=== PATIENT | female | born 1940 | race Caucasian/White ===

== ENCOUNTER → 2017-05-02 10:20 | Outpatient (CLI) | payer MEDICARE, SELFPAY ==
[2017-05-02 12:31] LABS: Anion Gap 5 (5-15); BUN 18 mg/dL (7-18); BUN/Creat Ratio 22.3 RATIO (10-20); Calcium,Total 9.4 mg/dL (8.5-10.1); Chloride 102 mmol/L (98-107); Cholesterol 193 mg/dL (200); Creatinine, Serum 0.81 mg/dL (0.55-1.02); EST Glomerular Filtration Rate 73 mL/min (>60); Est Glom Filt Rate - Afr Amer 88 mL/min (>60); Free T3 2.7 pg/mL (2.18-3.98); Glucose 85 mg/dL (74-106); High Density Lipoprotein 61 mg/dL; Potassium 4.4 mmol/L (3.5-5.1); Sodium Level 137 mmol/L (136-145); T4 Total, Thyroxin 10.5 ug/dL (4.8-13.9); Thyroid Stim Hormone (TSH) 2.29 uIU/mL (0.358-3.74); Triglycerides 132 mg/dL; Very Low Density Lipoprotein 26 mg/dL (5-40)
== END ==
PROVIDERS: Family Provider Family Medicine; PCP Family Medicine; Visit Provider Family Medicine
DX: I10 Essential (primary) hypertension (principal); E03.9 Hypothyroidism, unspecified
CPT/HCPCS: 36415; 80048; 80061; 84436; 84443; 84481

== ENCOUNTER → 2017-05-23 08:10 | Outpatient (CLI) | payer MEDICARE, SELFPAY ==
--- NOTE | 2017-05-23 08:15 | BI_ITS ---
MAMMOGRAPHY - BILATERAL SCREENING REASON FOR EXAM: Female, 77 years old. Routine annual screening examination. PERTINENT HISTORY: Mother with breast cancer. TECHNIQUE: Digital bilateral breast eze (3D mammographic acquisition) in the CC and MLO projections. 2-D mediolateral oblique (MLO) and craniocaudad (CC) views of both breasts were obtained. CAD: Full Field Digital Mammography with Computer Added Detection was performed. COMPARISON: Comparison is made with prior study dated March 19, 2016 and March 18, 2015. FINDINGS: Breast Composition: The breasts are heterogeneously dense, which may obscure small masses. There are no dominant masses or suspicious calcifications. Stable appearance of the benign calcifications in the deep inferior midportion of the right breast. No other significant abnormalities are identified. There has been no significant change since the prior study. BI/SCREENING MAMM (CAD), BILAT IMPRESSION: Stable bilateral screening mammogram. Yearly follow-up mammogram recommended. (A) ASSESSMENT CATEGORY: BIRADS Category 2: Benign. A letter regarding these results will be sent to the patient by the facility within 30 days. Approximately 10% of breast cancers are not detected by mammography. A normal mammogram should not delay biopsy of a clinically suspicious abnormality. [id number] Electronically Signed: Graham Tabor MD at 9:58 EDT Tel [phone], Service support ,
== END ==
PROVIDERS: Family Provider Family Medicine; PCP Family Medicine; Visit Provider Family Medicine
DX: Z12.31 Encounter for screening mammogram for malignant neoplasm of breast (principal)
CPT/HCPCS: 77063; 77067

== ENCOUNTER → 2017-11-04 10:07 | Outpatient (CLI) | payer MEDICARE, SELFPAY ==
[2017-11-04 12:40] LABS: Anion Gap 5 (5-15); BUN 19 mg/dL (7-18); BUN/Creat Ratio 22.4 RATIO (10-20); Calcium,Total 9.3 mg/dL (8.5-10.1); Chloride 103 mmol/L (98-107); Creatinine, Serum 0.85 mg/dL (0.55-1.02); EST Glomerular Filtration Rate 69 mL/min (>60); Est Glom Filt Rate - Afr Amer 83 mL/min (>60); Glucose 76 mg/dL (74-106); Potassium 4.2 mmol/L (3.5-5.1); Sodium Level 137 mmol/L (136-145); Thyroid Stim Hormone (TSH) 1.88 uIU/mL (0.358-3.74)
== END ==
PROVIDERS: Family Provider Family Medicine; PCP Family Medicine; Visit Provider Family Medicine
DX: I10 Essential (primary) hypertension (principal); E03.9 Hypothyroidism, unspecified
CPT/HCPCS: 36415; 80048; 84443

== ENCOUNTER → 2017-12-12 16:07 | Outpatient (CLI) | payer MEDICARE, SELFPAY | PROVIDERS: Family Provider Family Medicine; PCP Family Medicine; Visit Provider Family Medicine | DX: R19.7 Diarrhea, unspecified (principal) | CPT/HCPCS: 87493 ==

== ENCOUNTER → 2018-01-13 16:43 | Outpatient (CLI) | payer MEDICARE, SELFPAY ==
[2018-01-13 17:55] LABS: Absolute Lymphocyte Count 1.08 X10^3/ul (0.83-4.51); Absolute Neutrophil Count 14.5 X10^3/uL (2.0-7.7); Basophil# 0.04 X10^3/uL; Basophil% 0.2 % (0-1); Eosinophil# 0.24 X10^3/uL; Eosinophils% 1.4 % (0-5); Hematocrit 37.3 % (37-47); Hemoglobin 12.5 g/dl (12.0-15.0); Lymphocyte # 1.08 X10^3/ul (4.0); Lymphocyte % 6.3 % (19-41); Mean Corp Hgb Conc 33.5 g/gl (32-36); Mean Corpuscular Hgb 30.3 pg (27.0-32.0); Mean Corpuscular Volume 90.3 fL (81-99); Mean Platelet Vol. 9.7 fl (6.2-12.0); Monocyte# 1.35 X10^3/uL; Monocyte% 7.8 % (0-10); Neutrophil # 14.45 X10^3/uL (2.7-7.7); Neutrophil % 83.8 % (47-70); POSITIVE COUNT NO; POSITIVE DIFFERENTIAL NO; POSITIVE MORPHOLOGY NO; Platelet Count 292 K/mm3 (150-450); RBC Distribution Width CV 12.5 % (11.6-14.6); RBC Distribution Width SD 40.8 fl (35.1-43.9); Red Blood Count 4.13 M/mm3 (4.2-5.4); White Blood Count 17.3 K/mm3 (4.4-11.0)
[2018-01-13 18:22] LABS: ALB/GLOB Ratio 1.1 RATIO (0.9-2.4); AST(SGOT) 24 U/L (15-37); Alanine Aminotransfer ALT/SGPT 22 U/L (13-56); Albumin, Serum 3.3 g/dL (3.2-5.0); Alkaline Phosphatase 62 U/L (45-117); Anion Gap 9 (5-15); BUN 20 mg/dL (7-18); BUN/Creat Ratio 23.9 RATIO (10-20); Calcium,Total 9.5 mg/dL (8.5-10.1); Chloride 99 mmol/L (98-107); Creatinine, Serum 0.84 mg/dL (0.55-1.02); EST Glomerular Filtration Rate 70 mL/min (>60); Est Glom Filt Rate - Afr Amer 84 mL/min (>60); Globulin 3.1 g/dL (2.2-4.2); Glucose 108 mg/dL (74-106); Potassium 3.9 mmol/L (3.5-5.1); Protein, Total 6.4 g/dL (6.4-8.2); Sodium Level 135 mmol/L (136-145)
== END ==
PROVIDERS: Family Provider Family Medicine; PCP Family Medicine; Visit Provider Family Medicine
DX: R19.7 Diarrhea, unspecified (principal)
CPT/HCPCS: 36415; 80053; 85025; 87177; 87209; 87493; 87506

== ENCOUNTER → 2018-01-24 10:28 | Outpatient (CLI) | payer MEDICARE, SELFPAY ==
[2018-01-24 12:50] LABS: Absolute Lymphocyte Count 1.22 X10^3/ul (0.83-4.51); Absolute Neutrophil Count 9.1 X10^3/uL (2.0-7.7); Basophil# 0.12 X10^3/uL; Eosinophil# 0.11 X10^3/uL; Hematocrit 38.2 % (37-47); Hemoglobin 12.8 g/dl (12.0-15.0); Lymphocyte # 1.22 X10^3/ul (4.0); Lymphocyte % 10.5 % (19-41); Mean Corp Hgb Conc 33.5 g/gl (32-36); Mean Corpuscular Hgb 29.7 pg (27.0-32.0); Mean Corpuscular Volume 88.6 fL (81-99); Mean Platelet Vol. 9.5 fl (6.2-12.0); Monocyte# 0.89 X10^3/uL; Monocyte% 7.7 % (0-10); Neutrophil % 78.7 % (47-70); Platelet Count 358 K/mm3 (150-450); RBC Distribution Width CV 12.5 % (11.6-14.6); RBC Distribution Width SD 39.5 fl (35.1-43.9); Red Blood Count 4.31 M/mm3 (4.2-5.4); White Blood Count 11.6 K/mm3 (4.4-11.0)
[2018-01-24 13:02] LABS: POSITIVE COUNT NO; POSITIVE DIFFERENTIAL NO; POSITIVE MORPHOLOGY NO
[2018-01-24 13:32] LABS: Erythrocyte Sedimentation Rate 4 mm/hr (0-30)
[2018-01-24 14:04] LABS: ALB/GLOB Ratio 1.2 RATIO (0.9-2.4); AST(SGOT) 36 U/L (15-37); Alanine Aminotransfer ALT/SGPT 45 U/L (13-56); Albumin, Serum 3.3 g/dL (3.2-5.0); Alkaline Phosphatase 44 U/L (45-117); Anion Gap 11 (5-15); BUN 11 mg/dL (7-18); BUN/Creat Ratio 14.2 RATIO (10-20); CRP < 2.90 mg/L (0.0-3.0); Calcium,Total 8.9 mg/dL (8.5-10.1); Chloride 98 mmol/L (98-107); Creatinine, Serum 0.78 mg/dL (0.55-1.02); EST Glomerular Filtration Rate 76 mL/min (>60); Est Glom Filt Rate - Afr Amer 92 mL/min (>60); Ferritin 192 ng/mL (8-252); Globulin 2.7 g/dL (2.2-4.2); Glucose 98 mg/dL (74-106); Potassium 3.9 mmol/L (3.5-5.1); Sodium Level 132 mmol/L (136-145); Thyroid Stim Hormone (TSH) 2.01 uIU/mL (0.358-3.74)
--- OUTSIDE RECORDS SUMMARY | 2018-03-12 01:28 | XMS RPT_ITS ---
:1940 Author Organization OHIP Support Name Relationship Address Phone STEVEN KELLER Unavailable [address] + [place] [address] JAJA KELLER Unavailable [address] + [place] [address] R Unavailable Unavailable Unavailable STEVEN KELLER Unavailable [address] + [place] [address] JAJA KELLER Unavailable [address] + [place] [address] R Unavailable Unavailable Unavailable STEVEN KELLER Unavailable [address] + [place] [address] JAJA KELLER Unavailable [address] + [place] [address] R Unavailable Unavailable Unavailable STEVEN KELLER Unavailable [address] + [place] [address] JAJA KELLER Unavailable [address] + [place] [address] R Unavailable Unavailable Unavailable STEVEN KELLER Unavailable [address] + [place] [address] R Unavailable Unavailable Unavailable STEVEN KELLER Unavailable [address] + [place] [address] R Unavailable Unavailable Unavailable STEVEN KELLER Unavailable [address] + [place] [address] R Unavailable Unavailable Unavailable STEVEN KELLER Unavailable [address] + [place] [address] R Unavailable Unavailable Unavailable STEVEN KELLER Unavailable [address] + [place] [address] R Unavailable Unavailable Unavailable STEVEN KELLER Unavailable [address] + [place] [address] R Unavailable Unavailable Unavailable Care Team Providers Name Role Phone Akhil Monge Attending Unavailable Rivera, Ángel Primary Care Unavailable Monge, Akhil Attending Unavailable Monge, Akhil Referring Unavailable Rivera, Ángel Primary Care Unavailable Rivera, Ángel Attending Unavailable Rivera, Ángel Primary Care Unavailable Ashlie, Dereck Attending Unavailable Rivera, Ángel Referring Unavailable [facility], Dereck Attending Unavailable Ashlie, Dereck Referring Unavailable Rivera, Ángel Primary Care Unavailable Ashlie, Dereck Attending Unavailable Rivera, Ángel Referring Unavailable Rivera, Ángel Attending Unavailable Rivera, Ángel Referring Unavailable Rivera, Ángel Primary Care Unavailable Rivera, Ángel Attending Unavailable Rivera, Ángel Primary Care Unavailable Rivera, Ángel Attending Unavailable Rivera, Ángel Primary Care Unavailable Rivera, Ángel Attending Unavailable Rivera, Ángel Primary Care Unavailable PROBLEMS PROBLEMS DATE TYPE CONDITION / CODE ATTENDING STATUS SOURCE 11/04/2017 Unknown I10 - Essential RiveraÁngel layen Active [facility] (primary) Community hypertension / Hospital I10(ICD-10) Repository 11/04/2017 Unknown E03.9 - RiveraÁngel layne Active [facility] Hypothyroidism, Community unspecified / Hospital E03.9(ICD-10) Repository 06/15/2017 Unknown Z12.31 - Encounter RiveraÁngel layne Active [facility] for screening [facility] mammogram for Hospital malignant neoplasm Repository of breast / Z12.31(ICD-10) PROCEDURES PROCEDURES No Procedure Records FoundRESULTS RESULTS SURGERY VISIT REPORT Observed: 02/24/2018 Status: F Source: [facility] 12:28 PM [facility] REPOSITORY [facility] [address] [place] [address] [address] [place] [address] OFFICE VISIT Date of Service: 02/19/18 MR#: [id number] Acct: [id number] Name: KLEVER KELLERH Sidney Rep #: [id number] : 1940 Provider: Dereck Dailey MD Age/Sex: 77/F Location: [facility] Status: Signed Intake Vital Signs02/19/18 Height 5 ft 6 in 02/19/18 Weight: 160 lb Intake Visit Reasons: Consult Upper AND Lower Scope Routeman Required: No Is patient in pain?: No Allergies No Known Allergies Allergy (Verified 02/21/18 09:12) Medications Lactobacillus acidophilus 1.5 mg (250 million cell) capsule 100 mmu cells PO DAILY 02/19/18 [History Confirmed 02/21/18] antiarthritic combination no.2 900 mg tablet 900 mg PO DAILY tab 02/19/18 [History Confirmed 02/21/18] levothyroxine 50 mcg capsule 50 mcg PO DAILY 02/19/18 [History Confirmed 02/21/18] losartan 50 mg tablet 50 mg PO DAILY 02/19/18 [History Confirmed 02/21/18] metoprolol succinate ER 100 mg tablet,extended release 24 hr 100 mg PO DAILY 02/19/18 [History Confirmed 02/21/18] multivit,mineral-folic acid 800 mcg-vit K 100 mcg-herbal no.289 tablet 1 tab PO DAILY tab 02/19/18 [History Confirmed 02/21/18] omeprazole 20 mg tablet,delayed release 20 mg PO DAILY 02/19/18 [History Confirmed 02/21/18] sucralfate 1 gram tablet 1 g PO QACHS 02/19/18 [History Confirmed 02/21/18] Hydroxychloroquine Sulfate [Plaquenil] 200 mg PO DAILY 02/21/18 [History Confirmed 02/21/18] Wheat Dextrin [Benefiber] 1 ea PO DAILY 02/21/18 [History Confirmed 02/21/18] PFSH Medical History Diarrhea (Acute) Hypertension (Chronic) Rheumatoid arthritis (Acute) Thyroid disease (Acute) Surgical History Hx of colonoscopy (Acute) Family History Mother Arthritis Breast cancer Hypertension Heart disease Father Heart disease High cholesterol Brother Colon cancer Sister Thyroid disorder Social History Smoking Status: Never smoker second hand exposure: No alcohol intake: current alcohol intake frequency: holidays/special occasions only substance use type: does not use caffeine: Yes what type of physical activity do you participate in: aerobics, walking, weight training frequency: 3-4 times per week HPI HPI HPI: BRIAN KELLER, is a 77 F who presents to the office today for evaluation of occasional diarrhea and weight loss. She is noticed some generalized abdominal pain she has been tested for C. difficile is negative. In January she was treated with Cipro and Flagyl was noted to have heme positive stools and a CT of the abdomen and pelvis showed colitis of the left side of the colon. She has noted that her diarrhea has stopped. She still does not have much of any appetite. ROS General General: Yes weight change; no appetite, fatigue, colon cancer, breast cancer or weakness HEENT HEENT: No difficulty swallowing, eye injury, eye surgery, swollen glands or hoarseness Endo Endocrine: Yes thyroid disease; no diabetes mellitus, thyroid cancer, Hair loss, heat intolerance or cold intolerance Skin Skin: No rash or changing moles Musc Musculoskeletal: Yes arthritis and rheumatoid arthritis; no back problems, gout or joint pain Cardio Cardiovascular: Yes high blood pressure; no murmur, pacemaker, heart disease, atrial fibrillation, heart attack, heart stent, palpitations, shortness of breat with exertion or chest pain Psych Psychiatric: No depression, anxiety or hearing voices Resp Respiratory: No shortness of breath, No sleep apnea, No cough, No COPD, No asthma, No emphysema, No wheezing Gastro Gastrointestinal: Yes diarrhea, No abdominal pain, No nausea or vomiting, No constipation, No blood in stool, No acid reflux, No hemorrhoids, No ulcers, No gallbladder problem, No black,tarry stools [facility] Hematologic: No blood thinners, No blood disorders, No bleeding, No anemia, No blood clots Neuro Neurologic: No system reviewed and no additional complaints, except as docu, No as per HPI, No abnormal walking, No abnormal hearing, No abnormal movements, No abnormal speech, No behavioral changes, No burning sensations, No confusion, No seizure-like activity, No unsteadiness, No dizziness, No localized weakness, No frequent falls, No headache(s), No lack of coordination, No loss of vision, No memory loss, No numbness, No other visual disturbances, No radiating pain, No restless legs, No sensory deficit, No fainting, No tingling, No tremor(s), No weakness, No other Exam Const General: well developed, no acute distress, well hydrated Orientation: oriented to person, oriented to place, oriented to time [facility] Head: normocephalic, atraumatic Ears: external ears normal Mouth: moist mucous membranes Eyes Sclera: sclerae normal Pupils: normal by confrontation Neck Neck: no lymphadenopathy noted Neck mass: No Thyroid: symmetrical, thyroid normal Chest Chest palpation AND inspection: normal inspection of the chest Resp Effort AND Inspection: normal respiratory effort Auscultation: clear to auscultation bilaterally Percussion: percussion normal Cardio Rate: regular rate Rhythm: regular rhythm Heart Sounds: no murmurs GI Palpation: soft, no masses, no hepatosplenomegaly, nontender Rectal Exam: other Other: Rectal exam deferred. Extrem General: no clubbing, cyanosis or edema, normal to inspection Assessment AND Plan Problems 1. Diarrhea, unspecified type R19.7 2. Weight loss, non-intentional R63.4 3. Heme positive stool R19.5 Plan I have discussed the above with the patient. I have offered the patient colonoscopy as well as an esophagogastroduodenoscopy for evaluation. I have explained the risks/benefits of the procedure and described the procedure. I have discussed the risks with the patient, including but not limited to: infection, bleeding, perforation of the GI tract requiring emergency surgery, inability to complete the procedure, injury to any internal organs, complications of anesthesia, etc. - the patient understands and agrees to proceed. I have answered all the patient's questions to the patient's satisfaction and the patient has no further questions. The patient has been given instructions for the colon cleansing preparation. Orders Orders: Medications New: Coding Level of Care Code Off vis,new,level 3 Diagnoses Diarrhea, unspecified type R19.7 Diarrhea type: unspecified type Weight loss, non-intentional R63.4 Heme positive stool R19.5 02/24/18 1228 <Electronically signed by Dereck Dailey MD> Date Dereck Dailey MD Cosigner Signature: Date (if applicable) CC: Ángel Rivera MD OPERATIVE REPORT - Observed: 02/24/2018 Status: F Source: [facility] ENDOSCOPY 9:06 AM REPOSITORY [facility] Medical Records Department [address] [place] [address] Operative Report - Endoscopy MR#: [id number] Acct: [id number] Name: BRIAN KELLER Rep #: [id number] : 1940 77 From: Dereck Dailey MD PCP: Ángel Rivera MD Status: REG [facility] Patient Name: Brian Keller Procedure Date: 02/24/2018 8:45 AM Date of : 1940 Age: 77 Procedure: Colonoscopy Indications: Clinically significant diarrhea of unexplained origin, Heme positive stool, Abnormal CT of the GI tract Providers: Dereck Dailey MD Referring MD: Dereck Dailey MD Medicines: See the Anesthesia note for documentation of the administered medications Patient Profile: This is a 77 year old female. Refer to note in patient chart for documentation of history and physical. Last Colonoscopy: more than 10 years ago. Complications: No immediate complications. Procedure: Pre-Anesthesia Assessment: - Prior to the procedure, a History and Physical was performed, and patient medications and allergies were reviewed. The patient's tolerance of previous anesthesia was also reviewed. The risks and benefits of the procedure and the sedation options and risks were discussed with the patient. All questions were answered, and informed consent was obtained. Prior Anticoagulants: The patient has taken no previous anticoagulant or antiplatelet agents. ASA Grade Assessment: II - A patient with mild systemic disease. After reviewing the risks and benefits, the patient was deemed in satisfactory condition to undergo the procedure. - Prior to the procedure, a History and Physical was performed, and patient medications and allergies were reviewed. The patient's tolerance of previous anesthesia was also reviewed. The risks and benefits of the procedure and the sedation options and risks were discussed with the patient. All questions were answered, and informed consent was obtained. Prior Anticoagulants: The patient has taken no previous anticoagulant or antiplatelet agents. ASA Grade Assessment: II - A patient with mild systemic disease. After reviewing the risks and benefits, the patient was deemed in satisfactory condition to undergo the procedure. After I obtained informed consent, the scope was passed under direct vision. Throughout the procedure, the patient's blood pressure, pulse, and oxygen saturations were monitored continuously. The Colonoscope was introduced through the anus and advanced to the cecum, identified by appendiceal orifice and ileocecal valve. The colonoscopy was performed without difficulty. The patient tolerated the procedure well. The quality of the bowel preparation was good. Scope In: 8:46:10 AM Scope Withdrawal Time 0 hours 6 minutes 49 seconds Scope Out: 8:57:23 AM Total Procedure Duration Time 0 hours 11 minutes 13 seconds Findings: Non-bleeding internal hemorrhoids were found during retroflexion. The hemorrhoids were mild and small. A few small-mouthed diverticula were found in the sigmoid colon and descending colon. The colon (entire examined portion) appeared normal. Biopsies for histology were taken with a cold forceps from the entire colon for evaluation of microscopic colitis. The exam was otherwise without abnormality. The exam was otherwise without abnormality. Impression: - Non-bleeding internal hemorrhoids. - Diverticulosis in the sigmoid colon and in the descending colon. - The entire examined colon is normal. Biopsied. - The examination was otherwise normal. Recommendation: - Discharge patient to home. - Resume previous diet. - Continue present medications. - Await pathology results. - Repeat colonoscopy in 5 years for surveillance. - Return to my office in 1 week. Procedure Code(s): --- Professional --- 78070, Colonoscopy, flexible; with biopsy, single or multiple Diagnosis Code(s): --- Professional --- K64.8, Other hemorrhoids R19.7, Diarrhea, unspecified R19.5, Other fecal abnormalities K57.30, Diverticulosis of large intestine without perforation or abscess without bleeding R93.3, Abnormal findings on diagnostic imaging of other parts of digestive tract CPT copyright 2017 [employer]. All rights reserved. The codes documented in this report are preliminary and upon fire hydrant operator review may be revised to meet current compliance requirements. MD Dereck Joseph MD 02/24/2018 9:05:41 AM This report has been signed electronically. Number of Addenda: 0 Note Initiated On: 02/24/2018 8:45 AM 02/24/18 0905 Date Dereck Birch Signature: Date (if indicated) CC: Dereck Dailey MD; Ágnel Rivera MD Date Dictated: 02/24/18 0845 Date Transcribed: Change Management Director: SOCO Signed OPERATIVE REPORT - Observed: 02/24/2018 Status: F Source: [facility] ENDOSCOPY 9:02 AM REPOSITORY [facility] Medical Records Department [address] [place] [address] Operative Report - Endoscopy MR#: [id number] Acct: [id number] Name: BRIAN KELLER Rep #: [id number] : 1940 77 From: Dereck Dailey MD PCP: Ángel Rivera MD Status: REG [facility] Patient Name: Brian Keller Procedure Date: 02/24/2018 8:30 AM Date of : 1940 Age: 77 Procedure: Upper GI endoscopy Indications: Heme positive stool, Abnormal CT of the GI tract Providers: Dereck Dailey MD Referring MD: Dereck Dailey MD Medicines: See the Anesthesia note for documentation of the administered medications Patient Profile: This is a 77 year old female. Refer to note in patient chart for documentation of history and physical. Complications: No immediate complications. Procedure: Pre-Anesthesia Assessment: - Prior to the procedure, a History and Physical was performed, and patient medications and allergies were reviewed. The patient's tolerance of previous anesthesia was also reviewed. The risks and benefits of the procedure and the sedation options and risks were discussed with the patient. All questions were answered, and informed consent was obtained. Prior Anticoagulants: The patient has taken no previous anticoagulant or antiplatelet agents. ASA Grade Assessment: II - A patient with mild systemic disease. After reviewing the risks and benefits, the patient was deemed in satisfactory condition to undergo the procedure. After obtaining informed consent, the endoscope was passed under direct vision. Throughout the procedure, the patient's blood pressure, pulse, and oxygen saturations were monitored continuously. The gastroscope was introduced through the mouth, and advanced to the second part of duodenum. The upper GI endoscopy was accomplished without difficulty. The patient tolerated the procedure well. Scope In: Scope Out: 8:43:51 AM Findings: The Z-line was regular and was found 38 cm from the incisors. The examined esophagus was normal. Localized minimal inflammation characterized by erythema was found in the prepyloric region of the stomach. Biopsies were taken with a cold forceps for Helicobacter pylori testing. The examined duodenum was normal. Biopsies for histology were taken with a cold forceps for evaluation of celiac disease. Impression: - Z-line regular, 38 cm from the incisors. - Normal esophagus. - Gastritis. Biopsied. - Normal examined duodenum. Biopsied. Recommendation: - Await pathology results. - Repeat upper endoscopy (date not yet determined) to assess disease activity. - Return to my office in 1 week. - Continue present medications. Procedure Code(s): --- Professional --- 81143, Esophagogastroduodenoscopy, flexible, transoral; with biopsy, single or multiple Diagnosis Code(s): --- Professional --- K29.70, Gastritis, unspecified, without bleeding R19.5, Other fecal abnormalities R93.3, Abnormal findings on diagnostic imaging of other parts of digestive tract CPT copyright 2017 [employer]. All rights reserved. The codes documented in this report are preliminary and upon fire hydrant operator review may be revised to meet current compliance requirements. MD Dereck Joseph MD 02/24/2018 9:02:20 AM This report has been signed electronically. Number of Addenda: 0 Note Initiated On: 02/24/2018 8:30 AM 02/24/1802 Date Dereck Dailey MD Cosigner Signature: Date (if indicated) CC: Dereck Dailey MD; Ángel Rivera MD Date Dictated: 02/24/18829 Date Transcribed: Change Management Director: DP Signed IMMUNOHISTOCHEMISTRY Observed: 02/24/2018 Status: F Source: [facility] 8:30 AM REPOSITORY Patient: BRIAN KELLER : 1940 (77/F) Acct Num: [id number] Phys: Ashlie ROB,Dereck Unit Num: [id number] Loc: EN Specimen: [id number] Received: 02/24/18 - 1025 Spec Type: IMMUNO TISSUES 1 TISSUES: B. Stomach, NOS SPECIMEN INFORMATION: Tissue Source: B - Antrum biopsy Clinical Info: Heme-positive stool Specimen Number: [id number] CPT code: 42246 METHODOLOGY: Deparaffinized sections of prefer/formalin-fixed tissue or PAP/DQ stained slides are incubated with monoclonal/polyclonal antibodies/oligonucleotide probes. Localization is made via biotin free immunoperoxidase method. Appropriate controls are performed and reacted as expected. Results on target cell population are indicated in the following table: RESULTS: ANTIBODY / CLONE RESULT Block B H Pylori (polyclonal) negative These tests were developed and their performance characteristics determined by [facility]. They may not have been cleared or approved by the U.S. Food and Drug Administration. The FDA has determined that such clearance or approval is not necessary. INTERPRETATION: B. Antrum, biopsy: Negative for Helicobacter pylori organisms. AM:luis 02/25/18 PHYSICIAN AND INSTITUTION [address] [address] Signed Mo Munoz, 02/25/18 <signature on file> Performed By: #### PIMM #### [facility] [address] [place] [address]. [place], [place], [address] EGD ([facility]) Observed: 02/24/2018 Status: F Source: [facility] 8:30 AM REPOSITORY Patient: BRIAN KELLER : 1940 (77/F) Acct Num: [id number] Phys: Dereck Dailey MD Unit Num: [id number] Loc: EN Specimen: [id number] Received: 02/24/18 - 08 Spec Type: EGD BIOPSY TISSUES 1 TISSUES: A. Small intestine biopsy B. Gastric mucous membrane C. COLON BIOPSY COMMENT B. The results of immunohistochemistry for Helicobacter pylori will be reported separately ([id number]). C. Rare neutrophils are seen in glandular epithelium. The mucosa contains increased number of eosinophils. The significance of this is unclear. Clinical correlation is suggested. Trichrome stain with matched control does not reveal a thickened basal plate. GROSS DESCRIPTION A - Received in fixative is one container labeled with the patient's name and designated biopsy of small intestine. The specimen consists of multiple irregular fragments of light novoa soft tissue that in aggregate measure 0.3 x 0.3 x 0.1 cm. The specimen is totally submitted in one cassette. B - Received in fixative is one container labeled with the patient's name and designated antrum biopsy. The specimen consists of one irregular fragment of light novoa soft tissue that measures 0.4 x 0.2 x 0.1 cm. The specimen is totally submitted in one cassette. C - Received in fixative is one container labeled with the patient's name and designated random colon biopsy. The specimen consists of multiple irregular fragments of light novoa soft tissue that in aggregate measure 2.5 x 0.5 x 0.1 cm. The specimen is totally submitted in one cassette. / SJ:luis 02/24/18 TC:5 CPT: 10255 x3, 14635 HEADER OPERATION: Colonoscopy, EGD ([facility]) PRE-OP DIAGNOSIS: Heme-positive stool TISSUE SUBMITTED: A - Biopsy of small intestine, B - Antrum biopsy for H. pylori and path, C - Random colon biopsies MICROSCOPIC DESCRIPTION Slides are reviewed. MICROSCOPIC DIAGNOSIS A. Small bowel, biopsy: No significant pathologic change. No evidence of enteritis. B. Gastric antrum, biopsy: Mild chronic gastritis. C. Colon, random biopsy: Rare cryptitis. See comment. AM:luis 02/25/18 Signed Mo Munoz, 02/25/18 <signature on file> Performed By: #### PEGD #### [facility] [address] [place], [address] ABDOMEN/PELVIS WITHOUT Observed: 01/31/2018 Status: F Source: [facility] CONT 7:14 AM REPOSITORY [facility] Imaging Services [address] [place] [address] Abdomen/Pelvis without Cont MR#: [id number] Acct: [id number] Name: BRIAN KELLER Rep #: [id number] : 1940 F 77 From: Mitchel Scott PCP: Ángel Rivera MD Status: REG CLI Study: Abdomen/Pelvis without Cont Date of Exam: 01/31/18 Exam# [id number] Ordering Dr: Akhil Monge MD STUDY: CT ABDOMEN AND PELVIS WITHOUT CONTRAST REASON FOR EXAM: Female, 77 years old. Persistent diarrhea RADIATION DOSAGE (If Supplied By Facility): CTDIvol = ( 8.96 ) mGy, DLP = ( 402.80 ) mGycm TECHNIQUE: Transaxial images were obtained from the dome of the diaphragm to the symphysis pubis without oral contrast, and without intravenous contrast. Sagittal and coronal images were reconstructed. Individualized dose optimization techniques were used for this CT. COMPARISON: None. FINDINGS: The visualized lung bases are unremarkable. The visualized portions of the heart are within normal limits. Normal liver. Normal gallbladder and extrahepatic biliary system. Normal spleen. Normal pancreas. Normal bilateral adrenal glands. There are NO kidney stones or ureteral stones. There is NO hydronephrosis. There are bilateral kidney cysts. There are 2 discrete dense mass is in the LEFT kidney which could be hemorrhagic cysts. Normal visualized stomach. Normal small intestine. There is mild thickening of the LEFT colon suggesting mild colitis. There is NO diverticulitis, obstruction or mass. The appendix is visualized and appears normal. Normal abdominal aorta. Normal inferior vena cava. Normal retroperitoneum. Normal urinary bladder. There is atrophy of the uterus. There is NO ascites or free air, abscess or adenopathy. Normal abdominal wall. Normal osseous structures. CT/Abdomen/Pelvis without Cont IMPRESSION: There are NO kidney stones or ureteral stones. There is NO hydronephrosis. There are bilateral kidney cysts. There are 2 discrete dense mass is in the LEFT kidney which could be hemorrhagic cysts. There is mild thickening of the LEFT colon suggesting mild colitis. There is NO diverticulitis, obstruction or mass. The appendix is visualized and appears normal. There is NO ascites or free air, abscess or adenopathy. Electronically Signed: Mitchel Scott MD at 7:47 EST , Service support , CC: Akhil Monge MD; Ángel Rivera MD Change Management Director: Signed CBC W/DIFF, AUTOMATED Collected: 01/24/2018 Status: F Source: [facility] 10:29 AM REPOSITORY TYPE CODE TESTS RESULT OUT OF RANGE REFERENCE UNITS LAB L100.1000 4.4-11.0 K/mm3 High WBC 11.6 LAB L100.1200 4.2-5.4 M/mm3 Normal RBC 4.31 LAB L100.1300 12.0-15.0 g/dl Normal HGB 12.8 LAB L100.1400 37-47 % Normal HCT 38.2 LAB L100.1500 81-99 fL Normal MCV 88.6 LAB L100.1600 27.0-32.0 pg Normal MCH 29.7 LAB L100.1700 32-36 g/gl Normal MCHC 33.5 LAB L100.1810 11.6-14.6 % Normal RDW CV 12.5 LAB L100.1820 35.1-43.9 fl Normal RDW SD 39.5 LAB L100.1900 150-450 K/mm3 Normal PLT 358 LAB L100.2000 6.2-12.0 fl Normal MPV 9.5 LAB L100.2100 47-70 % High NEUT% 78.7 LAB L100.2200 19-41 % Low LY% 10.5 LAB L100.2300 0-10 % Normal MONO% 7.7 LAB L100.2400 0-5 % Normal EO% 1.0 LAB L100.2500 0-1 % Normal BASO% 1.0 LAB L100.2550 0.0-0.9 % High IM GRAN % 1.100 Result Comment: IG% - Immature Granulocytes (promyelocytes, myelocytes and metamyelocytes) > 1% indicates that a LEFT SHIFT is Present. LAB L100.2620 2.0-7.7 X10 3/uL High Absolute Neut 9.1 LAB L100.2720 0.83-4.51 X10 3/ul Normal Absolute Lymph 1.22 Performed By: #### L100.0100, L101.9900 #### [facility] [address] [place], [place], [id number] ERYTHROCYTE SED RATE Collected: 01/24/2018 Status: F Source: [facility] 10:29 AM REPOSITORY TYPE CODE TESTS RESULT OUT OF RANGE REFERENCE UNITS LAB L102.0000 0-30 mm/hr Normal SED RATE 4 Performed By: #### L100.0100, L101.9900 #### [facility] [address] [place], [address] COMPREHENSIVE METABOLIC Collected: 01/24/2018 Status: F Source: [facility] 10:29 AM REPOSITORY TYPE CODE TESTS RESULT OUT OF RANGE REFERENCE UNITS LAB L501.0100 74-106 mg/dL Normal GLU 98 Result Comment: Please note revised GLUCOSE reference range effective 2017. LAB L501.1000 7-18 mg/dL Normal BUN 11 LAB L501.1100 0.55-1.02 mg/dL Normal CREAT,SERUM 0.78 Result Comment: The validity of the calculated GFR AND GFRAA in patients over 70 years has not been determined. Clinical correlation is essential. LAB L501.1110 >60 mL/min Normal EST GFR 76 Result Comment: Non- GFR Calc LAB L501.1115 >60 mL/min Normal EST GFR - AA 92 Result Comment: GFR Calc LAB L501.1300 10-20 RATIO Normal BUN/CRE 14.2 LAB L501.1500 6.4-8.2 g/dL Low T PROT 6.0 LAB L501.1800 3.2-5.0 g/dL Normal ALB 3.3 LAB L501.1950 2.2-4.2 g/dL Normal GLOB 2.7 LAB L501.2000 0.9-2.4 RATIO Normal A/G 1.2 LAB L501.2200 8.5-10.1 mg/dL CA Normal 8.9 LAB L501.4100 15-37 U/L Normal AST 36 LAB L501.4305 45-117 U/L Low ALK P 44 LAB L501.4405 13-56 U/L Normal ALT 45 LAB L501.4600 0.20-1.00 mg/dL T Normal BILI 0.40 LAB L501.5300 136-145 mmol/L Low NA 132 LAB L501.5600 3.5-5.1 mmol/L K Normal 3.9 LAB L501.5900 98-107 mmol/L CL Normal 98 LAB L501.6100 21.0-32.0 mmol/L Normal CO2 23.0 LAB L501.6200 5-15 Normal GAP 11 Performed By: #### L500.4050, L501.6710, L501.9520, L503.6550 #### [facility] [address] [place], [address] CRP Collected: 01/24/2018 Status: F Source: [facility] 10:29 AM REPOSITORY TYPE CODE TESTS RESULT OUT OF RANGE REFERENCE UNITS LAB L501.6710 0.0-3.0 mg/L Normal < 2.90 C-REACTIVE PROT Result Comment: C-Reactive Protein (CRP) provides useful information for the diagnosis, therapy and monitoring of inflammatory processes and associated diseases. For the evaluation of Relative Risk for Cardiovascular Disease, a High Sensitivity CRP (HSCRP) should be ordered. Performed By: #### L500.4050, L501.6710, L501.9520, L503.6550 #### [facility] [address] [place], [address] THYROID STIM HORMONE Collected: 01/24/2018 Status: F Source: [facility] (TSH) 10:29 AM REPOSITORY TYPE CODE TESTS RESULT OUT OF RANGE REFERENCE UNITS LAB L501.9520 0.358-3.74 uIU/mL Normal TSH 2.01 Performed By: #### L500.4050, L501.6710, L501.9520, L503.6550 #### [facility] [address] [place], [address] FERRITIN Collected: 01/24/2018 Status: F Source: [facility] 10:29 AM REPOSITORY TYPE CODE TESTS RESULT OUT OF RANGE REFERENCE UNITS LAB L503.6550 8-252 ng/mL Normal FERRITIN 192 Performed By: #### L500.4050, L501.6710, L501.9520, L503.6550 #### [facility] [address] [place], [address] CBC W/DIFF, AUTOMATED Collected: 01/13/2018 Status: F Source: [facility] 5:00 PM REPOSITORY TYPE CODE TESTS RESULT OUT OF RANGE REFERENCE UNITS LAB L100.1000 4.4-11.0 K/mm3 High WBC 17.3 LAB L100.1200 4.2-5.4 M/mm3 Low RBC 4.13 LAB L100.1300 12.0-15.0 g/dl Normal HGB 12.5 LAB L100.1400 37-47 % Normal HCT 37.3 LAB L100.1500 81-99 fL Normal MCV 90.3 LAB L100.1600 27.0-32.0 pg Normal MCH 30.3 LAB L100.1700 32-36 g/gl Normal MCHC 33.5 LAB L100.1810 11.6-14.6 % Normal RDW CV 12.5 LAB L100.1820 35.1-43.9 fl Normal RDW SD 40.8 LAB L100.1900 150-450 K/mm3 Normal PLT 292 LAB L100.2000 6.2-12.0 fl Normal MPV 9.7 LAB L100.2100 47-70 % High NEUT% 83.8 LAB L100.2200 19-41 % Low LY% 6.3 LAB L100.2300 0-10 % Normal MONO% 7.8 LAB L100.2400 0-5 % Normal EO% 1.4 LAB L100.2500 0-1 % Normal BASO% 0.2 LAB L100.2550 0.0-0.9 % Normal IM GRAN % 0.500 Result Comment: IG% - Immature Granulocytes (promyelocytes, myelocytes and metamyelocytes) > 1% indicates that a LEFT SHIFT is Present. LAB L100.2620 2.0-7.7 X10 3/uL High Absolute Neut 14.5 LAB L100.2720 0.83-4.51 X10 3/ul Normal Absolute Lymph 1.08 Performed By: #### L100.0100 #### [facility] [address] [place], [address] COMPREHENSIVE METABOLIC Collected: 01/13/2018 Status: F [facility] REPOSITORY TYPE CODE TESTS RESULT OUT OF RANGE REFERENCE UNITS LAB L501.0100 74-106 mg/dL High GLU 108 Result Comment: Fasting Glucose result from 100 to 125 mg/dL suggests IMPAIRED HOMEOSTASIS per A.D.A. criteria. Please note revised GLUCOSE reference range effective 2017. LAB L501.1000 7-18 mg/dL High BUN 20 LAB L501.1100 0.55-1.02 mg/dL Normal CREAT,SERUM 0.84 Result Comment: The validity of the calculated GFR AND GFRAA in patients over 70 years has not been determined. Clinical correlation is essential. LAB L501.1110 >60 mL/min Normal EST GFR 70 Result Comment: Non- GFR Calc LAB L501.1115 >60 mL/min Normal EST GFR - AA 84 Result Comment: GFR Calc LAB L501.1300 10-20 RATIO High BUN/CRE 23.9 LAB L501.1500 6.4-8.2 g/dL T Normal PROT 6.4 LAB L501.1800 3.2-5.0 g/dL Normal ALB 3.3 LAB L501.1950 2.2-4.2 g/dL Normal GLOB 3.1 LAB L501.2000 0.9-2.4 RATIO Normal A/G 1.1 LAB L501.2200 8.5-10.1 mg/dL CA Normal 9.5 LAB L501.4100 15-37 U/L Normal AST 24 LAB L501.4305 45-117 U/L Normal ALK P 62 LAB L501.4405 13-56 U/L Normal ALT 22 LAB L501.4600 0.20-1.00 mg/dL T Normal BILI 0.40 LAB L501.5300 136-145 mmol/L Low NA 135 LAB L501.5600 3.5-5.1 mmol/L K Normal 3.9 LAB L501.5900 98-107 mmol/L CL Normal 99 LAB L501.6100 21.0-32.0 mmol/L Normal CO2 27.0 LAB L501.6200 5-15 Normal GAP 9 Performed By: #### L500.4050 #### [facility] [address] [place], [address] Observed: 01/13/2018 Status: F Source: [facility] CDIFF (MOLECULAR) 5:00 PM REPOSITORY Cdiff-Molecular Normal Reference Range = Negative C. Diff DNA Negative- No toxigenic C. Diff DNA Detected NAAT METHOD Testing was performed using nucleic acid amplification Performed By: #### M100.6796, M100.637 #### [facility] [address] [place], [address] Observed: 01/13/2018 Status: F Source: [facility] ENTERIC PATHOGEN 5:00 PM PANEL STOOL REPOSITORY EP PANEL STOOL Normal Reference Range = Not Detected Not detected for Campylobacter group, Salmonella species, Shigella species, Vibrio Group, Yersinia enterocolitica, EHEC (Shiga Toxin 1, Shiga Toxin 2), Norovirus Gl/Gll, and Rotavirus A. Other common stool pathogens are not detected on this panel include: Aeromonas/Plesiomonas or parasites. Order testing for these organisms separately if suspected. This is an amplified DNA test which makes it both specific and sensitive. CAMPYLOBACTER Not Detected Salmonella Not Detected Shigella sp. Not Detected Shiga Toxin Not Detected Yersinia Not Detected VIBRIO Not Detected Norovirus Not Detected Rotavirus Not Detected Performed By: #### M100.6796, M100.637 #### [facility] [address] [place], [address] Observed: 01/13/2018 Status: F Source: [facility] OVA AND PARASITES 5:00 PM REPOSITORY O + P OVA AND PARASITES EXAM, ROUTINE These results were obtained using wet preparation(s) and trichrome stained smear. This test does not include testing for Crytosporidium parvum, Cyclospora, or Microsporidia. One negative specimen does not rule out the possibility of a parasitic infection. TESTING PERFORMED AT [facility]. ORIGINAL REPORT ON FILE IN LAB CONTAINS ADDITIONAL TEST SITE INFORMATION. Ova/Parasite Exam NO OVA, CYSTS, OR PARASITES FOUND. Performed By: #### M600.5000 #### [facility] [address] [place], [address] Observed: 12/12/2017 Status: F Source: [facility] CDIFF (MOLECULAR) 3:25 PM REPOSITORY Cdiff-Molecular Normal Reference Range = Negative C. Diff DNA Negative- No toxigenic C. Diff DNA Detected NAAT METHOD Testing was performed using nucleic acid amplification Performed By: #### M100.6796 #### [facility] [address] [place], [address] BASIC METABOLIC Collected: 11/04/2017 Status: F Source: [facility] PROFILE (BMP) 10:09 AM REPOSITORY TYPE CODE TESTS RESULT OUT OF RANGE REFERENCE UNITS LAB L501.0100 74-106 mg/dL Normal GLU 76 Result Comment: Please note revised GLUCOSE reference range effective 2017. LAB L501.1000 7-18 mg/dL High BUN 19 LAB L501.1100 0.55-1.02 mg/dL Normal CREAT,SERUM 0.85 Result Comment: The validity of the calculated GFR AND GFRAA in patients over 70 years has not been determined. Clinical correlation is essential. LAB L501.1110 >60 mL/min Normal EST GFR 69 Result Comment: Non- GFR Calc LAB L501.1115 >60 mL/min Normal EST GFR - AA 83 Result Comment: GFR Calc LAB L501.1300 10-20 RATIO High BUN/CRE 22.4 LAB L501.2200 8.5-10.1 mg/dL CA Normal 9.3 LAB L501.5300 136-145 mmol/L NA Normal 137 LAB L501.5600 3.5-5.1 mmol/L K Normal 4.2 LAB L501.5900 98-107 mmol/L CL Normal 103 LAB L501.6100 21.0-32.0 mmol/L Normal CO2 29.0 LAB L501.6200 5-15 Normal GAP 5 Performed By: #### L500.2500, L501.9520 #### [facility] [address] [place], [address] THYROID STIM HORMONE Collected: 11/04/2017 Status: F Source: [facility] (TSH) 10:09 AM REPOSITORY TYPE CODE TESTS RESULT OUT OF RANGE REFERENCE UNITS LAB L501.9520 0.358-3.74 uIU/mL Normal TSH 1.88 Performed By: #### L500.2500, L501.9520 #### [facility] [address] [place], [address] SCREENING MAMM (CAD), Observed: 05/23/2017 Status: F Source: [facility] BILAT 8:15 AM [facility] REPOSITORY [facility] Imaging Services [address] [place] [address] SCREENING MAMM (CAD), BILAT MR#: [id number] Acct: [id number] Name: BRIAN KELLER Rep #: [id number] : 1940 F 77 From: Graham Tabor MD PCP: Ángel Rivera MD Status: REG CLI Study: SCREENING MAMM (CAD), BILAT Date of Exam: 05/23/17 Exam# [id number] Ordering Dr: Ángel Rivera MD MAMMOGRAPHY - BILATERAL SCREENING REASON FOR EXAM: Female, 77 years old. Routine annual screening examination. PERTINENT HISTORY: Mother with breast cancer. TECHNIQUE: Digital bilateral breast eze (3D mammographic acquisition) in the CC and MLO projections. 2-D mediolateral oblique (MLO) and craniocaudad (CC) views of both breasts were obtained. CAD: Full Field Digital Mammography with Computer Added Detection was performed. COMPARISON: Comparison is made with prior study dated March 19, 2016 and March 18, 2015. FINDINGS: Breast Composition: The breasts are heterogeneously dense, which may obscure small masses. There are no dominant masses or suspicious calcifications. Stable appearance of the benign calcifications in the deep inferior midportion of the right breast. No other significant abnormalities are identified. There has been no significant change since the prior study. BI/SCREENING MAMM (CAD), BILAT IMPRESSION: Stable bilateral screening mammogram. Yearly follow-up mammogram recommended. (A) ASSESSMENT CATEGORY: BIRADS Category 2: Benign. A letter regarding these results will be sent to the patient by the facility within 30 days. Approximately 10% of breast cancers are not detected by mammography. A normal mammogram should not delay biopsy of a clinically suspicious abnormality. [id number] Electronically Signed: Graham Tabor MD at 9:58 EDT Tel [phone], Service support , CC: Ángel Rievra MD Change Management Director: Signed BASIC METABOLIC Collected: 05/02/2017 Status: F Source: [facility] PROFILE (BMP) 10:22 AM REPOSITORY TYPE CODE TESTS RESULT OUT OF RANGE REFERENCE UNITS LAB L501.0100 74-106 mg/dL Normal GLU 85 Result Comment: Please note revised GLUCOSE reference range effective 2017. LAB L501.1000 7-18 mg/dL Normal BUN 18 LAB L501.1100 0.55-1.02 mg/dL Normal CREAT,SERUM 0.81 Result Comment: The validity of the calculated GFR AND GFRAA in patients over 70 years has not been determined. Clinical correlation is essential. LAB L501.1110 >60 mL/min Normal EST GFR 73 Result Comment: Non- GFR Calc LAB L501.1115 >60 mL/min Normal EST GFR - AA 88 Result Comment: GFR Calc LAB L501.1300 10-20 RATIO High BUN/CRE 22.3 LAB L501.2200 8.5-10.1 mg/dL CA Normal 9.4 LAB L501.5300 136-145 mmol/L NA Normal 137 LAB L501.5600 3.5-5.1 mmol/L K Normal 4.4 LAB L501.5900 98-107 mmol/L CL Normal 102 LAB L501.6100 21.0-32.0 mmol/L Normal CO2 30.0 LAB L501.6200 5-15 Normal GAP 5 Performed By: #### L500.2500, L500.4100, L501.99936, L501.9310, L501.9520 #### [facility] [address] [place], [address] LIPID PROFILE Collected: 05/02/2017 Status: F Source: [facility] 10:22 AM REPOSITORY TYPE CODE TESTS RESULT OUT OF RANGE REFERENCE UNITS LAB L501.4900 200 mg/dL Normal CHOL 193 Result Comment: <200 mg/dL Desirable 200-240 mg/dL Borderline >240 mg/dL High Risk LAB L501.5000 mg/dL Normal TRIG 132 Result Comment: The drugs N-Acetylcysteine and Metamizole may falsely depress this assay. Serum Triglycerides Reference Interval Normal <150 mg/dL Borderline high 150 - 199 mg/dL High 200 - 499 mg/dL Very High > or = 500 mg/dL LAB L501.6400 mg/dL Normal HDL 61 Result Comment: The drugs N-Acetylcysteine and Metamizole may falsely depress this assay. Reference Range HDL <40 mg/dL Low HDL Cholesterol HDL >or= 60 mg/dL High HDL Cholesterol LAB L501.6500 0-130 mg/dL Normal LDL 106 LAB L501.6600 5-40 mg/dL Normal VLDL 26 Performed By: #### L500.2500, L500.4100, L501.86623, L501.9310, L501.9520 #### [facility] [address] [place], [address] FREE T3 Collected: 05/02/2017 Status: F Source: [facility] 10:22 AM REPOSITORY TYPE CODE TESTS RESULT OUT OF RANGE REFERENCE UNITS LAB L501.09148 2.18-3.98 pg/mL Normal FREE T3 2.7 Performed By: #### L500.2500, L500.4100, L501.66341, L501.9310, L501.9520 #### [facility] [address] [place], [address] T4 TOTAL, THYROXIN Collected: 05/02/2017 Status: F Source: [facility] 10:22 AM REPOSITORY TYPE CODE TESTS RESULT OUT OF RANGE REFERENCE UNITS LAB L501.9310 4.8-13.9 ug/dL T4 Normal THYROXIN 10.5 Performed By: #### L500.2500, L500.4100, L501.41702, L501.9310, L501.9520 #### [facility] [address] [place], [address] THYROID STIM HORMONE Collected: 05/02/2017 Status: F Source: [facility] (TSH) 10:22 AM REPOSITORY TYPE CODE TESTS RESULT OUT OF RANGE REFERENCE UNITS LAB L501.9520 0.358-3.74 uIU/mL Normal TSH 2.29 Performed By: #### L500.2500, L500.4100, L501.96511, L501.9310, L501.9520 #### [facility] [address] [place], [address] ALLERGIES ALLERGIES DATE TYPE / CODE NAME / CODE REACTION SEVERITY SOURCE 03/03/2018 Drug No Known Unknown [facility] Allergy/4160 Allergies/F00 [facility] [address](SNOMED 0934063(RXNOR Repository CT) M) ENCOUNTERS ENCOUNTERS ADMIT/DISCHARGE ACCOUNT ADMITTING ENCOUNTER LOCATION SOURCE NUMBER CLASS 03/03/2018/ [id number] Ambulatory BMSBuilding:B [place] 4 [place].Count includes the [facility] Repository 02/24/2018/ [id number] [place] 5 [facility] ing:ENRoom: Repository AC14 02/19/2018/ [id number] Ambulatory BMSBuilding:B [place] 9 9 MS.Count includes the [facility] Repository 01/31/2018 [id number] Ambulatory [place] 9 [facility] ing:CT Repository 01/24/2018 [id number] [place]ulatory [place] 0 [facility] ing:MFPLAB Repository 01/13/2018 [id number] Ambulatory [place] 7 [facility] ing:MFPLAB Repository 12/12/2017 [id number] Ambulatory [place] 4 [facility] ing:LABSPEC Repository 11/04/2017 [id number] Ambulatory [place] 7 [facility] ing:MFPLAB Repository 05/23/2017 [id number] Ambulatory [place] 1 [facility] ing:OPBI Repository 05/02/2017 [id number] Ambulatory [place] 5 [facility] ing:MFPLAB Repository PAYERS PAYERS ENCOUNTER GUARANTOR PAYER SUBSCRIBER SOURCE 03/03/2018 BRIAN A Primary BRIAN A [place] [id number] Insurance:AMIRAH HARRINGTONDOB: Community CEMETARY [facility] PLAN [id number] Number: Repository [id number]: 330 [id number] [phone] (HP) Date:7577-19-42PY [address] [place] [address]AF: 03/03/2018 Secondary NOT GIVENUNK [place] Insurance:SELF PAY [facility] Number: Effective Repository Date:2018-03-03 02/24/2018 BRIAN A Primary BRIAN A [place] [id number] Insurance:AMIRAH HARRINGTONDOB: [facility] CEMETARY [facility] [id number] Number: Repository [id number]: 330 [id number] [phone] (HP) Date:6346-51-31LU [address] [place] [address]II: 02/24/2018 Secondary NOT GIVENUNK [place] Insurance:SELF PAY [facility] Number: Effective Repository Date:2018-02-19 02/19/2018 BRIAN A Primary BRIAN A [place] [id number] Insurance:AMIRAH HARRINGTONDOB: [facility] [id number] Number: Repository [id number]: 330 [id number] [phone] (HP) Date:4067-54-26OY [facility] [address] [place] [id number]: 02/19/2018 Secondary BRIAN A [place] Insurance:MEDICARE HARRINGTONDOB: Community PART A BPolicy [id number] Hospital Number: Repository [id number] Date:2018-02-05 02/19/2018 Tertiary NOT GIVENUNK [place] Insurance:SELF PAY [facility] Number: Effective Repository Date:2018-02-05 01/31/2018 BRIAN A Primary BRIAN A [place] [id number] Insurance:AMIRAH HARRINGTONDOB: Community CEMETARY [facility] PLAN [id number] Number: Repository [id number]: 330 [id number] [phone] (HP) Date:5996-17-51MW [address] [place] [address]GN: 01/31/2018 Secondary NOT GIVENUNK [place] Insurance:SELF PAY [facility] Number: Effective Repository Date:2018-01-28 01/24/2018 Brian A Primary Brian A [place] [id number] Insurance:AMIRAH HarringtonDOB: Community CEMETARY [facility] PLAN [id number] Number: Repository [id number]: 330 [id number] [phone] (HP) Date:6371-63-25FK [facility] [address] [place] [address]XA: 01/24/2018 Secondary NOT GIVENUNK [place] Insurance:SELF PAY [facility] Number: Effective Repository Date:2018-01-24 01/13/2018 Brian A Primary Brian A [place] [id number] Insurance:AMIRAH HarringtonDOB: Community CEMETARY [facility] PLAN [id number] Number: Repository [id number]: 330 [id number] [phone] (HP) Date:7751-82-93JO [facility] [place] [address]TK: 01/13/2018 Secondary NOT GIVENUNK [place] Insurance:SELF PAY [facility] Number: Effective Repository Date:2018-01-13 12/12/2017 Brian A Primary Brian A [place] [id number] Insurance:AMIRAH HarringtonDOB: [facility] [id number] Number: Repository [id number]: 330 [id number] [phone] (HP) Date:9037-79-89WO [address] [place] [address]RZ: 12/12/2017 Secondary NOT GIVENUNK [place] Insurance:SELF PAY [facility] Number: Effective Repository Date:2017-12-12 11/04/2017 Brian A Primary Brian A [place] [id number] Insurance:AMIRAH HarringtonDOB: [facility] [id number] Number: Repository [address]Sal: 330 [id number] [phone] (HP) Date:0972-31-33WM [address] [address]PW: 11/04/2017 Secondary NOT GIVENUNK [place] Insurance:SELF PAY [facility] Number: Effective Repository Date:2017-11-04 05/23/2017 Brian A Primary Brian A [place] [id number] Insurance:AMIRAH HarringtonDOB: [facility] [id number] Number: Repository [address]Ftf: 330 [id number] [phone] (HP) Date:3955-29-01SB [address] [place] [address]AD: 05/23/2017 Secondary NOT GIVENUNK [place] Insurance:SELF PAY [facility] Number: Effective Repository Date:2017-05-20 05/02/2017 Brian A Primary Brian A [place] HarringtonPo Box Insurance:AMIRAH HarringtonDOB: [address] [id number] Hospital [address]Lzr: 330 HMOPolicy Number: Repository [phone] HP [id number] Date:6791-48-55UQ [address], [place] [address]VD: 05/02/2017 Secondary NOT GIVENUNK [place] Insurance:SELF PAY [facility]: Effective Repository Date:2017-05-02
== END ==
PROVIDERS: Family Provider Family Medicine; PCP Family Medicine; Visit Provider Family Medicine
DX: K92.2 Gastrointestinal hemorrhage, unspecified (principal); R19.7 Diarrhea, unspecified
CPT/HCPCS: 36415; 80053; 82728; 84443; 85025; 85652; 86140

== ENCOUNTER → 2018-01-31 07:06 | Outpatient (CLI) | payer MEDICARE, SELFPAY ==
--- NOTE | 2018-01-31 07:14 | CT_ITS ---
STUDY: CT ABDOMEN AND PELVIS WITHOUT CONTRAST REASON FOR EXAM: Female, 77 years old. Persistent diarrhea RADIATION DOSAGE (If Supplied By Facility): CTDIvol = ( 8.96 ) mGy, DLP = ( 402.80 ) mGycm TECHNIQUE: Transaxial images were obtained from the dome of the diaphragm to the symphysis pubis without oral contrast, and without intravenous contrast. Sagittal and coronal images were reconstructed. Individualized dose optimization techniques were used for this CT. COMPARISON: None. FINDINGS: The visualized lung bases are unremarkable. The visualized portions of the heart are within normal limits. Normal liver. Normal gallbladder and extrahepatic biliary system. Normal spleen. Normal pancreas. Normal bilateral adrenal glands. There are NO kidney stones or ureteral stones. There is NO hydronephrosis. There are bilateral kidney cysts. There are 2 discrete dense mass is in the LEFT kidney which could be hemorrhagic cysts. Normal visualized stomach. Normal small intestine. There is mild thickening of the LEFT colon suggesting mild colitis. There is NO diverticulitis, obstruction or mass. The appendix is visualized and appears normal. Normal abdominal aorta. Normal inferior vena cava. Normal retroperitoneum. Normal urinary bladder. There is atrophy of the uterus. There is NO ascites or free air, abscess or adenopathy. Normal abdominal wall. Normal osseous structures. CT/Abdomen/Pelvis without Cont IMPRESSION: There are NO kidney stones or ureteral stones. There is NO hydronephrosis. There are bilateral kidney cysts. There are 2 discrete dense mass is in the LEFT kidney which could be hemorrhagic cysts. There is mild thickening of the LEFT colon suggesting mild colitis. There is NO diverticulitis, obstruction or mass. The appendix is visualized and appears normal. There is NO ascites or free air, abscess or adenopathy. Electronically Signed: Mitchel Scott MD at 7:47 EST , Service support ,
== END ==
PROVIDERS: Family Provider Family Medicine; PCP Family Medicine; Referring Provider Family Medicine; Visit Provider Family Medicine
DX: R19.7 Diarrhea, unspecified (principal)
CPT/HCPCS: 74176

== ENCOUNTER 2018-02-24 07:06 | Day surgery (SDC) | payer MEDICARE, SELFPAY ==
[2018-02-19 15:01] VITALS: BMI 25.8
[2018-02-24 07:56] VITALS: BP 187/72; PULSE 67; RESP 16; TEMP 36.8; O2SAT 100; BMI 25.0
--- NOTE | 2018-02-24 08:30 | IMM_PTH ---
PATIENT: BRIAN KELLER LOC: EN U#:[id number] AGE/SX: 77/F ROOM: RE02/24/[address]: Dr. Dereck Dailey MD : 1940 BED: DIS: 02/24/2018 SPEC #: [id number] RECD: 02/24/18 10:25 STATUS: [facility] REQ #: [id number] SWAPNA: 02/24/18 08:[address]: Dereck Dailey DEPT: IMMUNOHISTOCHEMISTRY RECD BY: Jennifer Mera ENTERED: 02/24/18 10:26 SP TYPE: IMMUNO OTHR DR: Dr. Ángel Rivera MD Tissues: B - Stomach, NOS Procedures: H Pylori (initial) PHYSICIAN & INSTITUTION [place] [address] SPECIMEN INFORMATION: Tissue Source: B - Antrum biopsy Clinical Info: Heme-positive stool Specimen Number: [id number] CPT code: 13679 METHODOLOGY: Deparaffinized sections of prefer/formalin-fixed tissue or PAP/DQ stained slides are incubated with monoclonal/polyclonal antibodies/oligonucleotide probes. Localization is made via biotin free immunoperoxidase method. Appropriate controls are performed and reacted as expected. Results on target cell population are indicated in the following table: RESULTS: ANTIBODY / CLONE RESULT Block B H Pylori (polyclonal) negative These tests were developed and their performance characteristics determined by [facility]. They may not have been cleared or approved by the U.S. Food and Drug Administration. The FDA has determined that such clearance or approval is not necessary. INTERPRETATION: B. Antrum, biopsy: Negative for Helicobacter pylori organisms. AM:luis 02/25/18
--- NOTE | 2018-02-24 08:30 | EGD_PTH ---
PATIENT: BRIAN KELLER LOC: EN U#:[id number] AGE/SX: 77/F ROOM: RE02/24/[address]: Dr. Dereck Dailey MD : 1940 BED: DIS: 02/24/2018 SPEC #: [id number] RECD: 02/24/18 09:08 STATUS: [facility] ROBERTH #: [id number] SWAPNA: 02/24/18 08:[address]: Dereck Dailey DEPT: SURGICAL PATHOLOGY RECD BY: Alonzo Castro ENTERED: 02/24/18 09:21 SP TYPE: EGD BIOPSY OTHR DR: Dr. Ángel Rivera MD Tissues: A - Small intestine biopsy B - Gastric mucous membrane C - COLON BIOPSY Procedures: Trichrome (control) Special Stain Group II Surgery Specimen Level IV HEADER OPERATION: Colonoscopy, EGD ([facility] [place]) PRE-OP DIAGNOSIS: Heme-positive stool TISSUE SUBMITTED: A - Biopsy of small intestine, B - Antrum biopsy for H. pylori and path, C - Random colon biopsies MICROSCOPIC DIAGNOSIS A. Small bowel, biopsy: No significant pathologic change. No evidence of enteritis. B. Gastric antrum, biopsy: Mild chronic gastritis. C. Colon, random biopsy: Rare cryptitis. See comment. AM:luis 02/25/18 COMMENT B. The results of immunohistochemistry for Helicobacter pylori will be reported separately ([id number]). C. Rare neutrophils are seen in glandular epithelium. The mucosa contains increased number of eosinophils. The significance of this is unclear. Clinical correlation is suggested. Trichrome stain with matched control does not reveal a thickened basal plate. MICROSCOPIC DESCRIPTION Slides are reviewed. GROSS DESCRIPTION A - Received in fixative is one container labeled with the patient's name and designated biopsy of small intestine. The specimen consists of multiple irregular fragments of light novoa soft tissue that in aggregate measure 0.3 x 0.3 x 0.1 cm. The specimen is totally submitted in one cassette. B - Received in fixative is one container labeled with the patient's name and designated antrum biopsy. The specimen consists of one irregular fragment of light novoa soft tissue that measures 0.4 x 0.2 x 0.1 cm. The specimen is totally submitted in one cassette. C - Received in fixative is one container labeled with the patient's name and designated random colon biopsy. The specimen consists of multiple irregular fragments of light novoa soft tissue that in aggregate measure 2.5 x 0.5 x 0.1 cm. The specimen is totally submitted in one cassette. / SJ:rg 02/24/18 TC:5 CPT: 27084 x3, 83017
[2018-02-24 09:00] VITALS: BP 187/72; BP 96/68; PULSE 64; RESP 18; TEMP 5372.7; TEMP 9703; O2SAT 99
--- NOTE | 2018-02-24 09:02 | OP.ENDO_ITS ---
Patient Name: Miracle Ferro Procedure Date: 02/24/2018 8:30 AM Date of : 1940 Age: 77 Procedure: Upper GI endoscopy Indications: Heme positive stool, Abnormal CT of the GI tract Providers: Dereck Dailey MD Referring MD: Dereck Dailey MD Medicines: See the Anesthesia note for documentation of the administered medications Patient Profile: This is a 77 year old female. Refer to note in patient chart for documentation of history and physical. Complications: No immediate complications. Procedure: Pre-Anesthesia Assessment: - Prior to the procedure, a History and Physical was performed, and patient medications and allergies were reviewed. The patient's tolerance of previous anesthesia was also reviewed. The risks and benefits of the procedure and the sedation options and risks were discussed with the patient. All questions were answered, and informed consent was obtained. Prior Anticoagulants: The patient has taken no previous anticoagulant or antiplatelet agents. ASA Grade Assessment: II - A patient with mild systemic disease. After reviewing the risks and benefits, the patient was deemed in satisfactory condition to undergo the procedure. After obtaining informed consent, the endoscope was passed under direct vision. Throughout the procedure, the patient's blood pressure, pulse, and oxygen saturations were monitored continuously. The gastroscope was introduced through the mouth, and advanced to the second part of duodenum. The upper GI endoscopy was accomplished without difficulty. The patient tolerated the procedure well. Scope In: Scope Out: 8:43:51 AM Findings: The Z-line was regular and was found 38 cm from the incisors. The examined esophagus was normal. Localized minimal inflammation characterized by erythema was found in the prepyloric region of the stomach. Biopsies were taken with a cold forceps for Helicobacter pylori testing. The examined duodenum was normal. Biopsies for histology were taken with a cold forceps for evaluation of celiac disease. Impression: - Z-line regular, 38 cm from the incisors. - Normal esophagus. - Gastritis. Biopsied. - Normal examined duodenum. Biopsied. Recommendation: - Await pathology results. - Repeat upper endoscopy (date not yet determined) to assess disease activity. - Return to my office in 1 week. - Continue present medications. Procedure Code(s): --- Professional --- 04756, Esophagogastroduodenoscopy, flexible, transoral; with biopsy, single or multiple Diagnosis Code(s): --- Professional --- K29.70, Gastritis, unspecified, without bleeding R19.5, Other fecal abnormalities R93.3, Abnormal findings on diagnostic imaging of other parts of digestive tract CPT copyright 2017 [employer]. All rights reserved. The codes documented in this report are preliminary and upon cpr instructor review may be revised to meet current compliance requirements. MD Dereck Joseph MD 02/24/2018 9:02:20 AM This report has been signed electronically. Number of Addenda: 0 Note Initiated On: 02/24/2018 8:30 AM
[2018-02-24 09:05] VITALS: BP 118/61; BP 187/72; PULSE 79; RESP 18; O2SAT 99
--- NOTE | 2018-02-24 09:06 | OP.ENDO_ITS ---
Patient Name: Miracle Ferro Procedure Date: 02/24/2018 8:45 AM Date of : 1940 Age: 77 Procedure: Colonoscopy Indications: Clinically significant diarrhea of unexplained origin, Heme positive stool, Abnormal CT of the GI tract Providers: Dereck Dailey MD Referring MD: Dereck Dailey MD Medicines: See the Anesthesia note for documentation of the administered medications Patient Profile: This is a 77 year old female. Refer to note in patient chart for documentation of history and physical. Last Colonoscopy: more than 10 years ago. Complications: No immediate complications. Procedure: Pre-Anesthesia Assessment: - Prior to the procedure, a History and Physical was performed, and patient medications and allergies were reviewed. The patient's tolerance of previous anesthesia was also reviewed. The risks and benefits of the procedure and the sedation options and risks were discussed with the patient. All questions were answered, and informed consent was obtained. Prior Anticoagulants: The patient has taken no previous anticoagulant or antiplatelet agents. ASA Grade Assessment: II - A patient with mild systemic disease. After reviewing the risks and benefits, the patient was deemed in satisfactory condition to undergo the procedure. - Prior to the procedure, a History and Physical was performed, and patient medications and allergies were reviewed. The patient's tolerance of previous anesthesia was also reviewed. The risks and benefits of the procedure and the sedation options and risks were discussed with the patient. All questions were answered, and informed consent was obtained. Prior Anticoagulants: The patient has taken no previous anticoagulant or antiplatelet agents. ASA Grade Assessment: II - A patient with mild systemic disease. After reviewing the risks and benefits, the patient was deemed in satisfactory condition to undergo the procedure. After I obtained informed consent, the scope was passed under direct vision. Throughout the procedure, the patient's blood pressure, pulse, and oxygen saturations were monitored continuously. The Colonoscope was introduced through the anus and advanced to the cecum, identified by appendiceal orifice and ileocecal valve. The colonoscopy was performed without difficulty. The patient tolerated the procedure well. The quality of the bowel preparation was good. Scope In: 8:46:10 AM Scope Withdrawal Time 0 hours 6 minutes 49 seconds Scope Out: 8:57:23 AM Total Procedure Duration Time 0 hours 11 minutes 13 seconds Findings: Non-bleeding internal hemorrhoids were found during retroflexion. The hemorrhoids were mild and small. A few small-mouthed diverticula were found in the sigmoid colon and descending colon. The colon (entire examined portion) appeared normal. Biopsies for histology were taken with a cold forceps from the entire colon for evaluation of microscopic colitis. The exam was otherwise without abnormality. The exam was otherwise without abnormality. Impression: - Non-bleeding internal hemorrhoids. - Diverticulosis in the sigmoid colon and in the descending colon. - The entire examined colon is normal. Biopsied. - The examination was otherwise normal. Recommendation: - Discharge patient to home. - Resume previous diet. - Continue present medications. - Await pathology results. - Repeat colonoscopy in 5 years for surveillance. - Return to my office in 1 week. Procedure Code(s): --- Professional --- 39196, Colonoscopy, flexible; with biopsy, single or multiple Diagnosis Code(s): --- Professional --- K64.8, Other hemorrhoids R19.7, Diarrhea, unspecified R19.5, Other fecal abnormalities K57.30, Diverticulosis of large intestine without perforation or abscess without bleeding R93.3, Abnormal findings on diagnostic imaging of other parts of digestive tract CPT copyright 2017 [employer] [employer]. All rights reserved. The codes documented in this report are preliminary and upon label coder review may be revised to meet current compliance requirements. MD Dereck Joseph MD 02/24/2018 9:05:41 AM This report has been signed electronically. Number of Addenda: 0 Note Initiated On: 02/24/2018 8:45 AM
[2018-02-24 09:10] VITALS: BP 102/75; BP 187/72; PULSE 62; RESP 18; O2SAT 99
[2018-02-24 09:16] VITALS: BP 125/64; BP 187/72; PULSE 73; RESP 18; TEMP 36.1; O2SAT 94
[2018-02-24 09:53] VITALS: BP 187/72
== END 2018-02-24 09:53 | disposition home or self-care (01) ==
LOC: EN 07:07 → AC 07:09
PROVIDERS: Family Provider Family Medicine; PCP Family Medicine; Referring Provider Surgery; Visit Provider Surgery
PROC: 0DJD8ZZ Inspection of Lower Intestinal Tract, Via Natural or Artificial Opening Endoscopic (ICD-10-PCS; CPT 45378; principal; 2018-02-24 08:25)
DX: K29.50 Unspecified chronic gastritis without bleeding (principal); K57.30 Diverticulosis of large intestine without perforation or abscess without bleeding; K64.8 Other hemorrhoids; K62.89 Other specified diseases of anus and rectum; I10 Essential (primary) hypertension; M06.9 Rheumatoid arthritis, unspecified; E07.9 Disorder of thyroid, unspecified; Z79.4 Long term (current) use of insulin; Z79.899 Other long term (current) drug therapy
CPT/HCPCS: 43239; 45380; 88305; 88313; 88342; J7120; J1610

== ENCOUNTER → 2018-06-24 10:17 | Outpatient (CLI) | payer MEDICARE, SELFPAY ==
--- NOTE | 2018-06-24 10:20 | BI_ITS ---
MAMMOGRAPHY - BILATERAL SCREENING REASON FOR EXAM: Female, 78 years old. Routine annual screening examination. PERTINENT HISTORY: Mother with breast cancer. TECHNIQUE: Digital bilateral breast eze (3D mammographic acquisition) in the CC and MLO projections. 2-D mediolateral oblique (MLO) and craniocaudad (CC) views of both breasts were obtained. CAD: Full Field Digital Mammography with Computer Added Detection was performed. COMPARISON: Comparison is made with prior study dated May 23, 2017 and March 19, 2016. FINDINGS: Breast Composition: The breasts are heterogeneously dense, which may obscure small masses. There are no dominant masses or suspicious calcifications. No other significant abnormalities are identified. There has been no significant change since the prior study. BI/SCREENING MAMM (CAD), BILAT IMPRESSION: Stable bilateral screening mammogram. Yearly follow-up mammogram recommended. (A) ASSESSMENT CATEGORY: BIRADS Category 1: Negative. A letter regarding these results will be sent to the patient by the facility within 30 days. Approximately 10% of breast cancers are not detected by mammography. A normal mammogram should not delay biopsy of a clinically suspicious abnormality. [id number] Electronically Signed: Graham Tabor, at 12:41 EDT , Service support ,
--- NOTE | 2018-06-24 10:31 | BD_ITS ---
STUDY: DUAL ENERGY X-RAY ABSORPTIOMETRY / DXA REASON FOR EXAM: Female, 78 years old. The patient is postmenopausal. Loss of height. TECHNIQUE: Bone Mineral Density (BMD) measurements of lumbar spine and bilateral hips were obtained. COMPARISON: Comparison is made with prior study dated February 13, 2012. FINDINGS: Lumbar Spine (L1-L4): g/cm2 (1.037) / T-score (-1.1) / Z-score (0.7) Findings are suggestive of osteopenia with a low fracture risk. Left Femur Total: g/cm2 (0.852) / T-score (-1.2) / Z-score (0.8) Left Femoral Neck: g/cm2 (0.867) / T-score (-1.2) / Z-score (0.9) Right Femur Total: g/cm2 (0.821) / T-score (-1.5) / Z-score (0.5) Right Femoral Neck: g/cm2 (0.819) / T-score (-1.6) / Z-score (0.6) The T-Scores on the most recent prior examination were: Lumbar Spine (L1-L4): There has been worsening of bone density since the previous examination. Left Femur Total: which represents a worsening of 2.9%. Right Femur Total: which represents a worsening of 8.3%. BD/Dexa Bone Density Study IMPRESSION: The patient is considered osteopenic as outlined below according to World Lemuel Organization (WHO) criteria with a moderate fracture risk. There has been worsening of bone density since the previous examination. Reference Information: The T-score is the number of standard deviations above or below the standard which is normal for young adults at their peak bone mineral density. The World Health Organization (WHO) interprets the T-scores as follows: Above -1 Normal bone density Between -1 and -2.5 Osteopenia Equal to / or below -2.5 Osteoporosis As a practical clinical guideline, osteopenia may be graded as follows: Mild -1 through -1.5 Moderate -1.6 through -2.0 Severe -2.1 through -2.4 The Z-score is the number of standard deviations above or below age-matched controls. A Z-score of less than -1.5 would be considered abnormal. References: 1. NIH Osteoporosis and Related Bone Diseases http://www.osteo.org 2. International Society for Clinical Densitometry http://www.iscd.org 3. National Osteoporosis Foundation http://www.nof.org Electronically Signed: Graahm Tabor, at 14:20 EDT , Service support ,
== END ==
PROVIDERS: Family Provider Family Medicine; PCP Family Medicine; Referring Provider Family Medicine; Visit Provider Family Medicine
DX: Z00.00 Encounter for general adult medical examination without abnormal findings (principal); Z78.0 Asymptomatic menopausal state; Z12.31 Encounter for screening mammogram for malignant neoplasm of breast
CPT/HCPCS: 77063; 77067; 77080

== ENCOUNTER → 2018-11-04 | Outpatient (CLI) | payer MEDICARE, SELFPAY ==
[2018-11-04 10:41] LABS: Anion Gap 7 (5-15); BUN 19 mg/dL (7-18); BUN/Creat Ratio 24.3 RATIO (10-20); Calcium,Total 9.3 mg/dL (8.5-10.1); Chloride 103 mmol/L (98-107); Cholesterol 216 mg/dL (200); Creatinine, Serum 0.78 mg/dL (0.55-1.02); EST Glomerular Filtration Rate 75 mL/min (>60); Est Glom Filt Rate - Afr Amer 91 mL/min (>60); Free T3 2.5 pg/mL (2.18-3.98); Glucose 82 mg/dL (74-106); High Density Lipoprotein 69 mg/dL; Potassium 4.2 mmol/L (3.5-5.1); Sodium Level 140 mmol/L (136-145); T4 Total, Thyroxin 11.3 ug/dL (4.8-13.9); Thyroid Stim Hormone (TSH) 1.82 uIU/mL (0.358-3.74); Triglycerides 168 mg/dL; Very Low Density Lipoprotein 34 mg/dL (5-40)
== END | disposition home or self-care (01) ==
LOC: MFPLAB 09:17
PROVIDERS: Family Provider Family Medicine; PCP Family Medicine; Referring Provider Family Medicine; Visit Provider Family Medicine
DX: E03.9 Hypothyroidism, unspecified (principal); I10 Essential (primary) hypertension
CPT/HCPCS: 36415; 80048; 80061; 84436; 84443; 84481

== ENCOUNTER → 2019-05-06 10:10 | Outpatient (CLI) | payer MEDICARE, SELFPAY ==
[2019-05-06 12:31] LABS: ALB/GLOB Ratio 1.2 RATIO (0.9-2.4); AST(SGOT) 20 U/L (15-37); Alanine Aminotransfer ALT/SGPT 27 U/L (13-56); Alkaline Phosphatase 61 U/L (45-117); Anion Gap 6 (5-15); BUN 19 mg/dL (7-18); BUN/Creat Ratio 25.4 RATIO (10-20); Calcium,Total 9.6 mg/dL (8.5-10.1); Chloride 100 mmol/L (98-107); Cholesterol 222 mg/dL (200); Creatinine, Serum 0.75 mg/dL (0.55-1.02); EST Glomerular Filtration Rate 79 mL/min (>60); Est Glom Filt Rate - Afr Amer 96 mL/min (>60); Globulin 3.2 g/dL (2.2-4.2); Glucose 83 mg/dL (74-106); High Density Lipoprotein 64 mg/dL; Potassium 4.3 mmol/L (3.5-5.1); Protein, Total 7.2 g/dL (6.4-8.2); Sodium Level 136 mmol/L (136-145); T4 Total, Thyroxin 11.7 ug/dL (4.8-13.9); Thyroid Stim Hormone (TSH) 0.68 uIU/mL (0.358-3.74); Triglycerides 204 mg/dL; Very Low Density Lipoprotein 41 mg/dL (5-40)
== END ==
PROVIDERS: PCP Family Medicine; Referring Provider Family Medicine; Visit Provider Family Medicine
DX: I10 Essential (primary) hypertension (principal); E03.9 Hypothyroidism, unspecified
CPT/HCPCS: 36415; 80053; 80061; 84436; 84443; 84481

== ENCOUNTER → 2019-08-05 | Outpatient (CLI) | payer MEDICARE, SELFPAY ==
[2019-08-05 15:45] LABS: Absolute Lymphocyte Count 1.34 X10^3/uL (0.83-4.51); Basophil# 0.03 X10^3/uL; Basophil% 0.4 % (0-1); Eosinophil# 0.05 X10^3/uL; Eosinophils% 0.7 % (0-5); Hematocrit 39.6 % (37-47); Lymphocyte # 1.34 X10^3/ul (4.0); Lymphocyte % 19.1 % (19-41); Mean Corp Hgb Conc 32.8 g/dL (32-36); Mean Corpuscular Hgb 30.2 pg (27.0-32.0); Mean Corpuscular Volume 92.1 fL (81-99); Mean Platelet Vol. 9.6 fl (6.2-12.0); Monocyte# 0.55 X10^3/uL; Monocyte% 7.8 % (0-10); NRBC Flagged by Analyzer 0 % (0-5); Neutrophil # 5.01 X10^3/uL (2.7-7.7); Neutrophil % 71.6 % (47-70); Platelet Count 252 K/mm3 (150-450); RBC Distribution Width CV 12.6 % (11.6-14.6); RBC Distribution Width SD 42.5 fl (35.1-43.9)
[2019-08-05 16:30] LABS: ALB/GLOB Ratio 1.4 RATIO (0.9-2.4); AST(SGOT) 24 U/L (15-37); Alanine Aminotransfer ALT/SGPT 34 U/L (13-56); Albumin, Serum 4.3 g/dL (3.2-5.0); Alkaline Phosphatase 59 U/L (45-117); Anion Gap 7 (5-15); BUN 11 mg/dL (7-18); BUN/Creat Ratio 13.6 RATIO (10-20); CRP < 2.90 mg/L (0.0-3.0); Calcium,Total 9.6 mg/dL (8.5-10.1); Chloride 98 mmol/L (98-107); Creatinine, Serum 0.81 mg/dL (0.55-1.02); EST Glomerular Filtration Rate 72 mL/min (>60); Est Glom Filt Rate - Afr Amer 88 mL/min (>60); Glucose 89 mg/dL (74-106); Potassium 3.5 mmol/L (3.5-5.1); Protein, Total 7.3 g/dL (6.4-8.2); Sodium Level 133 mmol/L (136-145)
[2019-08-07 19:04] LABS: Haptoglobin 144 mg/dL (41-333); SAR-COV-2 IGA ANTIBODY Negative (Negative); SAR-COV-2 IGG ANTIBODY Negative (Negative)
== END | disposition home or self-care (01) ==
PROVIDERS: PCP Family Medicine; Referring Provider Family Medicine; Visit Provider Family Medicine
DX: R19.7 Diarrhea, unspecified (principal)
CPT/HCPCS: 80053; 83010; 85025; 86140; 86769; G2023

== ENCOUNTER → 2019-08-06 12:21 | Outpatient (CLI) | payer MEDICARE, SELFPAY | PROVIDERS: PCP Family Medicine; Referring Provider Family Medicine; Visit Provider Family Medicine | DX: R19.7 Diarrhea, unspecified (principal) | CPT/HCPCS: 83630; 87493; 87506 ==

== ENCOUNTER → 2019-09-25 13:51 | Outpatient (CLI) | payer MEDICARE, SELFPAY ==
--- NOTE | 2019-09-25 13:53 | BI_ITS ---
MAMMOGRAPHY - BILATERAL SCREENING REASON FOR EXAM: Female, 79 years old. Routine annual screening examination. PERTINENT HISTORY: Mother with breast cancer. TECHNIQUE: Digital bilateral breast lacie (3D mammographic acquisition) in the CC and MLO projections. 2-D mediolateral oblique (MLO) and craniocaudad (CC) views of both breasts were obtained. CAD: Full Field Digital Mammography with Computer Added Detection was performed. COMPARISON: Comparison is made with prior study dated 06/24/2018 and 05/23/2017. FINDINGS: Breast Composition: The breasts are heterogeneously dense, which may obscure small masses. There are no dominant masses or suspicious calcifications. No other significant abnormalities are identified. There has been no significant change since the prior study. BI/SCREEN MAMM (CAD) W/LACIE BILAT IMPRESSION: Stable bilateral screening mammogram. Yearly follow-up mammogram recommended. (A) ASSESSMENT CATEGORY: BIRADS Category 1: Negative. A letter regarding these results will be sent to the patient by the facility within 30 days. Approximately 10% of breast cancers are not detected by mammography. A normal mammogram should not delay biopsy of a clinically suspicious abnormality. [id number] Electronically Signed: Graham Tabor, at 14:41 EDT , Service support ,
== END ==
PROVIDERS: PCP Family Medicine; Referring Provider Family Medicine; Visit Provider Family Medicine
DX: Z12.31 Encounter for screening mammogram for malignant neoplasm of breast (principal)
CPT/HCPCS: 77063; 77067

== ENCOUNTER → 2020-01-14 15:48 | Outpatient (CLI) | payer MEDICARE, SELFPAY ==
[2019-10-28 13:24] VITALS: BMI 25.0
[2020-01-14 18:40] LABS: ALB/GLOB Ratio 1.4 RATIO (0.9-2.4); AST(SGOT) 20 U/L (15-37); Alanine Aminotransfer ALT/SGPT 28 U/L (13-56); Albumin, Serum 4.2 g/dL (3.2-5.0); Alkaline Phosphatase 72 U/L (45-117); Anion Gap 7 (5-15); BUN 22 mg/dL (7-18); BUN/Creat Ratio 26.3 RATIO (10-20); Calcium,Total 9.8 mg/dL (8.5-10.1); Chloride 101 mmol/L (98-107); Cholesterol 230 mg/dL (200); Creatinine, Serum 0.84 mg/dL (0.55-1.02); EST Glomerular Filtration Rate 69 mL/min (>60); Est Glom Filt Rate - Afr Amer 84 mL/min (>60); Free T3 2.4 pg/mL (2.18-3.98); Globulin 3.1 g/dL (2.2-4.2); Glucose 123 mg/dL (74-106); High Density Lipoprotein 68 mg/dL; Potassium 3.8 mmol/L (3.5-5.1); Protein, Total 7.3 g/dL (6.4-8.2); Sodium Level 135 mmol/L (136-145); T4 Free Direct 1.32 ng/dL (0.76-1.46); Thyroid Stim Hormone (TSH) 2.03 uIU/mL (0.358-3.74); Triglycerides 211 mg/dL; Very Low Density Lipoprotein 42 mg/dL (5-40)
== END ==
PROVIDERS: PCP Family Medicine; Visit Provider Family Medicine
DX: E03.9 Hypothyroidism, unspecified (principal); I10 Essential (primary) hypertension
CPT/HCPCS: 36415; 80053; 80061; 84439; 84443; 84481

== ENCOUNTER → 2020-09-14 09:59 | Outpatient (CLI) | payer MEDICARE, SELFPAY ==
[2019-10-28 13:24] VITALS: BMI 25.0
[2020-09-14 12:27] LABS: Anion Gap 8 (5-15); BUN 22 mg/dL (7-18); BUN/Creat Ratio 29.5 RATIO (10-20); Calcium,Total 9.9 mg/dL (8.5-10.1); Chloride 101 mmol/L (98-107); Cholesterol 226 mg/dL (200); Creatinine, Serum 0.75 mg/dL (0.55-1.02); EST Glomerular Filtration Rate 79 mL/min (>60); Est Glom Filt Rate - Afr Amer 96 mL/min (>60); Free T3 2.6 pg/mL (2.18-3.98); Glucose 80 mg/dL (74-106); High Density Lipoprotein 66 mg/dL; Potassium 4.2 mmol/L (3.5-5.1); Sodium Level 135 mmol/L (136-145); T4 Free Direct 1.17 ng/dL (0.76-1.46); Thyroid Stim Hormone (TSH) 1.44 uIU/mL (0.358-3.74); Triglycerides 179 mg/dL; Very Low Density Lipoprotein 36 mg/dL (5-40)
== END ==
PROVIDERS: PCP Family Medicine; Referring Provider Family Medicine; Visit Provider Family Medicine
DX: E03.9 Hypothyroidism, unspecified (principal); I10 Essential (primary) hypertension
CPT/HCPCS: 36415; 80048; 80061; 84439; 84443; 84481

== ENCOUNTER 2021-03-22 11:37 | Outpatient (CLI) | payer MEDICARE, SELFPAY ==
[2021-03-22 15:48] LABS: Free T3 2.9 pg/mL (2.18-3.98); T4 Free Direct 1.34 ng/dL (0.76-1.46); Thyroid Stim Hormone (TSH) 1.82 uIU/mL (0.358-3.74)
== END 2021-03-22 23:59 | disposition home or self-care (01) ==
LOC: MFPLAB 11:39
PROVIDERS: PCP Family Medicine; Referring Provider Family Medicine; Visit Provider Family Medicine
DX: E03.9 Hypothyroidism, unspecified (principal)
CPT/HCPCS: 36415; 84439; 84443; 84481

== ENCOUNTER → 2021-09-13 | Outpatient (CLI) | payer MEDICARE, SELFPAY ==
[2021-09-13 15:18] LABS: Anion Gap 6 (5-15); BUN 18 mg/dL (7-18); BUN/Creat Ratio 20.4 RATIO (10-20); Calcium,Total 9.9 mg/dL (8.5-10.1); Chloride 102 mmol/L (98-107); Cholesterol 217 mg/dL (200); Creatinine, Serum 0.88 mg/dL (0.55-1.02); EST Glomerular Filtration Rate 65 mL/min (>60); Est Glom Filt Rate - Afr Amer 78 mL/min (>60); Free T3 2.6 pg/mL (2.18-3.98); Glucose 87 mg/dL (74-106); High Density Lipoprotein 62 mg/dL; Sodium Level 134 mmol/L (136-145); T4 Free Direct 1.27 ng/dL (0.76-1.46); Thyroid Stim Hormone (TSH) 1.39 uIU/mL (0.358-3.74); Triglycerides 155 mg/dL; Very Low Density Lipoprotein 31 mg/dL (5-40)
== END | disposition home or self-care (01) ==
LOC: MTLAB 11:43
PROVIDERS: PCP Family Medicine; Referring Provider Family Medicine; Visit Provider Family Medicine
DX: I10 Essential (primary) hypertension (principal); E03.9 Hypothyroidism, unspecified
CPT/HCPCS: 36415; 80048; 80061; 84439; 84443; 84481

== ENCOUNTER → 2022-03-21 | Outpatient (CLI) | payer MEDICARE, SELFPAY ==
[2022-03-21 15:38] LABS: Anion Gap 7 (5-15); BUN 19 mg/dL (7-18); BUN/Creat Ratio 23.5 RATIO (10-20); Calcium,Total 9.9 mg/dL (8.5-10.1); Chloride 101 mmol/L (98-107); Cholesterol 214 mg/dL (200); Creatinine, Serum 0.81 mg/dL (0.55-1.02); EST Glomerular Filtration Rate 72 mL/min (>60); Est Glom Filt Rate - Afr Amer 87 mL/min (>60); Free T3 2.3 pg/mL (2.18-3.98); Glucose 93 mg/dL (74-106); High Density Lipoprotein 72 mg/dL; Potassium 4.2 mmol/L (3.5-5.1); Sodium Level 136 mmol/L (136-145); T4 Free Direct 1.45 ng/dL (0.76-1.46); Thyroid Stim Hormone (TSH) 1.49 uIU/mL (0.358-3.74); Triglycerides 133 mg/dL; Very Low Density Lipoprotein 27 mg/dL (5-40)
== END | disposition home or self-care (01) ==
PROVIDERS: PCP Family Medicine; Referring Provider Family Medicine; Visit Provider Family Medicine
DX: E03.9 Hypothyroidism, unspecified (principal); I10 Essential (primary) hypertension
CPT/HCPCS: 36415; 80048; 80061; 84439; 84443; 84481

== ENCOUNTER → 2022-09-21 | Outpatient (CLI) | payer MEDICARE, SELFPAY ==
[2022-09-21 16:01] LABS: Anion Gap 3 (5-15); BUN 22 mg/dL (7-18); BUN/Creat Ratio 26.3 RATIO (10-20); Calcium,Total 9.7 mg/dL (8.5-10.1); Chloride 105 mmol/L (98-107); Cholesterol 224 mg/dL (200); Creatinine, Serum 0.84 mg/dL (0.55-1.02); EST Glomerular Filtration Rate 69 mL/min (>60); Est Glom Filt Rate - Afr Amer 84 mL/min (>60); Free T3 2.6 pg/mL (2.18-3.98); Glucose 87 mg/dL (74-106); High Density Lipoprotein 67 mg/dL; Potassium 4.1 mmol/L (3.5-5.1); Sodium Level 137 mmol/L (136-145); Thyroid Stim Hormone (TSH) 1.69 uIU/mL (0.358-3.74); Triglycerides 182 mg/dL; Very Low Density Lipoprotein 36 mg/dL (5-40)
== END | disposition home or self-care (01) ==
LOC: MFPLAB 11:21
PROVIDERS: PCP Family Medicine; Visit Provider Family Medicine
DX: I10 Essential (primary) hypertension (principal); E03.9 Hypothyroidism, unspecified
CPT/HCPCS: 36415; 80048; 80061; 84439; 84443; 84481

== ENCOUNTER → 2023-02-05 | Outpatient (CLI) | payer MEDICARE, SELFPAY ==
[2023-02-05 17:39] LABS: Hematocrit 41.3 % (37-47); Hemoglobin 13.2 g/dL (12.0-15.0); Mean Corpuscular Hgb 29.2 pg (27.0-32.0); Mean Corpuscular Volume 91.4 fL (81-99); Mean Platelet Vol. 9.6 fl (6.2-12.0); Platelet Count 308 K/mm3 (150-450); RBC Distribution Width CV 12.9 % (11.6-14.6); RBC Distribution Width SD 43.2 fl (35.1-43.9); Red Blood Count 4.52 M/mm3 (4.2-5.4); White Blood Count 9.5 K/mm3 (4.4-11.0)
[2023-02-05 17:42] LABS: Vitamin D,25 Hydroxy 51.6 ng/mL
[2023-02-05 17:54] LABS: ALB/GLOB Ratio 1.3 RATIO (0.9-2.4); AST(SGOT) 24 U/L (15-37); Alanine Aminotransfer ALT/SGPT 26 U/L (13-56); Albumin, Serum 4.3 g/dL (3.2-5.0); Alkaline Phosphatase 68 U/L (45-117); Anion Gap 6 (5-15); BUN 18 mg/dL (7-18); BUN/Creat Ratio 19.7 RATIO (10-20); Calcium,Total 10.1 mg/dL (8.5-10.1); Chloride 104 mmol/L (98-107); Creatinine, Serum 0.91 mg/dL (0.55-1.02); EST Glomerular Filtration Rate 62 mL/min (>60); Est Glom Filt Rate - Afr Amer 75 mL/min (>60); Globulin 3.4 g/dL (2.2-4.2); Glucose 105 mg/dL (74-106); Potassium 3.8 mmol/L (3.5-5.1); Protein, Total 7.7 g/dL (6.4-8.2); Sodium Level 138 mmol/L (136-145); Thyroid Stim Hormone (TSH) 2.26 uIU/mL (0.358-3.74)
== END | disposition home or self-care (01) ==
LOC: MFPLAB 15:30
PROVIDERS: PCP Family Medicine; Visit Provider Family Medicine
DX: E55.9 Vitamin D deficiency, unspecified (principal); I10 Essential (primary) hypertension
CPT/HCPCS: 36415; 80053; 82306; 84443; 85027

== ENCOUNTER → 2023-03-06 | Outpatient (CLI) | payer MEDICARE, SELFPAY ==
[2023-03-06 18:12] LABS: Anion Gap 6 (5-15); BUN 19 mg/dL (7-18); BUN/Creat Ratio 21.5 RATIO (10-20); Calcium,Total 9.8 mg/dL (8.5-10.1); Chloride 103 mmol/L (98-107); Cholesterol 192 mg/dL (200); Creatinine, Serum 0.88 mg/dL (0.55-1.02); EST Glomerular Filtration Rate 65 mL/min (>60); Est Glom Filt Rate - Afr Amer 78 mL/min (>60); Free T3 2.6 pg/mL (2.18-3.98); Glucose 85 mg/dL (74-106); High Density Lipoprotein 66 mg/dL; Potassium 4.2 mmol/L (3.5-5.1); Sodium Level 134 mmol/L (136-145); T4 Free Direct 1.46 ng/dL (0.76-1.46); Triglycerides 153 mg/dL; Very Low Density Lipoprotein 31 mg/dL (5-40)
== END | disposition home or self-care (01) ==
LOC: MFPLAB 14:56
PROVIDERS: PCP Family Medicine; Visit Provider Family Medicine
DX: I48.91 Unspecified atrial fibrillation (principal); E03.9 Hypothyroidism, unspecified
CPT/HCPCS: 36415; 80048; 80061; 84439; 84443; 84481

== ENCOUNTER → 2023-04-17 | Outpatient (CLI) | payer MEDICARE, SELFPAY ==
[2023-04-17 11:15] LABS: Anion Gap 6 (5-15); BUN 33 mg/dL (7-18); Calcium,Total 9.6 mg/dL (8.5-10.1); Chloride 98 mmol/L (98-107); EST Glomerular Filtration Rate 56 mL/min (>60); Est Glom Filt Rate - Afr Amer 68 mL/min (>60); Glucose 89 mg/dL (74-106); Potassium 4.1 mmol/L (3.5-5.1); Sodium Level 132 mmol/L (136-145)
== END | disposition home or self-care (01) ==
LOC: LAB 10:06
PROVIDERS: PCP Family Medicine; Referring Provider Internal Medicine Cardiovascular Disease; Visit Provider Internal Medicine Cardiovascular Disease
DX: I48.91 Unspecified atrial fibrillation (principal); I10 Essential (primary) hypertension
CPT/HCPCS: 36415; 80048

== ENCOUNTER → 2023-04-24 | Outpatient (CLI) | payer MEDICARE, SELFPAY ==
[2023-04-24 10:48] LABS: Anion Gap 7 (5-15); BUN 23 mg/dL (7-18); BUN/Creat Ratio 24.5 RATIO (10-20); Calcium,Total 9.9 mg/dL (8.5-10.1); Chloride 102 mmol/L (98-107); Creatinine, Serum 0.94 mg/dL (0.55-1.02); EST Glomerular Filtration Rate 60 mL/min (>60); Est Glom Filt Rate - Afr Amer 73 mL/min (>60); Glucose 86 mg/dL (74-106); Potassium 4.3 mmol/L (3.5-5.1); Sodium Level 137 mmol/L (136-145)
== END | disposition home or self-care (01) ==
LOC: LAB 09:23
PROVIDERS: PCP Family Medicine; Referring Provider Internal Medicine Cardiovascular Disease; Visit Provider Internal Medicine Cardiovascular Disease
DX: I10 Essential (primary) hypertension (principal)
CPT/HCPCS: 36415; 80048

== ENCOUNTER → 2023-05-13 | Outpatient (CLI) | payer MEDICARE, SELFPAY ==
--- NOTE | 2023-05-13 12:44 | ECHOD_ITS ---
Reason For Study: Afib Procedure This was a 2D Doppler, Color Flow transthoracic echocardiogram. Exam performed in department. Left Ventricle Normal LV size. Left ventricular systolic function is normal. The left ventricular ejection fraction is 55 %. No regional wall motion abnormalities noted. Right Ventricle Normal RV size. Normal systolic function. Atria The left atrium is mildly enlarged. The right atrium is mildly enlarged. Mitral Valve Normal mitral valve. Mild (1+) eccentric mitral valve insufficiency. Tricuspid Valve Normal tricuspid valve. Mild (1+) tricuspid valve insufficiency. Pulmonary artery systolic pressure is 29 mmHg. Aortic Valve Normal aortic valve. Trisinus/trileaflet aortic valve. Pulmonic Valve Normal pulmonic valve. Great Vessels Normal aortic root. The pulmonary artery is normal size. Inferior vena cava collapse with sniff. Pericardium/Pleural No pericardial effusion. MMode/2D Measurements & Calculations LVIDd: 4.2 cm IVSd: 1.1 cm Ao root diam: 3.3 cm LVIDs: 3.0 cm LVPWd: 1.1 cm LA dimension: 4.9 cm RVDd: 3.9 cm FS: 27.9 % LAV(MOD-bp): 74.1 ml LA A4 area: 25.0 cm2 RA A4 area: 24.4 cm2 LAV(MOD-bp) Indexed: 40.7 ml/m2 LAV(MOD-sp2): 67.8 ml LAV(MOD-sp4): 78.5 ml TAPSE: 1.7 cm Doppler Measurements & Calculations MV E max glynn: 88.2 cm/sec MV V2 max: 102.7 cm/sec Ao V2 max: 84.2 cm/sec MV max P.2 mmHg Ao max P.8 mmHg MV V2 mean: 44.8 cm/sec Ao V2 mean: 56.3 cm/sec MV mean P.1 mmHg Ao mean P.5 mmHg MV V2 VTI: 20.7 cm Ao V2 VTI: 17.9 cm AV (velocity ratio): 1.0 LV V1 max: 80.8 cm/sec PA V2 max: 95.7 cm/sec TR max glynn: 252.3 cm/sec LV V1 max P.6 mmHg TR max P.5 mmHg LV V1 mean P.2 mmHg LV V1 mean: 50.8 cm/sec LV V1 VTI: 18.1 cm ECHO/Echo Complete Interpretation Summary Normal LV size. Left ventricular systolic function is normal. The left ventricular ejection fraction is 55 %. Pulmonary artery systolic pressure is 29 mmHg. Mild (1+) eccentric mitral valve insufficiency. Ordering Physician: Orlando Almaraz Referring Physician: Orlando Almaraz Performed By: Deondre Driscoll RCS
== END | disposition home or self-care (01) ==
LOC: CVS 12:43
PROVIDERS: PCP Family Medicine; Referring Provider Internal Medicine Cardiovascular Disease; Visit Provider Internal Medicine Cardiovascular Disease
DX: I48.91 Unspecified atrial fibrillation (principal); Z98.890 Other specified postprocedural states
CPT/HCPCS: 93306

== ENCOUNTER → 2023-09-19 | Outpatient (CLI) | payer MEDICARE, SELFPAY ==
[2023-09-19 14:43] LABS: Absolute Lymphocyte Count 1.13 X10^3/uL (0.83-4.51); Absolute Neutrophil Count 6.7 X10^3/uL (2.0-7.7); Basophil# 0.07 X10^3/uL; Basophil% 0.8 % (0-1); Eosinophils% 1.2 % (0-5); Hematocrit 37.9 % (37-47); Hemoglobin 12.4 g/dL (12.0-15.0); Lymphocyte # 1.13 X10^3/ul (0.83-4.51); Lymphocyte % 13.1 % (19-41); Mean Corp Hgb Conc 32.7 g/dL (32-36); Mean Corpuscular Hgb 29.6 pg (27.0-32.0); Mean Corpuscular Volume 90.5 fL (81-99); Mean Platelet Vol. 9.7 fl (6.2-12.0); Monocyte# 0.61 X10^3/uL; Monocyte% 7.1 % (0-10); NRBC Flagged by Analyzer 0 % (0-5); Neutrophil # 6.68 X10^3/uL (2.7-7.7); Neutrophil % 77.3 % (47-70); Platelet Count 271 K/mm3 (150-450); RBC Distribution Width CV 12.5 % (11.6-14.6); RBC Distribution Width SD 41.4 fl (35.1-43.9); Red Blood Count 4.19 M/mm3 (4.2-5.4); White Blood Count 8.6 K/mm3 (4.4-11.0)
[2023-09-19 15:05] LABS: Anion Gap 8 (5-15); BUN 23 mg/dL (7-18); BUN/Creat Ratio 21.9 RATIO (10-20); Calcium,Total 9.4 mg/dL (8.5-10.1); Chloride 97 mmol/L (98-107); Cholesterol 175 mg/dL (200); Creatinine, Serum 1.05 mg/dL (0.55-1.02); EST Glomerular Filtration Rate 53 mL/min (>60); Est Glom Filt Rate - Afr Amer 64 mL/min (>60); Free T3 2.2 pg/mL (2.18-3.98); Glucose 88 mg/dL (74-106); High Density Lipoprotein 58 mg/dL; Potassium 4.5 mmol/L (3.5-5.1); Sodium Level 129 mmol/L (136-145); T4 Free Direct 1.26 ng/dL (0.76-1.46); Thyroid Stim Hormone (TSH) 2.27 uIU/mL (0.358-3.74); Triglycerides 182 mg/dL; Very Low Density Lipoprotein 36 mg/dL (5-40)
== END | disposition home or self-care (01) ==
LOC: MFPLAB 11:23
PROVIDERS: PCP Family Medicine; Visit Provider Family Medicine
DX: E03.9 Hypothyroidism, unspecified (principal); I10 Essential (primary) hypertension; R06.02 Shortness of breath
CPT/HCPCS: 36415; 80048; 80061; 84439; 84443; 84481; 85025

== ENCOUNTER → 2023-11-22 | Outpatient (CLI) | payer MEDICARE, SELFPAY ==
[2023-11-22 11:44] LABS: Hematocrit 39.8 % (37-47); Hemoglobin 13.2 g/dL (12.0-15.0); Mean Corp Hgb Conc 33.2 g/dL (32-36); Mean Corpuscular Hgb 29.9 pg (27.0-32.0); Mean Platelet Vol. 9.1 fl (6.2-12.0); Platelet Count 328 K/mm3 (150-450); RBC Distribution Width CV 12.7 % (11.6-14.6); Red Blood Count 4.42 M/mm3 (4.2-5.4); White Blood Count 10.2 K/mm3 (4.4-11.0)
[2023-11-22 12:06] LABS: Anion Gap 8 (5-15); BUN 23 mg/dL (7-18); BUN/Creat Ratio 23.8 RATIO (10-20); Calcium,Total 10.5 mg/dL (8.5-10.1); Chloride 100 mmol/L (98-107); Creatinine, Serum 0.97 mg/dL (0.55-1.02); EST Glomerular Filtration Rate 58 mL/min (>60); Est Glom Filt Rate - Afr Amer 70 mL/min (>60); Glucose 104 mg/dL (74-106); Potassium 4.3 mmol/L (3.5-5.1); Sodium Level 131 mmol/L (136-145)
== END | disposition home or self-care (01) ==
LOC: LAB 11:22
PROVIDERS: PCP Family Medicine; Referring Provider Internal Medicine Cardiovascular Disease; Visit Provider Internal Medicine Cardiovascular Disease
DX: I48.91 Unspecified atrial fibrillation (principal)
CPT/HCPCS: 80048; 85027

== ENCOUNTER → 2024-03-18 | Outpatient (CLI) | payer MEDICARE, SELFPAY ==
[2024-03-18 16:44] LABS: ALB/GLOB Ratio 1.4 RATIO (0.9-2.4); AST(SGOT) 23 U/L (15-37); Alanine Aminotransfer ALT/SGPT 28 U/L (13-56); Alkaline Phosphatase 62 U/L (45-117); Anion Gap 7 (5-15); BUN 29 mg/dL (7-18); BUN/Creat Ratio 25.7 RATIO (10-20); Calcium,Total 10.1 mg/dL (8.5-10.1); Chloride 101 mmol/L (98-107); Cholesterol 185 mg/dL (200); Creatinine, Serum 1.13 mg/dL (0.55-1.02); EST Glomerular Filtration Rate 49 mL/min (>60); Est Glom Filt Rate - Afr Amer 59 mL/min (>60); Free T3 2.4 pg/mL (2.18-3.98); Globulin 2.9 g/dL (2.2-4.2); Glucose 90 mg/dL (74-106); High Density Lipoprotein 63 mg/dL; Potassium 4.5 mmol/L (3.5-5.1); Protein, Total 6.9 g/dL (6.4-8.2); Sodium Level 134 mmol/L (136-145); T4 Free Direct 1.35 ng/dL (0.76-1.46); Triglycerides 165 mg/dL; Very Low Density Lipoprotein 33 mg/dL (5-40)
== END | disposition home or self-care (01) ==
LOC: MFPLAB 11:08
PROVIDERS: PCP Family Medicine; Referring Provider Family Medicine; Visit Provider Family Medicine
DX: I10 Essential (primary) hypertension (principal); E03.9 Hypothyroidism, unspecified
CPT/HCPCS: 36415; 80053; 80061; 84439; 84443; 84481

== ENCOUNTER → 2024-04-22 | Outpatient (CLI) | payer MEDICARE, SELFPAY ==
[2024-04-22 18:37] LABS: CRP < 3.00 mg/L (0.0-3.0)
[2024-04-24 15:08] LABS: Endomysial Antibody IgA Negative (Negative); Immunoglobulin A 253 mg/dL (64-422); t-Transglutaminase IgA <2 U/mL (0-3)
== END | disposition home or self-care (01) ==
LOC: MTLAB 15:39
PROVIDERS: PCP Family Medicine; Referring Provider Internal Medicine Gastroenterology; Visit Provider Internal Medicine Gastroenterology
DX: R19.7 Diarrhea, unspecified (principal)
CPT/HCPCS: 36415; 82784; 83516; 86140; 86255

== ENCOUNTER → 2024-04-23 | Outpatient (CLI) | payer MEDICARE, SELFPAY ==
[2024-04-27 17:07] LABS: Calprotectin, Stool 80 ug/g (0-120)
== END | disposition home or self-care (01) ==
LOC: MTLAB 12:50
PROVIDERS: PCP Family Medicine; Referring Provider Internal Medicine Gastroenterology; Visit Provider Internal Medicine Gastroenterology
DX: R19.7 Diarrhea, unspecified (principal)
CPT/HCPCS: 82653; 83993; 87493

== ENCOUNTER → 2024-06-05 | Outpatient (CLI) | payer MEDICARE, SELFPAY ==
[2024-06-05 17:38] LABS: Pro- Brain NATRIURETIC PEPTIDE 6786 pg/mL (<=1800)
== END | disposition home or self-care (01) ==
LOC: LAB 16:29
PROVIDERS: PCP Family Medicine; Referring Provider Student in an Organized Health Care Education/Training Program; Visit Provider Student in an Organized Health Care Education/Training Program
DX: R06.09 Other forms of dyspnea (principal)
CPT/HCPCS: 36415; 83880

== ENCOUNTER → 2024-06-16 | Outpatient (CLI) | payer MEDICARE, SELFPAY ==
[2024-06-16 13:39] LABS: Anion Gap 13 (5-15); BUN 20 mg/dL (4-19); BUN/Creat Ratio 17.3 RATIO (10-20); Calcium,Total 9.8 mg/dL (7.6-11.0); Carbon Dioxide 24.3 mmol/L (21.0-32.0); Chloride 94 mmol/L (98-108); Creatinine, Serum 1.15 mg/dL (0.70-1.20); EST Glomerular Filtration Rate 46 (>60); Glucose 113 mg/dL (70-99); Potassium 3.3 mmol/L (3.3-5.1); Sodium Level 131 mmol/L (133-145)
== END | disposition home or self-care (01) ==
LOC: LAB 11:41
PROVIDERS: PCP Family Medicine; Referring Provider Student in an Organized Health Care Education/Training Program; Visit Provider Student in an Organized Health Care Education/Training Program
DX: R60.9 Edema, unspecified (principal)
CPT/HCPCS: 36415; 80048

== ENCOUNTER → 2024-07-02 | Outpatient (CLI) | payer MEDICARE, SELFPAY ==
--- NOTE | 2024-07-02 12:44 | ECHOD_ITS ---
Reason For Study : CHF Procedure This was a 2D Doppler, Color Flow transthoracic echocardiogram. Exam performed in department. Left Ventricle Normal LV size. Left ventricular systolic function is normal. The left ventricular ejection fraction is 60 %. No regional wall motion abnormalities noted. Right Ventricle Normal RV size. Normal systolic function. Atria Normal left atrium. Normal right atrium. Mitral Valve Normal mitral valve. Mild (1+) eccentric mitral valve insufficiency. Tricuspid Valve Normal tricuspid valve. Mild tricuspid valve insufficiency. Pulmonary artery systolic pressure is 28 mmHg. Aortic Valve Trisinus/trileaflet aortic valve. Mild (1+) aortic valve insufficiency. Pulmonic Valve Normal pulmonic valve. Great Vessels Normal aortic root. The pulmonary artery is normal size. Normal inferior vena cava. Pericardium/Pleural No pericardial effusion. MMode/2D Measurements & Calculations LVIDd: 4.1 cm IVSd: 0.98 cm Ao root diam: 3.2 cm LVIDs: 2.6 cm LVPWd: 1.1 cm FS: 38.1 % LAV(MOD-bp): 96.7 ml LVAd ap4: 25.0 cm2 LVAd ap2: 18.5 cm2 LAV(MOD-bp) Indexed: 56.1 ml/m2 LVLd ap4: 6.6 cm LVLd ap2: 7.0 cm LAV(MOD-sp2): 96.4 ml EDV(MOD-sp4): 77.2 ml EDV(MOD-sp2): 42.2 ml LAV(MOD-sp4): 89.7 ml EDV(sp4-el): 80.6 ml EDV(sp2-el): 41.1 ml LVAs ap4: 12.8 cm2 LVAs ap2: 9.3 cm2 LVLs ap4: 5.7 cm LVLs ap2: 5.5 cm ESV(MOD-sp4): 24.9 ml ESV(MOD-sp2): 13.3 ml ESV(sp4-el): 24.4 ml ESV(sp2-el): 13.3 ml EF(MOD-sp4): 67.8 % EF(MOD-sp2): 68.6 % EF(sp4-el): 69.8 % SV(MOD-sp4): 52.3 ml SV(MOD-sp2): 29.0 ml SV(sp4-el): 56.2 ml SI(MOD-sp4): 30.3 ml/m2 SI(MOD-sp2): 16.8 ml/m2 LA A4 area: 26.1 cm2 LA dimension(2D): 5.5 cm RA A4 area: 21.5 cm2 TAPSE: 1.6 cm Doppler Measurements & Calculations MV E max roscoe: 78.6 cm/sec Lat Peak E' Roscoe: 5.2 cm/sec Med Peak E' Roscoe: 4.5 cm/sec E/E' lat: 15.2 E/E' med: 17.4 Ao V2 max: 96.1 cm/sec LV V1 max: 68.8 cm/sec MR max roscoe: 502.8 cm/sec Ao max P.7 mmHg LV V1 max P.9 mmHg MR max P.1 mmHg Ao V2 mean: 65.4 cm/sec LV V1 mean P.1 mmHg MR mean roscoe: 395.3 cm/sec Ao mean P.9 mmHg LV V1 mean: 49.5 cm/sec MR mean P.0 mmHg Ao V2 VTI: 16.5 cm LV V1 VTI: 13.1 cm MR VTI: 155.1 cm AV (velocity ratio): 0.79 PA V2 max: 76.3 cm/sec TR max roscoe: 245.1 cm/sec PA V2 mean: 54.2 cm/sec TR max P.0 mmHg ECHO/Echo Complete Interpretation Summary Normal LV size. Left ventricular systolic function is normal. The left ventricular ejection fraction is 60 %. Mild (1+) eccentric mitral valve insufficiency. Ordering Physician: Mikhail Fernández Referring Physician: Ángel Rivera Performed By: Lianna Molina, ANA PAULA, RVT
== END | disposition home or self-care (01) ==
LOC: CVS 12:44
PROVIDERS: PCP Family Medicine; Referring Provider Student in an Organized Health Care Education/Training Program; Visit Provider Student in an Organized Health Care Education/Training Program
DX: R06.02 Shortness of breath (principal); R06.09 Other forms of dyspnea
CPT/HCPCS: 93306

== ENCOUNTER → 2024-07-14 | Outpatient (CLI) | payer MEDICARE, SELFPAY ==
--- OUTSIDE RECORDS SUMMARY | 2024-07-14 21:40 | XMS RPT_ITS | CCD ---
Author Organization [facility] Care Team Providers Care Valve Liner Rubber Name Role Phone Dr. Ángel Rivera Primary Care Provider Dr. Ángel Rivera Referring Provider Dr. Orlando Almaraz Attending Provider Dr. Darryl Thomason Attending Provider Nicole ROB, Dr. Neal Primary Care Provider Nicole ROB, Dr. Neal Attending Provider Nicole ROB, Dr. Neal Referring Provider Bindu ROB, Dr. Hamilton Attending Provider Bindu ROB, Dr. Hamilton Referring Provider Pradeep OVERTON Mikhail Attending Provider Pradeep OVERTON Mikhail Referring Provider Katelin ROB, Dr. Andrews Attending Provider Ángel Rivera Primary Care Unavailable Demiter, Mikhail Referring Unavailable Demiter, Mikhail Attending Unavailable Alfonso Ruano Attending Unavailable Ángel Rivera Primary Care Unavailable Ángel Rviera Primary Care Unavailable Demiter, Mikhail Referring Unavailable Demiter, Mikhail Attending Unavailable Ángel Rivera Primary Care Unavailable Demiter, Mikhail Attending Unavailable Demiter, Mikhail Referring Unavailable Ángel Rivera Referring Unavailable Nicole, Ángel Primary Care Unavailable Demiter, Mikhail Attending Unavailable Ángel Rivera Primary Care Unavailable Darryl Thomason Attending Unavailable Ángel Rivera Referring Unavailable RiveraÁngel layne Primary Care Unavailable Demiter, Mikhail Attending Unavailable Rivera, Ángel Referring Unavailable Rivera, Ángel Primary Care Unavailable Abdulaziz THURSTON, Brina Attending Unavailable Rivera, Ángel Primary Care Unavailable Demiter, Mikhail Attending Unavailable Demiter, Mikhail Referring Unavailable Jabour, Vincent Attending Unavailable Alfonso Ruano Referring Unavailable Ángel Rivera Primary Care Unavailable Alfonso Ruano Attending Unavailable Alfonso Ruano Referring Unavailable Ángel Rivera Primary Care Unavailable Ángel Rivera Referring Unavailable Nicole, Ángel Primary Care Unavailable Nicole, Ángel Attending Unavailable Ángel Rivera Primary Care Unavailable Orlando Almaraz Attending Unavailable Orlando Almaraz Referring Unavailable Nicole, Ángel Attending Unavailable Nicole, Ángel Primary Care Unavailable Medications Current Medications Medication Drug Class(es) Dates Sig (Normalized) Sig (Original) apixaban 5 mg oral tablet (9 sources) Factor Xa Inhibitor Start: 4 take 1 tablet by mouth twice daily Apixaban (Eliquis) 5 mg tablet Active 5 mg PO TWICE A DAY March 22, 2023 1:00am furosemide 40 mg oral tablet (6 sources) Loop Diuretic Start: 5 End: 5 take 1 tablet by mouth once daily in the morning Furosemide (Lasix) 40 mg tablet Active 40 mg PO EVERY MORNING July 01, 2024 1:35pm hydroxychloroquine sulfate 200 mg oral tablet (14 sources) Antimalarial, Antirheumatic Agent Start: 9 take 1 tablet by mouth once daily Hydroxychloroquine 200 MG tablet Active 200 mg PO DAILY February 21, 2018 1:00am levothyroxine sodium 0.05 mg oral capsule (14 sources) l-Thyroxine Start: 9 take 1 capsule by mouth once daily Levothyroxine 50 mcg capsule Active 50 ug PO DAILY February 19, 2018 1:00am losartan potassium 50 mg oral tablet (20 sources) Angiotensin 2 Receptor Angella Start: 4 take 2 tablets by mouth once daily Losartan 50 mg tablet Active 100 mg PO DAILY November 22, 2023 4:12pm Start: 02-19-2018 End: 11-22-2023 take 1 tablet by mouth once daily Losartan 50 mg tablet Discontinued 50 mg PO DAILY February 19, 2018 1:00am November 22, 2023 4:13pm 24 hr metoprolol succinate 50 mg extended release oral tablet (20 sources) beta-Adrenergic Angella Start: 07-01-2024 take 1 tablet by mouth once daily Metoprolol Succinate 50 mg tablet extended release 24 hr Active 50 mg PO daily July 01, 2024 1:44pm Start: 11-22-2023 End: 07-01-2024 take 1 tablet by mouth twice daily Metoprolol Succinate 50 mg tablet extended release 24 hr Discontinued 50 mg PO TWICE A DAY November 22, 2023 12:00am July 01, 2024 1:44pm Start: 02-19-2018 End: 11-22-2023 take 1 tablet by mouth once daily Metoprolol Succinate (Toprol Xl) 100 mg tablet extended release 24 hr Discontinued 100 mg PO DAILY February 19, 2018 1:00am November 22, 2023 10:49am Mv-Mn-Folic Ac-Vit K-Herb 289 (Alive Once Daily Women 50 Plus) 800-100 mcg tablet (14 sources) Start: 02-19-2018 take 50-800 tablets by mouth once daily Mv-Mn-Folic Ac-Vit K-Herb 289 (Alive Once Daily Women 50 Plus) 800-100 mcg tablet Active 1 {tbl} PO DAILY February 19, 2018 1:00am Start: 02-19-2018 take 50-800 tablets by mouth once daily Mv-Mn-Folic Ac-Vit K-Herb 289 (Alive Once Daily Women 50 Plus) 800-100 mcg tablet Active 1 TABLET PO DAILY February 19, 2018 12:00am Start: 02-19-2018 take 50-800 tablets by mouth once daily Mv-Mn-Folic Ac-Vit K-Herb 289 (Alive Once Daily Women 50 Plus) 800-100 mcg tablet Active 1 TABLET PO DAILY February 19, 2018 1:00am sertraline 25 mg oral tablet (4 sources) Serotonin Reuptake Inhibitor Start: 06-05-2024 take 1 tablet by mouth once daily Sertraline 25 mg tablet Active 25 mg PO daily June 05, 2024 12:00am spironolactone 50 mg oral tablet (20 sources) Aldosterone Antagonist Start: 06-08-2024 take 1 tablet by mouth once daily Spironolactone 50 mg tablet Active 50 mg PO DAILY June 08, 2024 10:41am Start: 04-17-2023 End: 06-08-2024 take 1 tablet by mouth once daily Spironolactone 25 mg tablet Discontinued 25 mg PO DAILY October 15, 2023 8:04pm June 05, 2024 4:18pm Completed/Discontinued Medications Medication Drug Class(es) Dates Sig (Normalized) Sig (Original) amLODIPine 5 mg oral tablet (9 sources) Dihydropyridine Calcium Channel Angella Start: 03-22-2023 End: 06-08-2024 take 1 tablet by mouth once daily Amlodipine 5 mg tablet Discontinued 5 mg PO DAILY March 22, 2023 1:00am June 08, 2024 10:42am Antiarthritic Combination No.2 (Glucosamine-Chondr oitin) 900 mg tablet (14 sources) Start: 02-19-2018 End: 11-22-2023 take 1 tablet by mouth once daily Antiarthritic Combination No.2 (Glucosamine-Chond roitin) 900 mg tablet Discontinued 900 mg PO DAILY February 19, 2018 1:00am November 22, 2023 10:49am Start: 02-19-2018 take 1 tablet by kristyn th once daily Antiarthritic Combination No.2 (Glucosamine-Chondroitin) 900 mg tablet Active 900 MG PO DAILY February 19, 2018 12:00am Start: 02-19-2018 take 1 tablet by kristyn th once daily Antiarthritic Combination No.2 (Glucosamine-Chondroitin) 900 mg tablet Active 900 MG PO DAILY February 19, 2018 1:00am famotidine 20 mg oral tablet (9 sources) Histamine-2 Receptor Antagonist Start: 03-22-2023 End: 04-10-2023 take 1 tablet by mouth once daily Famotidine 20 mg tablet Discontinued 20 mg PO DAILY March 22, 2023 1:00am April 10, 2023 1:57pm hydroCHLOROthiazide 25 mg oral tablet (9 sources) Thiazide Diuretic Start: 04-10-2023 End: 04-17-2023 take 1 tablet by mouth once daily Hydrochlorothiazide 25 mg tablet Discontinued 25 mg PO DAILY April 10, 2023 1:00am April 17, 2023 2:57pm lactobacillus acidophilus 1.5 mg oral capsule (14 sources) Start: 02-19-2018 End: 07-01-2024 Lactobacillus Acidophilus (Probiotic Acidophilus) 1.5 mg (250 million cell) capsule Discontinued 100 NMA PO DAILY February 19, 2018 1:00am July 01, 2024 1:07pm omeprazole 20 mg delayed release oral tablet (14 sources) Proton Pump Inhibitor Start: 02-19-2018 End: 03-22-2023 take 1 tablet by mouth once daily Omeprazole 20 mg tablet,delayed release (DR/EC) Discontinued 20 mg PO DAILY February 19, 2018 1:00am March 22, 2023 3:29pm sucralfate 1000 mg oral tablet (14 sources) Aluminum Complex Start: 02-19-2018 End: 07-01-2024 take 1 tablet by mouth at bedtime Sucralfate 1 gram tablet Discontinued 1 g PO before meals and at bedtime February 19, 2018 1:00am July 01, 2024 1:07pm wheat dextrin 3000 mg powder for oral solution (14 sources) Start: 02-21-2018 End: 06-05-2024 Wheat Dextrin 1 EACH powder in packet Discontinued 1 NMA PO DAILY February 21, 2018 1:00am June 05, 2024 3:32pm Start: 02-21-2018 Wheat Dextrin Active 1 EACH PO DAILY February 21, 2018 1:00am Problems Problem Classification Problem Date Documented Da te Episodic/Chronic Cardiac dysrhythmias (20 sources) Atrial fibrillation; Translations: [Unspecified atrial fibrillation] Onset: 07-01-2024 04-10-2023 Chronic Comment on above: The patient has been in atrial fibs since February 05, 2023. The patient's [id number] score is equal to 4. Patient is asymptomatic and aerobically active. She denies any nuisance bleeding from the Eliquis. Her heart rate and blood pressure are well-controlled on her current medical therapy. I do not feel that we can improve her clinical status by attempting direct-current cardioversion. We do not know the exact duration of her atrial fibs we do know she has been in it persistently since February 02, 2023. Essential hypertension (20 sources) Hypertensive disorder; Translations: [Essential (primary) hypertension] Onset: 07-01-2024 02-19-2018 Chronic Other gastrointestinal disorders (14 sources) Diarrhea; Translations: [Diarrhea, unspecified] 02-24-2018 Episodic Other gastrointestinal disorders (1 source) Diarrhea, unspecified; Translations: [Diarrhea, unspecified] Onset: 05-02-2024 Episodic Other lower respiratory disease (9 sources) Dyspnea on exertion; Translations: [Other forms of dyspnea] 06-08-2024 Episodic Other lower respiratory disease (1 source) Shortness of breath; Translations: [Shortness of breath] Onset: 07-07-2024 Episodic Other lower respiratory disease (1 source) Other forms of dyspnea; Translations: [Other forms of dyspnea] Onset: 06-09-2024 Episodic Residual codes; unclassified (14 sources) History of colonoscopy; Translations: [Other specified postprocedural states] 02-19-2018 Episodic Comment on above: 03/2011 Residual codes; unclassified (9 sources) Bilateral lower limb edema; Translations: [Localized edema] 06-08-2024 Episodic Residual codes; unclassified (1 source) Edema, unspecified; Translations: [Edema, unspecified] Onset: 06-20-2024 Episodic Rheumatoid arthritis and related disease (14 sources) Rheumatoid arthritis; Translations: [Rheumatoid arthritis, unspecified] 02-19-2018 Chronic Thyroid disorders (10 sources) Hypothyroidism; Translations: [Hypothyroidism, unspecified] Onset: 10-17-2023 03-22-2023 Chronic Thyroid disorders (14 sources) Disorder of thyroid gland; Translations: [Disorder of thyroid, unspecified] 02-19-2018 Episodic Unclassified (1 source) Other persistent atrial fibrillation; Translations: [Other persistent atrial fibrillation] Onset: 06-05-2024 Results Test Name Value Interpretation Reference Range Facility Echo Complete 07-02-2024 Echo Complete [facility] [address] [place] [address] Echo Complete 07/02/24 1252 MR#: [id number] Acct: [id number] Name: BRIAN KELLER Rep #: [id number] : 1940 84 From: Darryl Thomason MD Attending Dr: HERMAN Terrazas Status: REG CL I Ordering Dr: Mikhail Fernández Date: 07/02/24 Location: [facility] Sex: F C Admitted: Reason For Study : CHF Procedure This was a 2D Doppler, Color Flow transthoracic echocardiogram. Exam performed in department. Left Ventricle Normal LV size. Left ventricular systolic function is normal. The left ventricular ejection fraction is 60 %. No regional wall motion abnormalities noted. Right Ventricle Normal RV size. Normal systolic function. Atria Normal left atrium. Normal right atrium. Mitral Valve Normal mitral valve. Mild (1+) eccentric mitral valve insufficiency. Tricuspid Valve Normal tricuspid valve. Mild tricuspid valve insufficiency. Pulmonary artery systolic pressure is 28 mmHg. Aortic Valve Trisinus/trileaflet aortic valve. Mild (1+) aortic valve insufficiency. Pulmonic Valve Normal pulmonic valve. Great Vessels Normal aortic root. The pulmonary artery is normal size. Normal inferior vena cava. Pericardium/Pleural No pericardial effusion. MMode/2D Measurements Calculations LVIDd: 4.1 cm IVSd: 0.98 cm Ao root diam: 3.2 cm LVIDs: 2.6 cm LVPWd: 1.1 cm FS: 38.1 % LAV(MOD-bp): 96.7 ml LVAd ap4: 25.0 cm2 LVAd ap2: 18.5 cm2 LAV(MOD-bp) Indexed: 56.1 ml/m2 LVLd ap4: 6.6 cm LVLd ap2: 7.0 cm LAV(MOD-sp2): 96.4 ml EDV(MOD-sp4): 77.2 ml EDV(MOD-sp2): 42.2 ml LAV(MOD-sp4): 89.7 ml EDV(sp4-el): 80.6 ml EDV(sp2-el): 41.1 ml LVAs ap4: 12.8 cm2 LVAs ap2: 9.3 cm2 LVLs ap4: 5.7 cm LVLs ap2: 5.5 cm ESV(MOD-sp4): 24.9 ml ESV(MOD-sp2): 13.3 ml ESV(sp4-el): 24.4 ml ESV(sp2-el): 13.3 ml EF(MOD-sp4): 67.8 % EF(MOD-sp2): 68.6 % EF(sp4-el): 69.8 % SV(MOD-sp4): 52.3 ml SV(MOD-sp2): 29.0 ml SV(sp4-el): 56.2 ml SI(MOD-sp4): 30.3 ml/m2 SI(MOD-sp2): 16.8 ml/m2 LA A4 area: 26.1 cm2 LA dimension(2D): 5.5 cm RA A4 area: 21.5 cm2 TAPSE: 1.6 cm Doppler Measurements Calculations MV E max roscoe: 78.6 cm/sec Lat Peak E' Roscoe: 5.2 cm/sec Med Peak E' Roscoe: 4.5 cm/sec E/E' lat: 15.2 E/E' med: 17.4 Ao V2 max: 96.1 cm/sec LV V1 max: 68.8 cm/sec MR max roscoe: 502.8 cm/sec Ao max P.7 mmHg LV V1 max P.9 mmHg MR max P.1 mmHg Ao V2 mean: 65.4 cm/sec LV V1 mean P.1 mmHg MR mean roscoe: 395.3 cm/sec Ao mean P.9 mmHg LV V1 mean: 49.5 cm/sec MR mean P.0 mmHg Ao V2 VTI: 16.5 cm LV V1 VTI: 13.1 cm MR VTI: 155.1 cm AV (velocity ratio): 0.79 PA V2 max: 76.3 cm/sec TR max roscoe: 245.1 cm/sec PA V2 mean: 54.2 cm/sec TR max P.0 mmHg ECHO/Echo Complete Interpretation Summary Normal LV size. Left ventricular systolic function is normal. The left ventricular ejection fraction is 60 %. Mild (1+) eccentric mitral valve insufficiency. Ordering Physician: Mikhail Fernández Referring Physician: Ángel Rivera Performed By: Lianna Molina, ANA PAULA, RVT 07/02/24 1448 Date Darryl Thomason MD CC: Dr. Ángel Rivera MD; HERMAN Terrazas Date Dictated: 07/02/24 1252 Date Transcribed: 07/02/24 1448 Chinese Herbalist: Signed Normal [facility] Echocardiogram study reportO rdered By: Darryl Thomason on 07-02-2024 Study report [facility] [place] [address] Echo Complete 07/02/24 1252 MR#: [id number] Acct: [id number] Name: BRIAN KELLER Rep #:[id number] : 1940 84 From: Darryl Berry Attending Dr: HERMAN Terrazas atus: REG CLI Ordering Dr: Mikhail Fernández Date: 07/02/24 Location: [facility] Sex: F C Admitted: Reason For Study : CHF Procedure This was a 2D Doppler, Color Flow transthoracic echocardiogram. Exam performed in department. Left Ventricle Normal LV size. Left ventricular systolic function is normal. The left ventricular ejection fraction is 60 %. No regional wall motion abnormalities noted. Right Ventricle Normal RV size. Normal systolic function. Atria Normal left atrium. Normal right atrium. Mitral Valve Normal mitral valve. Mild (1+) eccentric mitral valve insufficiency. Tricuspid Valve Normal tricuspid valve. Mild tricuspid valve insufficiency. Pulmonary artery systolic pressure is 28 mmHg. Aortic Valve Trisinus/trileaflet aortic valve. Mild (1+) aortic valve insufficiency. Pulmonic Valve Normal pulmonic valve. Great Vessels Normal aortic root. The pulmonary artery is normal size. Normal inferior vena cava. Pericardium/Pleural No pericardial effusion. MMode/2D Measurements & Calculations LVIDd: 4.1 cm IVSd: 0.98 cm Ao root diam: 3.2 cm LVIDs: 2.6 cm LVPWd: 1.1 cm FS: 38.1 % LAV(MOD-bp): 96.7 ml LVAd ap4: 25.0 cm2 LVAd ap2: 18.5 cm2 LAV(MOD-bp) Indexed: 56.1 ml/m2 LVLd ap4: 6.6 cm LVLd ap2: 7.0 cm LAV(MOD-sp2): 96.4 ml EDV(MOD-sp4): 77.2 ml EDV(MOD-sp2): 42.2 ml LAV(MOD-sp4): 89.7 ml EDV(sp4-el): 80.6 ml EDV(sp2-el): 41.1 ml LVAs ap4: 12.8 cm2 LVAs ap2: 9.3 cm2 LVLs ap4: 5.7 cm LVLs ap2: 5.5 cm ESV(MOD-sp4): 24.9 ml ESV(MOD-sp2): 13.3 ml ESV(sp4-el): 24.4 ml ESV(sp2-el): 13.3 ml EF(MOD-sp4): 67.8 % EF(MOD-sp2): 68.6 % EF(sp4-el): 69.8 % SV(MOD-sp4): 52.3 ml SV(MOD-sp2): 29.0 ml SV(sp4-el): 56.2 ml SI(MOD-sp4): 30.3 ml/m2 SI(MOD-sp2): 16.8 ml/m2 LA A4 area: 26.1 cm2 LA dimension(2D): 5.5 cm RA A4 area: 21.5 cm2 TAPSE: 1.6 cm Doppler Measurements & Calculations MV E max roscoe: 78.6 cm/sec Lat Peak E' Roscoe: 5.2 cm/sec Med Peak E' Roscoe: 4.5 cm/sec E/E' lat: 15.2 E/E' med: 17.4 ___ Ao V2 max: 96.1 cm/sec LV V1 max: 68.8 cm/sec MR max roscoe: 502.8 cm/sec Ao max P.7 mmHg LV V1 max P.9 mmHg MR max P.1 mmHg Ao V2 mean: 65.4 cm/sec LV V1 mean P.1 mmHg MR mean roscoe: 395.3 cm/sec Ao mean P.9 mmHg LV V1 mean: 49.5 cm/sec MR mean P.0 mmHg Ao V2 VTI: 16.5 cm LV V1 VTI: 13.1 cm MR VTI: 155.1 cm AV (velocity ratio): 0.79 PA V2 max: 76.3 cm/sec TR max roscoe: 245.1 cm/sec PA V2 mean: 54.2 cm/sec TR max P.0 mmHg ECHO/Echo Complete Interpretation Summary Normal LV size. Left ventricular systolic function is normal. The left ventricular ejection fraction is 60 %. Mild (1+) eccentric mitral valve insufficiency. Ordering Physician: Mikhail Fernández Referring Physician: Ángel Rivera Performed By: Lianna Molina, ANA PAULA, RVT 07/02/24 1448 Date _ Darryl Thomason MD CC: Dr. Ángel Rivera MD; HERMAN Terrazas ~ Date Dictated: 07/02/24 1252 Date Transcribed: 07/02/24 1448 Chinese Herbalist: Signed [facility] Work Phone: Cardiology Visit Reporton Cardiology Visit Report [facility] [address] [place] [address] OFFICE VISIT Date of Service: 07/01/24 MR#: [id number] Acct: [id number] Name: BRIAN KELLER Rep #: [id number] : 1940 Provider: HERMAN Terrazas Age/Sex: 84/F Location[place] [facility] Status: Signed Agree with assessment and plan including updates after Echo results available. HPI HPI History of Present Illness Details: Brian Keller is an 84-year-old active white female who presents to the office today for follow-up for monitoring her cardiovascular health. She was diagnosed with atrial fibrillation 2022. And her heart rate has been controlled and she has been on oral anticoagulation since that point. We do not know when the patient actually went into atrial fibs. Patient has not been evaluated for DENY. She also has a history of hypertension that she reports has been elevated ever since the atrial fibrillation was diagnosed. Patient was last seen 06/05/2024 and presented with concerns of worsening lower extremity edema and shortness of breath. At that time, patient was initiated on Lasix, spironolactone was recommended to be increased, amlodipine was discontinued and echocardiogram was ordered. Patient is scheduled to have echocardiogram completed tomorrow 07/02/2024. Upon presentation today, patient reports she was unaware that her spironolactone was recommended to be increased; therefore, has only been taking 25 mg daily. She has been compliant with Lasix and did discontinue her amlodipine. Additionally, when reviewing medications, it is documented that patient was taking metoprolol succinate 50 mg twice daily; however, patient reports she has never taken this twice daily and when her dose was reduced from 100 to 50 mg, she only took this daily. Patient reports ongoing concern and her child's concern of her fast heart rate. Her child is a pharmacist and inquired about diltiazem. We did briefly discuss this at her last appointment; however, wanted to assess her heart rate after achieving euvolemia. Patient has lost 13 pounds since last appointment. She notes that her nausea and appetite have improved; however, she continues with diarrhea. Part of this weight loss is likely due to diuresis and water weight. She reports that her shortness of breath and lower extremity edema have significantly improved. She continues to get occasional chest tightness; however, this is less frequent now. Further ROS below. Intake Vital Signs 06/05/24 15:28 07/01/24 06:51 Height 5 ft 5 in 5 ft 5 in Weight: 135 lb BMI 22.4 BP 136/86 H Blood Pressure Location Lt brachial Position Sitting Respiration 18 Pulse 98 Pulse Source Monitor Intake Visit Reasons: 4 WK FU Client Project Coordinator Required: No Is patient in pain?: No Allergies No Known Allergies Allergy (Verified 07/01/24 13:05) Medications ???Medication ???Instructions ???Recorded ???Confirmed ???Type levothyroxine 50 mcg capsule 50 mcg PO DAILY 02/19/18 07/01/24 History multivit,mineral-folic acid 800 1 tab PO DAILY 02/19/18 07/01/24 H istory mcg-vit K 100 mcg-herbal no.289 tablet (Alive Once Daily Women 50 Plus) hydroxychloroquine 200 mg tablet 200 mg PO DAILY 02/21/18 07/01/24 History apixaban 5 mg tablet (Eliquis) 5 mg PO BID 03/22/23 07/01/24 Hist ory losartan 50 mg tablet 100 mg PO DAILY 11/22/23 07/01/24 History sertraline 25 mg tablet 25 mg PO QDAY 06/05/24 07/01/24 Hi story spironolactone 50 mg tablet 50 mg PO DAILY #90 tabs 06/08/24 0 07/01/24 Rx furosemide 40 mg tablet (Lasix) 40 mg PO QAM #30 tabs 07/01/24 Rx metoprolol succinate 50 mg 50 mg PO QDAY 07/01/24 07/01/24 Hi story tablet,extended release 24 hr Ejection fraction %: 55 Have you fallen in the past year?: No PFSH Medical History Hypothyroidism Atrial fibrillation Diarrhea Hypertension Rheumatoid arthritis Thyroid disease Surgical History S/P colonoscopy ( 02/24/18) History of esophagogastroduodenoscopy (EGD) ( 02/24/18) Hx of colonoscopy Family History Mother Arthritis Breast cancer Hypertension Heart disease Father Heart disease High cholesterol Brother Colon cancer Sister Thyroid disorder Social History Smoking Status: Never smoker second hand exposure: No alcohol intake: current alcohol intake frequency: holidays/special occasions only substance use type: does not use caffeine: Yes what type of physical activity do you participate in: walking, aerobics and weight training frequency: 3-4 times per week ROS Const Const: Negative (more content not included)... Normal [facility] Anion gap in Serum or Plasma Ordered By: Mikhail Fernández on 06-16-2024 Anion gap [Moles/Vol] 13 mmol/L 06-25 [facility] BUN/creatinine ratioOrdered By: Mikhail Fernández on 06-16-2024 Urea nitrogen/Creatinine [Mass ratio] 17.3 mg/mg 11-30 [facility] Basic Metabolic Profile (BMP )on 06-16-2024 BUN/CRE 17.3 RATIO Normal 11-30 [facility] Comment on above: Performed By: #### L 500.2500 #### [facility] [address] [place], [address] Calcium [Mass/Vol] 9.8 mg/dL Normal 7.6-11.0 [facility] Comment on above: Performed By: #### L 500.2500 #### [facility] [address] [place], [address] Chloride [Moles/Vol] 94 mmol/L Low 98-108 [facility] Comment on above: Performed By: #### L 500.2500 #### [facility] [address] [place], [address] CO2 [Moles/Vol] 24.3 mmol/L Normal 21.0-32.0 [facility] Comment on above: Performed By: #### L 500.2500 #### [facility] [address] [place], [address] Creatinine [Mass/Vol] 1.15 mg/dL Normal 0.70-1.20 [facility] Comment on above: Performed By: #### L [id number] #### [facility] [address] [place], [address] GAP 13 Normal 06-25 [facility] Comment on above: Performed By: #### L 500.2500 #### [facility] [address] [place], [address] GFR/1.73 sq M.predicted among non-blacks MDRD (S/P/Bld) [Vol rate/Area] 46 mL/min/{1.73_m2} Low >60 [facility] Comment on above: Result Comment: mL/m in/1.73m2 CKD-EPI Creatinine Equation (2020) Performed By: #### L 500.2500 #### [facility] [address] [place], [address] Glucose [Mass/Vol] 113 mg/dL High 70-99 [facility] Comment on above: Performed By: #### L 500.2500 #### [facility] [address] [place], [address] Potassium [Moles/Vol] 3.3 mmol/L Normal 3.3-5.1 [facility] Comment on above: Performed By: #### L 500.2500 #### [facility] [address] [place], [address] Sodium [Moles/Vol] 131 mmol/L Low 133-145 [facility] Comment on above: Performed By: #### L 500.2500 #### [facility] [address] [place], [address] Urea nitrogen [Mass/Vol] 20 mg/dL High 4-19 [facility] Comment on above: Performed By: #### L 500.2500 #### [facility] [address] [place], [address] Carbon dioxide, total [Moles /volume] in Central venous bloodOrdered By: Mikhail Fernández on 06-16-2024 CO2 [Moles/Vol] 24.3 mmol/L 21.0-32.0 [facility] Chloride assayOrdered By: Neisha Fernández on 06-16-2024 Chloride [Moles/Vol] 94 mmol/L Low 98-108 [facility] Glomerular filtration rate ( GFR) estimation/1.73 sq m using serum, plasma, or whole bOrdered By: Mikhail Fernández on 06-16-2024 GFR/1.73 sq M.predicted among non-blacks MDRD (S/P/Bld) [Vol rate/Area] 46 mL/min/{1.73_m2} Low >60 [facility] Comment on above: mL/min/1.73m2 CKD-EP I Creatinine Equation (2020) Potassium measurement (mass/ volume)Ordered By: Mikhail Fernández on 06-16-2024 Potassium (Unsp spec) [Mass/Vol] 3.3 mmol/L 3.3-5.1 [facility] Serum creatinine measurement (mass/volume)Ordered By: Mikhail Fernández on 06-16-2024 Creatinine [Mass/Vol] 1.15 mg/dL 0.70-1.20 [facility] Serum glucose measurement (m ass/volume)Ordered By: Mikhail Fernández on 06-16-2024 Glucose [Mass/Vol] 113 mg/dL High 70-99 [facility] Serum or plasma calcium earnest urement (mass/volume)Ordered By: Mikhail Fernández on 06-16-2024 Calcium [Mass/Vol] 9.8 mg/dL 7.6-11.0 [facility] Serum or plasma urea nitroge n measurement (mass/volume)Ordered By: Mikhail Fernández on 06-16-2024 Urea nitrogen [Mass/Vol] 20 mg/dL High 4-19 [facility] Sodium levelOrdered By: Blayne Fernández on 06-16-2024 Sodium [Moles/Vol] 131 mmol/L Low 133-145 [facility] 12 Lead [place] [facility] [place]-05-2024 12 Lead EKG performed by [facility] [address] [place] [address] 12 Lead EKG [place] [facility] 06/05/24 1543 MR#: [id number] Acct: [id number] Name: BRIAN KELLER Rep #: [id number] : 1940 84 From: Mikhail OVERTON Attending Dr: HERMAN Terrazas Status: DEP AM B Ordering Dr: Mikhail Fernández Date: 06/05/24 [place] [facility] [place] F C Admitted: BMS/12 Lead EKG performed [place] [facility] ECG Report Interpretation At rial fibrillation -Old anterior infarct. - Diffuse nonspecific T-abnormality. ABNORMALNo New Changes Compared to ECG 05/15/2023 Electronically signed on 06/09/2024 at 14:[address] Orlando Almaraz [employer] Software Version 8610 06/09/24 1418 Date Mikhail OVERTON CC: Dr. Ángel Rivera MD Date Dictated: 06/05/241542 Date Transcribed: 06/05/241542 Chinese Herbalist: FREDDIE Signed Normal [facility] Cardiology Visit Reporton Cardiology Visit Report [facility]. [address] [place] [address] OFFICE VISIT Date of Service: 06/05/24 MR#: [id number] Acct: [id number] Name: BRIAN KELLER Rep #: [id number] : 1940 Provider: HERMAN Terrazas Age/Sex: 84/F [place] [facility] Status: Signed Agree with the assessment and plan as outlined. HPI HPI History of Present Illness Details: Brian Keller is an 84-year-old active white female who presents to the office today for follow-up for monitoring her cardiovascular health. She was diagnosed with atrial fibrillation 2022. And her heart rate has been controlled and she has been on oral anticoagulation since that point. We do not know when the patient actually went into atrial fibs. Patient has not been evaluated for DENY. She also has a history of hypertension that she reports has been elevated ever since the atrial fibrillation was diagnosed. Upon presentation to office today, patient reports noticing fatigue with exertion described as needing to take a break when going up a hill in her yard or up her steps. Patient has noticed shortness of breath with 1 flight of stairs in which she has to sit and rest after walking up the stairs. Patient reports exercise intolerance secondary to shortness of breath and has noticed this since last summer. Patient reports she cannot keep up with others like she used to be able to. She reports a chest pain and described as discomfort/tightness. This is mostly noticed at rest. Patient reports bilateral lower extremity edema over the past 1 week. Patient did experience bronchitis last winter and was treated with antibiotics and has had ongoing GI upset with diarrhea since and with associated weight loss. Patient denies orthopnea. Further ROS below Intake Vital Signs 11/22/23 10:51 06/05/24 15:28 Height 5 ft 5 in 5 ft 5 in Weight: 148 lb BMI 24.6 BP 134/90 H Blood Pressure Location Lt brachial Position Sitting Respiration 18 Pulse 117 H Pulse Source NIBP Intake Visit Reasons: 6 M FU Client Project Coordinator Required: No Accompanied by: Self Is patient in pain?: No Allergies No Known Allergies Allergy (Verified 11/22/23 16:12) Medications ???Medication ???Instructions ???Recorded ???Confirmed ???Type Lactobacillus acidophilus 250 100 mmu cells PO DAILY 02/19/18 History million cell capsule (Probiotic Acidophilus) levothyroxine 50 mcg capsule 50 mcg PO DAILY 02/19/18 06/05/24 History multivit,mineral-folic acid 800 1 tab PO DAILY 02/19/18 06/05/24 H istory mcg-vit K 100 mcg-herbal no.289 tablet (Alive Once Daily Women 50 Plus) sucralfate 1 gram tablet 1 g PO QACHS 02/19/18 06/05/24 His tory hydroxychloroquine 200 mg tablet 200 mg PO DAILY 02/21/18 06/05/24 History apixaban 5 mg tablet (Eliquis) 5 mg PO BID 03/22/23 06/05/24 Hist ory losartan 50 mg tablet 100 mg PO DAILY 11/22/23 06/05/24 History metoprolol succinate 50 mg 50 mg PO BID 11/22/23 06/05/24 His tory tablet,extended release 24 hr sertraline 25 mg tablet 25 mg PO QDAY 06/05/24 06/05/24 Hi story furosemide 40 mg tablet (Lasix) 40 mg PO QAM #30 tabs 06/08/24 Rx spironolactone 50 mg tablet 50 mg PO DAILY #90 tabs 06/08/24 0 06/08/24 Rx Ejection fraction %: 55 Have you fallen in the past year?: Yes (no major injuries) PFSH Medical History Hypothyroidism Atrial fibrillation Diarrhea Hypertension Rheumatoid arthritis Thyroid disease Surgical History S/P colonoscopy ( 02/24/18) History of esophagogastroduodenoscopy (EGD) ( 02/24/18) Hx of colonoscopy Family History Mother Arthritis Breast cancer Hypertension Heart disease Father Heart disease High cholesterol Brother Colon cancer Sister Thyroid disorder Social History Smoking Status: Never smoker second hand exposure: No alcohol intake: current alcohol intake frequency: holidays/special occasions only substance use type: does not use caffeine: Yes what type of physical activity do you participate in: walking, aerobics and weight training frequency: 3-4 times per week ROS Const Const: Positive for fatigue and weight loss; Negative for weakness, headache(s) or weight gain ENT ENT: Negative for headache(s), dizziness, Nosebleed/epistaxis or balance problems Cardio Chest Pain: Yes (unsure if GI upset) Frequency: other (episodic) Character: other Onset: at rest Location: mid sternal, left chest and right chest Duration: minutes (10-15) Palpitations: No Edema: Bilateral (BLE; worsened in last few weeks) Muscle ach (more content not included)... Normal [facility] L503.7505on 06-05-2024 Natriuretic peptide B (Bld) [Mass/Vol] 6786 pg/mL High <=1800 [facility] Comment on above: Result Comment: Hear t Failure Unlikely: < 300 pg/mL Heart Failure Likely < 50 Years: > 450 pg/mL 50-75 Years: > 900 pg/mL >75 Years: > 1800 pg/mL Performed By: #### M 100.6769, L7000.0700 #### [facility] [address] [place], [place], [id number] Natriuretic peptide.B prohor soraya N-Terminal [Mass/Vol]Ordered By: Mikhail Fernández on 06-05-2024 Natriuretic peptide B (Bld) [Mass/Vol] 6786 pg/mL High <1800 [facility] Comment on above: Heart Failure Unlike ly: < 300 pg/mLHeart Failure Likely< 50 Years: > 450 pg/mL50-75 Years: > 900 pg/mL>75 Years: > 1800 pg/mL Natriuretic peptide.B prohor soraya N-Terminal [Mass/volume] in Serum or PlasmaOrdered By: Mikhail Fernández on 06-05-2024 Natriuretic peptide.B prohormone N-Terminal [Mass/Vol] 6786 pg/mL High <1800 [facility] Comment on above: Heart Failure Unlike ly: < 300 pg/mLHeart Failure Likely< 50 Years: > 450 pg/mL50-75 Years: > 900 pg/mL>75 Years: > 1800 pg/mL Calprotectin, Stoolon [address] 80 ug/g Normal 0-120 [facility] Comment on above: Result Comment: Conc entration Interpretation Follow-Up < 5 - 50 ug/g Normal None >50 -120 ug/g Borderline Re-evaluate in 4-6 weeks >120 ug/g Abnormal Repeat as clinically indicated Performed at: [facility] [id number] Corporate Safety Manager: Kaylan Lorenzo MD, Phone: [phone] Performed By: #### M 100.7100, L7000.0700 #### [facility] [address] [place], [place], [address] Celiac Disease Profileon ENDOMYSIAL IGA Negative Normal Negative [facility] Comment on above: Performed By: #### M 100.4543, L7000.0700 #### [facility] [address] [place], [place], [address] IMMUNOGLOB A QN 253 mg/dL Normal 64-422 [facility] Comment on above: Result Comment: Perf ormed at: CB - [facility] [address] [id number] Corporate Safety Manager: Alfonso Packer PhD, Phone: [phone] Performed By: #### M [id number], L7000.0700 #### [facility] [address] [place], [place], [address] tTG IGA <2 Normal 0-3 [facility] Comment on above: Result Comment: Nega tive 0 - 3 Weak Positive 4 - 10 Positive >10 Tissue Transglutaminase (tTG) has been identified as the endomysial antigen. Studies have demonstr- ated that endomysial IgA antibodies have over 99% specificity for gluten sensitive enteropathy. Performed By: #### M [id number], L7000.0700 #### [facility] [address] [place], [place], [address] C. difficile DNA EDGARDO+probe Q l (Unsp spec)Ordered By: Alfonso Ruano on 04-23-2024 Clostridioides difficile (PCR) [facility] CDIFF (PCR)on 04-23-2024 CDIFF Pending 027 027 NAP1-B1 Presumptive Negative *for epidemiolologic???use C. Diff PCR Negative- No toxigenic C. Diff Detected Normal [facility] Comment on above: Performed By: #### M 100.7383, L7000.0700 #### [facility] [address] [place], [place], [id number] Calprotectin stoolOrdered By : Alfonso Ruano on 04-23-2024 Calprotectin stool 80 ug/g 0-120 [facility] Comment on above: Concentration Interp retation Follow-Up< 5 - 50 ug/g Normal None>50 -120 ug/g Borderline Re-evaluate in 4-6 weeks >120 ug/g Abnormal Repeat as clinically indicatedPerformed at: - [facility] [address] [id number] Director: Kaylan Lorenzo MD, Phone: [phone] Stool Calprotectin 80 ug/g 0-120 [facility] Comment on above: Concentration Interp retation Follow-Up< 5 - 50 ug/g Normal None>50 -120 ug/g Borderline Re-evaluate in 4-6 weeks >120 ug/g Abnormal Repeat as clinically indicatedPerformed at: BN - [facility] [address] [place], [place] [id number] Director: Kaylan Lorenzo MD, Phone: [phone] Clostridium difficile detect ion by polymerase chain reactionOrdered By: Alfonso Ruano on 04-23-2024 C. difficile DNA EDGARDO+probe Ql (Unsp spec) [facility] CRPon 04-22-2024 C-REACTIVE PROT < 3.00 Normal 0.0-3.0 [facility] Comment on above: Order Comment: PHILIPPE HARRIS WAS GIVEN A STOOL KIT WILL RETURN SAMPLE [id number] WERE DONE Performed By: #### M 100.6796, L7000.0700 #### [facility] [place], [address] CRP [Mass/Vol]Ordered By: Sallie Ruano on 04-22-2024 C-Reactive Protein Extended Range < 3.00 mg/L 0.0-3.0 [facility] Endomysial IgA antibody assa yOrdered By: Alfonso Ruano on 04-22-2024 Endomysial IgA Antibody Negative Negative [facility] IgA [Mass/Vol]Ordered By: Sallie Ruano on 04-22-2024 Immunoglobulin A 253 mg/dL 64-860 [facility] Comment on above: Performed at: [facility] [address] [place], [place] [id number] Director: Alfonso Packer PhD, Phone: [phone] Serum or plasma C reactive p rotein measurement (mass/volume)Ordered By: Alfonso Ruano on 04-22-2024 CRP [Mass/Vol] mg/L 0.0-3.0 [facility] Serum or plasma IgA measurem ent (mass/volume)Ordered By: Alfonso Ruano on 04-22-2024 IgA [Mass/Vol] 253 mg/dL 14-762 [facility] Comment on above: Performed at: [facility] [place], [place] [id number] Director: Alfonso Packer PhD, Phone: [phone] Serum tissue transglutaminas e (tTG) IgA antibody assay (units/volume)Ordered By: Alfonso Ruano on 04-22-2024 tTG IgA Qn (S) <2 U/mL 0-3 [facility] Comment on above: Negative 0 - 3 Weak Positive 4 - 10 Positive >10 Tissue Transglutaminase (tTG) has been identified as the endomysial antigen. Studies have demonstr- ated that endomysial IgA antibodies have over 99% specificity for gluten sensitive enteropathy. tTG IgA Qn (S)Ordered By: Sallie Ruano on 04-22-2024 Tissue Transglutaminase IgA Ab <2 U/mL 0-3 [facility] Comment on above: Negative 0 - 3 Weak Positive 4 - 10 Positive >10 Tissue Transglutaminase (tTG) has been identified as the endomysial antigen. Studies have demonstr- ated that endomysial IgA antibodies have over 99% specificity for gluten sensitive enteropathy. Albumin to globulin ratioOrd ered By: Ángel Rivera on 03-18-2024 Albumin/Globulin [Mass ratio] 1.4 {ratio} 0.9-2.4 [facility] Bilirubin, totalOrdered By: Ángel Rivera on 03-18-2024 Bilirubin [Mass/Vol] 0.60 mg/dL 0.20-1.00 [facility] Comment on above: For patients on eltr ombopag therapy, use of Dimension [place] TBIL is not recommended. Blood urea nitrogen (BUN)/cr eatinine ratioOrdered By: Ángel Rivera on 03-18-2024 Urea nitrogen/Creatinine [Mass ratio] 25.7 mg/mg High 10-20 [facility] Carbon dioxide measurementOr dered By: Ángel Rivera on 03-18-2024 CO2 [Moles/Vol] 26.0 mmol/L 21.0-32.0 [facility] Chloride measurementOrdered By: Ángel Rivera on 03-18-2024 Chloride [Moles/Vol] 101 mmol/L 98-107 [facility] Comprehensive Metabolic Prof ilon 03-18-2024 Albumin [Mass/Vol] 4.0 g/dL Normal 3.2-5.0 [facility] Comment on above: Performed By: #### L 506.0400, L501.9520, L501.03202, L500.4050, L500.4100 #### [facility] [address] [place], [address] Albumin/Globulin [Mass ratio] 1.4 {ratio} Normal 0.9-2.4 [facility] Comment on above: Performed By: #### L 506.0400, L501.9520, L501.34343, L500.4050, L500.4100 #### [facility] [address] [place], [address] ALK P 62 U/L Normal 45-117 [facility] Comment on above: Performed By: #### L 506.0400, L501.9520, L501.45444, L500.4050, L500.4100 #### [facility] [address] [place], [address] ALT [Catalytic activity/Vol] 28 U/L Normal 13-56 [facility] Comment on above: Performed By: #### L 506.0400, L501.9520, L501.92877, L500.4050, L500.4100 #### [facility] [address] [place], [address] AST [Catalytic activity/Vol] 23 U/L Normal 15-37 [facility] Comment on above: Performed By: #### L 506.0400, L501.9520, L501.03523, L500.4050, L500.4100 #### [facility] [address] [place], [address] Bilirubin [Mass/Vol] 0.60 mg/dL Normal 0.20-1.00 [facility] Comment on above: Result Comment: For patients on eltrombopag therapy, use of Dimension [place] TBIL is not recommended. Performed By: #### L 506.0400, L501.9520, L501.62987, L500.4050, L500.4100 #### [facility] [address] [place], [address] BUN/CRE 25.7 RATIO High 10-20 [facility] Comment on above: Performed By: #### L 506.0400, L501.9520, L501.13702, L500.4050, L500.4100 #### [facility] [address] [place], [address] CA,Total 10.1 mg/dL Normal 8.5-10.1 [facility] Comment on above: Performed By: #### L 506.0400, L501.9520, L501.52713, L500.4050, L500.4100 #### [facility] [address] [place], [address] Chloride [Moles/Vol] 101 mmol/L Normal 98-107 [facility] Comment on above: Performed By: #### L 506.0400, L501.9520, L501.49432, L500.4050, L500.4100 #### [facility] [address] [place], [address] CO2 [Moles/Vol] 26.0 mmol/L Normal 21.0-32.0 [facility] Comment on above: Performed By: #### L 506.0400, L501.9520, L501.70528, L500.4050, L500.4100 #### [facility] [address] [place], [address] Creatinine [Mass/Vol] 1.13 mg/dL High 0.55-1.02 [facility] Comment on above: Result Comment: The validity of the calculated GFR GFRAA in patients over 70 years has not been determined. Clinical correlation is essential. Performed By: #### L 506.0400, L501.9520, L501.54882, L500.4050, L500.4100 #### [facility] [address] [place], [address] EST GFR - AA 59 mL/min Low >60 [facility] Comment on above: Result Comment: Afri can Bangladeshi GFR Calc Performed By: #### L 506.0400, L501.9520, L501.19325, L500.4050, L500.4100 #### [facility] [address] [place], [address] GAP 7 Normal 5-15 [facility] Comment on above: Performed By: #### L 506.0400, L501.9520, L501.16494, L500.4050, L500.4100 #### [facility] [address] [place], [address] GFR/1.73 sq M.predicted among non-blacks MDRD (S/P/Bld) [Vol rate/Area] 49 mL/min/{1.73_m2} Low >60 [facility] Comment on above: Result Comment: Non- GFR Calc Performed By: #### L 506.0400, L501.9520, L501.73059, L500.4050, L500.4100 #### [facility] [address] [place], [address] Globulin (S) [Mass/Vol] 2.9 g/dL Normal 2.2-4.2 [facility] Comment on above: Performed By: #### L 506.0400, L501.9520, L501.03412, L500.4050, L500.4100 #### [facility] [address] [place], [address] Glucose [Mass/Vol] 90 mg/dL Normal 74-106 [facility] Comment on above: Performed By: #### L 506.0400, L501.9520, L501.65006, L500.4050, L500.4100 #### [facility] [address] [place], [address] Potassium [Moles/Vol] 4.5 mmol/L Normal 3.5-5.1 [facility] Comment on above: Performed By: #### L 506.0400, L501.9520, L501.27610, L500.4050, L500.4100 #### [facility] [address] [place], [address] Sodium [Moles/Vol] 134 mmol/L Low 136-145 [facility] Comment on above: Performed By: #### L 506.0400, L501.9520, L501.48244, L500.4050, L500.4100 #### [facility] [address] [place], [address] T PROT 6.9 g/dL Normal 6.4-8.2 [facility] Comment on above: Performed By: #### L 506.0400, L501.9520, L501.50257, L500.4050, L500.4100 #### [facility] [address] [place], [address] Urea nitrogen [Mass/Vol] 29 mg/dL High 7-18 [facility] Comment on above: Performed By: #### L 506.0400, L501.9520, L501.22356, L500.4050, L500.4100 #### [facility] [address] [place], [address] Direct serum free thyroxine (FT4) measurementOrdered By: Ángel Rivera on 03-18-2024 Free T4 [Mass/Vol] 1.35 ng/dL 0.76-1.46 [facility] Estimated glomerular filtrat ion rate (GFR) AmericanOrdered By: Ángel Rivera on 03-18-2024 Estimated GFR (MDRD) Amer 59 mL/min Low >60 [facility] Comment on above: GFR Calc Free T3on 03-18-2024 Free T3 [Mass/Vol] 2.4 pg/mL Normal 2.18-3.98 [facility] Comment on above: Performed By: #### M 100.6796, L7000.0700 #### [facility] [address] [place], [place], [address] Free C5Kyddwna By: Ángel potter on 03-18-2024 Free T3 [Mass/Vol] 2.4 pg/mL 2.18-3.98 [facility] Free Triiodothyronine (T3) pg/dL 2.4 pg/mL 2.18-3.98 [facility] Glomerular filtration rate ( GFR) estimationOrdered By: Ángel Rivera on 03-18-2024 Estimated GFR (MDRD) Non-Af Amer 49 mL/min Low >60 [facility] Comment on above: Non- GFR Calc GFR/1.73 sq M.predicted among non-blacks MDRD (S/P/Bld) [Vol rate/Area] 49 mL/min/{1.73_m2} Low >60 [facility] Comment on above: Non- GFR Calc Glucose measurementOrdered B y: Ángel Rivera on 03-18-2024 Glucose [Mass/Vol] 90 mg/dL 74-106 [facility] High density lipoprotein (HD L) measurementOrdered By: Ángel Rivera on 03-18-2024 Cholesterol in HDL [Mass/Vol] 63 mg/dL >40 [facility] Comment on above: The drugs N-Acetylcy steine and Metamizole may falsely depress this assay. Reference Range HDL <40 mg/dL Low HDL Cholesterol HDL >or= 60 mg/dL High HDL Cholesterol Laboratory - Chemistry and C hemistry - challengeOrdered By: Ángel Rivera on 03-18-2024 AST [Catalytic activity/Vol] 23 U/L 15-37 [facility] Lipid Profileon 03-18-2024 Cholesterol [Mass/Vol] 185 mg/dL Normal 200 [facility] Comment on above: Result Comment: <200 mg/dL Desirable 200-240 mg/dL Borderline >240 mg/dL High Risk Performed By: #### L 506.0400, L501.9520, L501.47787, L500.4050, L500.4100 #### [facility] [address] [place], [address] Cholesterol in HDL [Mass/Vol] 63 mg/dL Normal [facility] Comment on above: Result Comment: The drugs N-Acetylcysteine and Metamizole may falsely depress this assay. Reference Range HDL <40 mg/dL Low HDL Cholesterol HDL >or= 60 mg/dL High HDL Cholesterol Performed By: #### L 506.0400, L501.9520, L501.76428, L500.4050, L500.4100 #### [facility] [address] [place], [address] Cholesterol in LDL [Mass/Vol] 89 mg/dL Normal 0-130 [facility] Comment on above: Performed By: #### L 506.0400, L501.9520, L501.30365, L500.4050, L500.4100 #### [facility] [address] [place], [address] Cholesterol in VLDL [Mass/Vol] 33 mg/dL Normal 5-40 [facility] Comment on above: Performed By: #### L 506.0400, L501.9520, L501.87917, L500.4050, L500.4100 #### [facility] [address] [place], [address] Triglyceride [Mass/Vol] 165 mg/dL Normal [facility] Comment on above: Result Comment: The drugs N-Acetylcysteine and Metamizole may falsely depress this assay. Serum Triglycerides Reference Interval Normal <150 mg/dL Borderline high 150 - 199 mg/dL High 200 - 499 mg/dL Very High > or = 500 mg/dL Performed By: #### L 506.0400, L501.9520, L501.06098, L500.4050, L500.4100 #### [facility] [place], [address] Low density lipoprotein (LDL ) cholesterol measurementOrdered By: Ángel Rivera on 03-18-2024 Cholesterol in LDL [Mass/Vol] 89 mg/dL 0-130 [facility] Potassium measurementOrdered By: Ángel Rivera on 03-18-2024 Potassium [Moles/Vol] 4.5 mmol/L 3.5-5.1 [facility] Serum anion gap measurementO rdered By: Ángel Rivera on 03-18-2024 Anion gap [Moles/Vol] 7 mmol/L 5-15 [facility] Serum globulin measurementOr dered By: Ángel Rivera on 03-18-2024 Globulin (S) [Mass/Vol] 2.9 g/dL 2.2-4.2 [facility] Serum or plasma alanine faustin otransferase (ALT) measurementOrdered By: Ángel Rivera on 03-18-2024 ALT [Catalytic activity/Vol] 28 U/L 13-56 [facility] Serum or plasma albumin earnest urement (mass/volume)Ordered By: Ángel Rivera on 03-18-2024 Albumin [Mass/Vol] 4.0 g/dL 3.2-5.0 [facility] Serum or plasma alkaline josefina sphatase measurementOrdered By: Ángel Rivera on 03-18-2024 ALP [Catalytic activity/Vol] 62 U/L 45-117 [facility] Serum or plasma calcium earnest urement (mass/volume)Ordered By: Ángel Rivera on 03-18-2024 Calcium [Mass/Vol] 10.1 mg/dL 8.5-10.1 [facility] Serum or plasma cholesterol measurement (mass/volume)Ordered By: Ángel Rivera on 03-18-2024 Cholesterol [Mass/Vol] 185 mg/dL <200 [facility] Comment on above: <200 mg/dL Desirable 200-240 mg/dL Borderline >240 mg/dL High Risk Serum or plasma creatinine m easurement (mass/volume)Ordered By: Ángel Rivera on 03-18-2024 Creatinine [Mass/Vol] 1.13 mg/dL High 0.55-1.02 [facility] Comment on above: The validity of the calculated GFR & GFRAA in patients over 70 years has not been determined. Clinical correlation is essential. Serum or plasma thyroid stim ulating hormone (TSH) measurement (units/volume)Ordered By: Ángel Rivera on 03-18-2024 TSH Qn 1.530 uIU/mL 0.358-3.740 [facility] Serum or plasma urea nitroge n measurement (mass/volume)Ordered By: Ángel Rivera on 03-18-2024 Urea nitrogen [Mass/Vol] 29 mg/dL High 7-18 [facility] Sodium levelOrdered By: Ángel Rivera on 03-18-2024 Sodium [Moles/Vol] 134 mmol/L Low 136-145 [facility] T4 Free Directon 03-18-2024 T4 FREE DIRECT 1.35 ng/dL Normal 0.76-1.46 [facility] Comment on above: Performed By: #### M 100.6796, L7000.0700 #### [facility] [address] [facility]. [place], [place], [id number] TSH QnOrdered By: Ángel murillo on 03-18-2024 Thyroid Stimulating Hormone (TSH) 1.530 uIU/mL 0.358-3.740 [facility] Thyroid Stim Hormone (TSH)on 03-18-2024 TSH 1.530 uIU/mL Normal 0.358-3.740 [facility] Comment on above: Performed By: #### M 100.6796, L7000.0700 #### [facility] [address] [place], [place], [address] Total proteinOrdered By: Holley Rivera on 03-18-2024 Protein [Mass/Vol] 6.9 g/dL 6.4-8.2 [facility] Triglycerides measurementOrd ered By: Ángel Rivera on 03-18-2024 Triglyceride [Mass/Vol] 165 mg/dL <199 [facility] Comment on above: The drugs N-Acetylcy steine and Metamizole may falsely depress this assay.Serum Triglycerides Reference Interval Normal <150 mg/dL Borderline high 150 - 199 mg/dL High 200 - 499 mg/dL Very High > or = 500 mg/dL Very low density lipoprotein (VLDL) cholesterol measurementOrdered By: Ángel Rivera on 03-18-2024 Very low density lipoprotein (VLDL) cholesterol measurement 33 mg/dL 5-40 [facility] VLDL Cholesterol 33 mg/dL 5-40 [facility] Basic Metabolic Profile (BMP )on 11-22-2023 BUN/CRE 23.8 RATIO High 10-20 [facility] Comment on above: Performed By: #### M 100.6796, L7000.0700 #### [facility] [address] [place], [address] CA,Total 10.5 mg/dL High 8.5-10.1 [facility] Comment on above: Performed By: #### M 100.6796, L7000.0700 #### [facility] [address] [place], [address] Chloride [Moles/Vol] 100 mmol/L Normal 98-107 [facility] Comment on above: Performed By: #### M 100.6796, L7000.0700 #### [facility] [address] [place], [address] CO2 [Moles/Vol] 24.0 mmol/L Normal 21.0-32.0 [facility] Comment on above: Performed By: #### M 100.6796, L7000.0700 #### [facility] [address] [place], [address] Creatinine [Mass/Vol] 0.97 mg/dL Normal 0.55-1.02 [facility] Comment on above: Result Comment: The validity of the calculated GFR GFRAA in patients over 70 years has not been determined. Clinical correlation is essential. Performed By: #### M 100.6796, L7000.0700 #### [facility] [address] [place], [address] EST GFR - AA 70 mL/min Normal >60 [facility] Comment on above: Result Comment: Afri can Bangladeshi GFR Calc Performed By: #### M 100.6796, L7000.0700 #### [facility] [address] [place], [address] GAP 8 Normal 5-15 [facility] Comment on above: Performed By: #### M 100.6796, L7000.0700 #### [facility] [address] [place], [address] GFR/1.73 sq M.predicted among non-blacks MDRD (S/P/Bld) [Vol rate/Area] 58 mL/min/{1.73_m2} Low >60 [facility] Comment on above: Result Comment: Non- GFR Calc Performed By: #### M 100.6796, L7000.0700 #### [facility] [address] [place], [address] Glucose [Mass/Vol] 104 mg/dL Normal 74-106 [facility] Comment on above: Result Comment: Fast ing Glucose result from 100 to 125 mg/dL suggests IMPAIRED HOMEOSTASIS per A.D.A. criteria. Performed By: #### M 100.6796, L7000.0700 #### [facility] [address] [place], [address] Potassium [Moles/Vol] 4.3 mmol/L Normal 3.5-5.1 [facility] Comment on above: Performed By: #### M 100.6796, L7000.0700 #### [facility] [address] [place], [address] Sodium [Moles/Vol] 131 mmol/L Low 136-145 [facility] Comment on above: Performed By: #### M 100.6796, L7000.0700 #### [facility] [address] [place], [address] Urea nitrogen [Mass/Vol] 23 mg/dL High 7-18 [facility] Comment on above: Performed By: #### M 100.6796, L7000.0700 #### [facility] [address] [place], [address] CBC-Complete Blood Cnt No Di ffon 11-22-2023 Erythrocyte distribution width (RBC) [Ratio] 12.7 % Normal 11.6-14.6 [facility] Comment on above: Performed By: #### M 100.6796, L7000.0700 #### [facility] [address] [place], [address] Hematocrit (Bld) [Volume fraction] 39.8 % Normal 37-47 [facility] Comment on above: Performed By: #### M 100.6796, L7000.0700 #### [facility] [address] [place], [address] Hemoglobin (Bld) [Mass/Vol] 13.2 g/dL Normal 12.0-15.0 [facility] Comment on above: Performed By: #### M 100.6796, L7000.0700 #### [facility] [address] [place], [address] MCH (RBC) [Entitic mass] 29.9 pg Normal 27.0-32.0 [facility] Comment on above: Performed By: #### M 100.6796, L7000.0700 #### [facility] [address] [place], [address] MCHC (RBC) [Mass/Vol] 33.2 g/dL Normal 32-36 [facility] Comment on above: Performed By: #### M 100.6796, L7000.0700 #### [facility] [address] [place], [address] MCV (RBC) [Entitic vol] 90.0 fL Normal 81-99 [facility] Comment on above: Performed By: #### M 100.6796, L7000.0700 #### [facility] [address] [place], [address] Platelet mean volume (Bld) [Entitic vol] 9.1 fL Normal 6.2-12.0 [facility] Comment on above: Performed By: #### M 100.6796, L7000.0700 #### [facility] [address] [place], [address] Platelets (Bld) [#/Vol] 328 10*3/uL Normal 150-450 [facility] Comment on above: Performed By: #### M 100.6796, L7000.0700 #### [facility] [address] [place], [address] RBC (Bld) [#/Vol] 4.42 10*6/uL Normal 4.2-5.4 [facility] Comment on above: Performed By: #### M 100.6796, L7000.0700 #### [facility] [address] [place], [address] RDW SD 42.0 fl Normal 35.1-43.9 [facility] Comment on above: Performed By: #### M 100.6796, L7000.0700 #### [facility] [address] [place], [address] WBC (Bld) [#/Vol] 10.2 10*3/uL Normal 4.4-11.0 [facility] Comment on above: Performed By: #### M 100.6796, L7000.0700 #### [facility] [address] [place], [address] Cardiology Visit Reporton Cardiology Visit Report [facility] [address] [place] [address] OFFICE VISIT Date of Service: 11/22/23 MR#: [id number] Acct: [id number] Name: BRIAN KELLER Rep #: [id number] : 1940 Provider: MELISSA koch Age/Sex: 83/F [place] [facility] Status: Signed [facility] History of Present Illness Details: This is a very pleasant 83-year-old active white female who presents to the office today for a cardiovascular visit. She was diagnosed with atrial fibrillation 2022. And her heart rate has been controlled and she has been on oral anticoagulation since that point. We do not know when the patient actually went into atrial fibs. The patient has a history of obstructive sleep apnea that is being evaluated and treated by . She also has a history of hypertension that she reports has been elevated ever since the atrial fibrillation was diagnosed. From a cardiac standpoint, the patient is doing well. She denies any palpitations, chest pain, pressure or heaviness. She does acknowledge occasional SOB and chest pressure with exertion. She denies Orthopnea, and PND. She does not have bleeding issues; no blood in urine, stool or nosebleeds. She does acknowledge a decrease in energy level. She denies myalgias, or claudication. She does not have edema, or sudden weight gain. She does acknowledge occasional lightheadedness. She denies dizziness, syncopal or near syncopal episodes, and headaches. Intake Vital Signs 05/15/23 10:25 11/22/23 10:51 Height 5 ft 5 in 5 ft 5 in Weight: 163 lb BMI 27.1 BP 139/91 H Blood Pressure Location Lt brachial Position Sitting Respiration 18 Pulse 93 Pulse Source Monitor Intake Visit Reasons: 6 M FU Accompanied by: Self Allergies No Known Allergies Allergy (Verified 11/22/23 16:12) Medications ???Medication ???Instructions ???Recorded ???Confirmed ???Type Lactobacillus acidophilus 250 100 mmu cells PO DAILY 02/19/18 11/22/23 History million cell capsule (Probiotic Acidophilus) levothyroxine 50 mcg capsule 50 mcg PO DAILY 02/19/18 11/22/23 History multivit,mineral-folic acid 800 1 tab PO DAILY 02/19/18 11/22/23 History mcg-vit K 100 mcg-herbal no.289 tablet (Alive Once Daily Women 50 Plus) sucralfate 1 gram tablet 1 g PO QACHS 02/19/18 11/22/23 History hydroxychloroquine 200 mg tablet 200 mg PO DAILY 02/21/18 11/22/23 History wheat dextrin 3 gram/3.5 gram oral 1 ea PO DAILY 02/21/18 11/22/23 History powder packet amlodipine 5 mg tablet 5 mg PO DAILY 03/22/23 11/22/23 History apixaban 5 mg tablet (Eliquis) 5 mg PO BID 03/22/23 11/22/23 History spironolactone 25 mg tablet 25 mg PO DAILY #30 tabs 10/15/23 11/22/23 Rx losartan 50 mg tablet 100 mg PO DAILY 11/22/23 11/22/23 History metoprolol succinate 50 mg 50 mg PO BID 11/22/23 11/22/23 History tablet,extended release 24 hr Have you fallen in the past year?: No PFSH Medical History Hypothyroidism Atrial fibrillation Diarrhea Hypertension Rheumatoid arthritis Thyroid disease Surgical History S/P colonoscopy ( 02/24/18) History of esophagogastroduodenoscopy (EGD) ( 02/24/18) Hx of colonoscopy Family History Mother Arthritis Breast cancer Hypertension Heart disease Father Heart disease High cholesterol Brother Colon cancer Sister Thyroid disorder Social History Smoking Status: Never smoker second hand exposure: No alcohol intake: current alcohol intake frequency: holidays/special occasions only substance use type: does not use caffeine: Yes what type of physical activity do you participate in: walking, aerobics and weight training frequency: 3-4 times per week ROS Const Const: Positive for fatigue; Negative for weakness, fever(s), headache(s), chills, frequent falls, weight gain or weight loss Eyes Eyes: Negative for blind spots, loss of peripheral vision, transient loss of vision, blurry vision, change in vision, double vision, floaters or tunnel vision ENT ENT: Negative for headache(s), dizziness, Nosebleed/epistaxis, balance problems or neck pain Cardio Chest Pain: No Palpitations: No Edema: None Muscle aches with walking: None Resp Respiratory: Positive for SOB with activity; Negative for SOB at rest or SOB orthopnea SOB lying down GI GI: Negative nausea, vomiting, heartburn, bloating, vomiting blood/hematemesis, bright, red blood in stools or black,tarry stools Musc Musc: Negative for muscle aches/ myalgia, muscle weakness, joint pain or balance problems Neuro Neuro: Positive for lightheadedness (more content not included)... Normal [facility] Basic Metabolic Profile (BMP )on 09-19-2023 BUN/CRE 21.9 RATIO High 10-20 [facility] Comment on above: Performed By: #### M 100.6796, L7000.0700 #### [facility] [address] [place], [address] CA,Total 9.4 mg/dL Normal 8.5-10.1 [facility] Comment on above: Performed By: #### M 100.6796, L7000.0700 #### [facility] [address] [place], [address] Chloride [Moles/Vol] 97 mmol/L Low 98-107 [facility] Comment on above: Performed By: #### M 100.6796, L7000.0700 #### [facility] [address] [place], [address] CO2 [Moles/Vol] 24.0 mmol/L Normal 21.0-32.0 [facility] Comment on above: Performed By: #### M 100.6796, L7000.0700 #### [facility] [address] [place], [address] Creatinine [Mass/Vol] 1.05 mg/dL High 0.55-1.02 [facility] Comment on above: Result Comment: The validity of the calculated GFR GFRAA in patients over 70 years has not been determined. Clinical correlation is essential. Performed By: #### M 100.6796, L7000.0700 #### [facility] [address] [place], [address] EST GFR - AA 64 mL/min Normal >60 [facility] Comment on above: Result Comment: Afri can Bangladeshi GFR Calc Performed By: #### M 100.6796, L7000.0700 #### [facility] [address] [place], [address] GAP 8 Normal 5-15 [facility] Comment on above: Performed By: #### M 100.6796, L7000.0700 #### [facility] [address] [place], [address] GFR/1.73 sq M.predicted among non-blacks MDRD (S/P/Bld) [Vol rate/Area] 53 mL/min/{1.73_m2} Low >60 [facility] Comment on above: Result Comment: Non- GFR Calc Performed By: #### M 100.6796, L7000.0700 #### [facility] [address] [place], [address] Glucose [Mass/Vol] 88 mg/dL Normal 74-106 [facility] Comment on above: Performed By: #### M 100.6796, L7000.0700 #### [facility] [address] [place], [address] Potassium [Moles/Vol] 4.5 mmol/L Normal 3.5-5.1 [facility] Comment on above: Performed By: #### M 100.6796, L7000.0700 #### [facility] [address] [place], [address] Sodium [Moles/Vol] 129 mmol/L Low 136-145 [facility] Comment on above: Performed By: #### M 100.6796, L7000.0700 #### [facility] [address] [place], [address] Urea nitrogen [Mass/Vol] 23 mg/dL High 7-18 [facility] Comment on above: Performed By: #### M 100.6796, L7000.0700 #### [facility] [address] [place], [address] CBC W/Diff, Automatedon 08-0 8-2023 Absolute Lymph 1.13 X10 3/uL Normal 0.83-4.51 [facility] Comment on above: Performed By: #### M 100.6796, L7000.0700 #### [facility] [address] [place], [address] Absolute Neut 6.7 X10 3/uL Normal 2.0-7.7 [facility] Comment on above: Performed By: #### M 100.6796, L7000.0700 #### [facility] [address] [place], [address] Basophils/100 WBC (Bld) 0.8 % Normal 0-1 [facility] Comment on above: Performed By: #### M 100.6796, L7000.0700 #### [facility] [address] [place], [address] Eosinophils/100 WBC (Bld) 1.2 % Normal 0-5 [facility] Comment on above: Performed By: #### M 100.6796, L7000.0700 #### [facility] [address] [place], [address] Erythrocyte distribution width (RBC) [Ratio] 12.5 % Normal 11.6-14.6 [facility] Comment on above: Performed By: #### M 100.6796, L7000.0700 #### [facility] [address] [place], [address] Hematocrit (Bld) [Volume fraction] 37.9 % Normal 37-47 [facility] Comment on above: Performed By: #### M 100.6796, L7000.0700 #### [facility] [address] [place], [address] Hemoglobin (Bld) [Mass/Vol] 12.4 g/dL Normal 12.0-15.0 [facility] Comment on above: Performed By: #### M 100.6796, L7000.0700 #### [facility] [address] [place], [address] IG% 0.500 Normal 0.0-0.9 [facility] Comment on above: Result Comment: IG% - Immature Granulocytes (promyelocytes, myelocytes and metamyelocytes) > 1% indicates that a LEFT SHIFT is Present. Performed By: #### M 100.6796, L7000.0700 #### [facility] [address] [place], [address] Lymphocytes/100 WBC (Bld) 13.1 % Low 19-41 [facility] Comment on above: Performed By: #### M 100.6796, L7000.0700 #### [facility] [address] [place], [address] MCH (RBC) [Entitic mass] 29.6 pg Normal 27.0-32.0 [facility] Comment on above: Performed By: #### M 100.6796, L7000.0700 #### [facility] [address] [place], [address] MCHC (RBC) [Mass/Vol] 32.7 g/dL Normal 32-36 [facility] Comment on above: Performed By: #### M 100.6796, L7000.0700 #### [facility] [address] [place], [address] MCV (RBC) [Entitic vol] 90.5 fL Normal 81-99 [facility] Comment on above: Performed By: #### M 100.6796, L7000.0700 #### [facility] [address] [place], [address] Monocytes/100 WBC (Bld) 7.1 % Normal 0-10 [facility] Comment on above: Performed By: #### M 100.6796, L7000.0700 #### [facility] [address] [place], [address] Neutrophils/100 WBC (Bld) 77.3 % High 47-70 [facility] Comment on above: Performed By: #### M 100.6796, L7000.0700 #### [facility] [address] [place], [address] Nucleated RBC (Bld) [#/Vol] 0 10*3/uL Normal 0-5 [facility] Comment on above: Performed By: #### M 100.6796, L7000.0700 #### [facility] [address] [place], [address] Platelet mean volume (Bld) [Entitic vol] 9.7 fL Normal 6.2-12.0 [facility] Comment on above: Performed By: #### M 100.6796, L7000.0700 #### [facility] [address] [place], [address] Platelets (Bld) [#/Vol] 271 10*3/uL Normal 150-450 [facility] Comment on above: Performed By: #### M 100.6796, L7000.0700 #### [facility] [address] [place], [address] RBC (Bld) [#/Vol] 4.19 10*6/uL Low 4.2-5.4 [facility] Comment on above: Performed By: #### M 100.6796, L7000.0700 #### [facility] [address] [place], [address] RDW SD 41.4 fl Normal 35.1-43.9 [facility] Comment on above: Performed By: #### M 100.6796, L7000.0700 #### [facility] [address] [place], [address] WBC (Bld) [#/Vol] 8.6 10*3/uL Normal 4.4-11.0 [facility] Comment on above: Performed By: #### M 100.6796, L7000.0700 #### [facility] [address] [place], [address] Free T3on 09-19-2023 Free T3 [Mass/Vol] 2.2 pg/mL Normal 2.18-3.98 [facility] Comment on above: Performed By: #### L 501.9520, L100.0100, L501.57159, L506.0400, L500.2500, L500.4100 ####[facility] [address] [place], [address] Lipid Profileon 09-19-2023 Cholesterol [Mass/Vol] 175 mg/dL Normal 200 [facility] Comment on above: Result Comment: <200 mg/dL Desirable 200-240 mg/dL Borderline >240 mg/dL High Risk Performed By: #### L 501.9520, L100.0100, L501.31463, L506.0400, L500.2500, L500.4100 ####[facility] [address] [place], [address] Cholesterol in HDL [Mass/Vol] 58 mg/dL Normal [facility] Comment on above: Result Comment: The drugs N-Acetylcysteine and Metamizole may falsely depress this assay. Reference Range HDL <40 mg/dL Low HDL Cholesterol HDL >or= 60 mg/dL High HDL Cholesterol Performed By: #### L 501.9520, L100.0100, L501.10402, L506.0400, L500.2500, L500.4100 ####[facility] [address] [place], [address] Cholesterol in LDL [Mass/Vol] 81 mg/dL Normal 0-130 [facility] Comment on above: Performed By: #### L 501.9520, L100.0100, L501.03895, L506.0400, L500.2500, L500.4100 ####[facility] [address] [place], [address] Cholesterol in VLDL [Mass/Vol] 36 mg/dL Normal 5-40 [facility] Comment on above: Performed By: #### L 501.9520, L100.0100, L501.31608, L506.0400, L500.2500, L500.4100 ####[facility] [address] [place], [address] Triglyceride [Mass/Vol] 182 mg/dL Normal [facility] Comment on above: Result Comment: The drugs N-Acetylcysteine and Metamizole may falsely depress this assay. Serum Triglycerides Reference Interval Normal <150 mg/dL Borderline high 150 - 199 mg/dL High 200 - 499 mg/dL Very High > or = 500 mg/dL Performed By: #### L 501.9520, L100.0100, L501.88531, L506.0400, L500.2500, L500.4100 ####[facility] [address] [place], [address] T4 Free Directon 09-19-2023 T4 FREE DIRECT 1.26 ng/dL Normal 0.76-1.46 [facility] Comment on above: Performed By: #### L 501.9520, L100.0100, L501.25947, L506.0400, L500.2500, L500.4100 ####[facility] [address] [place], [address] Thyroid Stim Hormone (TSH)on 09-19-2023 TSH 2.27 uIU/mL Normal 0.358-3.74 [facility] Comment on above: Performed By: #### L 501.9520, L100.0100, L501.18565, L506.0400, L500.2500, L500.4100 ####[facility] [address] [place], [address] Basophil percentageOrdered B y: Orlando Almaraz on 04-24-2023 Chloride [Moles/Vol] 102 mmol/L 98-107 [facility] Glucose [Mass/Vol] 86 mg/dL 74-106 [facility] Potassium [Moles/Vol] 4.3 mmol/L 3.5-5.1 [facility] Sodium [Moles/Vol] 137 mmol/L 136-145 [facility] - Chemistry and C hemistry - challengeOrdered By: Orlando Almaraz on 04-24-2023 CO2 [Moles/Vol] 28.0 mmol/L 21.0-32.0 [facility] Urea nitrogen/Creatinine [Mass ratio] 24.5 mg/mg 10-20 [facility] No Panel InformationOrdered By: Orlando Almaraz on 04-24-2023 Estimated GFR (MDRD) Amer 73 mL/min >60 [facility] Comment on above: GFR Calc Estimated GFR (MDRD) Non-Af Amer 60 mL/min >60 [facility] Comment on above: Non- GFR Calc Serum or plasma calcium earnest urement (mass/volume)Ordered By: Orlando Almaraz on 04-24-2023 Calcium [Mass/Vol] 9.9 mg/dL 8.5-10.1 [facility] Serum or plasma creatinine m easurement (mass/volume)Ordered By: Orlando Almaraz on 04-24-2023 Creatinine [Mass/Vol] 0.94 mg/dL 0.55-1.02 [facility] Comment on above: The validity of the calculated GFR & GFRAA in patients over 70 years has not been determined. Clinical correlation is essential. Serum or plasma urea nitroge n measurement (mass/volume)Ordered By: Orlando Almaraz on 04-24-2023 Urea nitrogen [Mass/Vol] 23 mg/dL 7-18 [facility] Thin prep Papanicolaou smear with manual screeningOrdered By: Orlando Almaraz on 04-24-2023 Thin prep Papanicolaou smear with manual screening 7 5-15 [facility] Basophil percentageOrdered B y: Orlando Almaraz on 04-17-2023 Chloride [Moles/Vol] 98 mmol/L 98-107 [facility] Glucose [Mass/Vol] 89 mg/dL 74-106 [facility] Potassium [Moles/Vol] 4.1 mmol/L 3.5-5.1 [facility] Sodium [Moles/Vol] 132 mmol/L 136-145 [facility] Laboratory - Chemistry and C hemistry - challengeOrdered By: Orlando Almaraz on 04-17-2023 CO2 [Moles/Vol] 28.0 mmol/L 21.0-32.0 [facility] Urea nitrogen/Creatinine [Mass ratio] 33.0 mg/mg 10-20 [facility] No Panel InformationOrdered By: Orlando Almaraz on 04-17-2023 Estimated GFR (MDRD) Amer 68 mL/min >60 [facility] Comment on above: GFR Calc Estimated GFR (MDRD) Non-Af Amer 56 mL/min >60 [facility] Comment on above: Non- GFR Calc Serum or plasma calcium earnest urement (mass/volume)Ordered By: Orlando Almaraz on 04-17-2023 Calcium [Mass/Vol] 9.6 mg/dL 8.5-10.1 [facility] Serum or plasma creatinine m easurement (mass/volume)Ordered By: Orlando Almaraz on 04-17-2023 Creatinine [Mass/Vol] 1.00 mg/dL 0.55-1.02 [facility] Comment on above: The validity of the calculated GFR & GFRAA in patients over 70 years has not been determined. Clinical correlation is essential. Serum or plasma urea nitroge n measurement (mass/volume)Ordered By: Orlando Almaraz on 04-17-2023 Urea nitrogen [Mass/Vol] 33 mg/dL 7-18 [facility] Thin prep Papanicolaou smear with manual screeningOrdered By: Orlando Almaraz on 04-17-2023 Thin prep Papanicolaou smear with manual screening 6 5-15 [facility] Basophil percentageOrdered B y: Ángel Rivera on 03-06-2023 Chloride [Moles/Vol] 103 mmol/L 98-107 [facility] Cholesterol [Mass/Vol] 192 mg/dL <200 [facility] Comment on above: <200 mg/dL Desirable 200-240 mg/dL Borderline >240 mg/dL High Risk Glucose [Mass/Vol] 85 mg/dL 74-106 [facility] Potassium [Moles/Vol] 4.2 mmol/L 3.5-5.1 [facility] Comment on above: Slight Hemolysis, Re sult may be falsely increased. Sodium [Moles/Vol] 134 mmol/L 136-145 [facility] Triglyceride [Mass/Vol] 153 mg/dL <199 [facility] Comment on above: The drugs N-Acetylcy steine and Metamizole may falsely depress this assay.Serum Triglycerides Reference Interval Normal <150 mg/dL Borderline high 150 - 199 mg/dL High 200 - 499 mg/dL Very High > or = 500 mg/dL High density lipoprotein (HD L) measurementOrdered By: Ángel Rivera on 03-06-2023 Cholesterol in HDL (Body fld) [Mass/Vol] 66 mg/dL >40 [facility] Comment on above: The drugs N-Acetylcy steine and Metamizole may falsely depress this assay. Reference Range HDL <40 mg/dL Low HDL Cholesterol HDL >or= 60 mg/dL High HDL Cholesterol Laboratory - Chemistry and C hemistry - challengeOrdered By: Ángel Rivera on 03-06-2023 CO2 [Moles/Vol] 25.0 mmol/L 21.0-32.0 [facility] Urea nitrogen/Creatinine [Mass ratio] 21.5 mg/mg 10-20 [facility] Low density lipoprotein (LDL ) cholesterol measurementOrdered By: Ángel Rivera on 03-06-2023 Cholesterol in LDL (Body fld) [Moles/Vol] 95 mg/dL 0-130 [facility] No Panel InformationOrdered By: Ángel Rivera on 03-06-2023 Estimated GFR (MDRD) Amer 78 mL/min >60 [facility] Comment on above: GFR Calc Estimated GFR (MDRD) Non-Af Amer 65 mL/min >60 [facility] Comment on above: Non- GFR Calc Free Triiodothyronine (T3) pg/dL 2.6 pg/mL 2.18-3.98 [facility] Serum or plasma calcium earnest urement (mass/volume)Ordered By: Ángel Rivera on 03-06-2023 Calcium [Mass/Vol] 9.8 mg/dL 8.5-10.1 [facility] Serum or plasma creatinine m easurement (mass/volume)Ordered By: Ángel Rivera on 03-06-2023 Creatinine [Mass/Vol] 0.88 mg/dL 0.55-1.02 [facility] Comment on above: The validity of the calculated GFR & GFRAA in patients over 70 years has not been determined. Clinical correlation is essential. Serum or plasma thyroid stim ulating hormone (TSH) measurement (units/volume)Ordered By: Ángel Rivera on 03-06-2023 TSH Qn 2.70 uIU/mL 0.358-3.74 [facility] Serum or plasma urea nitroge n measurement (mass/volume)Ordered By: Ángel Rivera on 03-06-2023 Urea nitrogen [Mass/Vol] 19 mg/dL 7-18 [facility] Thin prep Papanicolaou smear with manual screeningOrdered By: Ángel Rivera on 03-06-2023 Thin prep Papanicolaou smear with manual screening 6 5-15 [facility] Thin prep Papanicolaou smear with manual screening 1.46 ng/dL 0.76-1.46 [facility] Very low density lipoprotein (VLDL) cholesterol measurementOrdered By: Ángel Rivera on 03-06-2023 Cholesterol in VLDL Calc [Moles/Vol] 31 mg/dL 5-40 [facility] Basophil percentageOrdered B y: Ángel Rivera on 02-05-2023 Bilirubin [Mass/Vol] 0.60 mg/dL 0.20-1.00 [facility] Comment on above: For patients on eltr ombopag therapy, use of Dimension [place] TBIL is not recommended. Chloride [Moles/Vol] 104 mmol/L 98-107 [facility] Glucose [Mass/Vol] 105 mg/dL 74-106 [facility] Comment on above: Fasting Glucose resu lt from 100 to 125 mg/dL suggests IMPAIRED HOMEOSTASIS per A.D.A. criteria. Potassium [Moles/Vol] 3.8 mmol/L 3.5-5.1 [facility] Protein [Mass/Vol] 7.7 g/dL 6.4-8.2 [facility] Sodium [Moles/Vol] 138 mmol/L 136-145 [facility] WBC (Bld) [#/Vol] 9.5 10*3/uL 4.4-11.0 [facility] Blood erythrocytes count (nu mber/volume)Ordered By: Ángel Rivera on 02-05-2023 RBC (Bld) [#/Vol] 4.52 10*6/uL 4.2-5.4 [facility] Blood hemoglobin measurement (mass/volume)Ordered By: Ángel Rivera on 02-05-2023 Hemoglobin (Bld) [Mass/Vol] 13.2 g/dL 12.0-15.0 [facility] Blood platelet mean volumeOr dered By: Ángel Rivera on 02-05-2023 Platelet mean volume (Bld) [Entitic vol] 9.6 fL 6.2-12.0 [facility] Determination of erythrocyte mean corpuscular volume (MCV)Ordered By: Ángel Rivera on 02-05-2023 MCV (RBC) [Entitic vol] 91.4 fL 81-99 [facility] Hematocrit Auto (Bld) [Volum e fraction]Ordered By: Ángel Rivera on 02-05-2023 Hematocrit (Bld) [Volume fraction] 41.3 % 37-47 [facility] Laboratory - Chemistry and C hemistry - challengeOrdered By: Ángel Rivera on 02-05-2023 ALP [Catalytic activity/Vol] 68 U/L 45-117 [facility] ALT [Catalytic activity/Vol] 26 U/L 13-56 [facility] CO2 [Moles/Vol] 28.0 mmol/L 21.0-32.0 [facility] Globulin (S) [Mass/Vol] 3.4 g/dL 2.2-4.2 [facility] Urea nitrogen/Creatinine [Mass ratio] 19.7 mg/mg 10-20 [facility] Laboratory - Hematology and Cell countsOrdered By: Ángel Rivera on 02-05-2023 Erythrocyte distribution width (RBC) [Entitic vol] 43.2 fL 35.1-43.9 [facility] Erythrocyte distribution width (RBC) [Ratio] 12.9 % 11.6-14.6 [facility] MCH (RBC) [Entitic mass] 29.2 pg 27.0-32.0 [facility] MCHC Auto (RBC) [Mass/Vol]Or dered By: Ángel Rivera on 02-05-2023 MCHC (RBC) [Mass/Vol] 32.0 g/dL 32-36 [facility] No Panel InformationOrdered By: Ángel Rivera on 02-05-2023 Estimated GFR (MDRD) Amer 75 mL/min >60 [facility] Comment on above: GFR Calc Estimated GFR (MDRD) Non-Af Amer 62 mL/min >60 [facility] Comment on above: Non- GFR Calc Thyroid Stimulating Hormone (TSH) 2.26 uIU/mL 0.358-3.74 [facility] Vitamin D 25-Hydroxy 51.6 ng/mL [facility] Comment on above: Vitamin D 25(OH) Sta tus Range Deficiency <20 ng/mL (50nmol/L) Insufficiency 20 - 30 ng/mL (50 - 75 nmol/L) Sufficiency 30 - 100 ng/mL (75 - 250 nmol/L) Toxicity >100 ng/mL (>250 nmol/L) Platelets bldOrdered By: Holley Rivera on 02-05-2023 Platelets (Bld) [#/Vol] 308 10*3/uL 150-450 [facility] Serum or plasma albumin earnest urement (mass/volume)Ordered By: Ángel Rivera on 02-05-2023 Albumin [Mass/Vol] 4.3 g/dL 3.2-5.0 [facility] Serum or plasma albumin/glob ulin mass ratioOrdered By: Ángel Rivera on 02-05-2023 Albumin/Globulin [Mass ratio] 1.3 {ratio} 0.9-2.4 [facility] Serum or plasma calcium earnest urement (mass/volume)Ordered By: Ángel Rivera on 02-05-2023 Calcium [Mass/Vol] 10.1 mg/dL 8.5-10.1 [facility] Serum or plasma creatinine m easurement (mass/volume)Ordered By: Ángel Rivera on 02-05-2023 Creatinine [Mass/Vol] 0.91 mg/dL 0.55-1.02 [facility] Comment on above: The validity of the calculated GFR & GFRAA in patients over 70 years has not been determined. Clinical correlation is essential. Serum or plasma urea nitroge n measurement (mass/volume)Ordered By: Ángel Rivera on 02-05-2023 Urea nitrogen [Mass/Vol] 18 mg/dL 7-18 [facility] Thin prep Papanicolaou smear with manual screeningOrdered By: Ángel Rivera on 02-05-2023 Thin prep Papanicolaou smear with manual screening 24 U/L 15-37 [facility] Thin prep Papanicolaou smear with manual screening 6 5-15 [facility] Basophil percentageOrdered B y: Ángel Rivera on 09-21-2022 Chloride [Moles/Vol] 105 mmol/L 98-107 [facility] Cholesterol [Mass/Vol] 224 mg/dL <200 [facility] Comment on above: <200 mg/dL Desirable 200-240 mg/dL Borderline >240 mg/dL High Risk Glucose [Mass/Vol] 87 mg/dL 74-106 [facility] Potassium [Moles/Vol] 4.1 mmol/L 3.5-5.1 [facility] Sodium [Moles/Vol] 137 mmol/L 136-145 [facility] Triglyceride [Mass/Vol] 182 mg/dL <199 [facility] Comment on above: The drugs N-Acetylcy steine and Metamizole may falsely depress this assay.Serum Triglycerides Reference Interval Normal <150 mg/dL Borderline high 150 - 199 mg/dL High 200 - 499 mg/dL Very High > or = 500 mg/dL Laboratory - Chemistry and C hemistry - challengeOrdered By: Ángel Rivera on 09-21-2022 CO2 [Moles/Vol] 29.0 mmol/L 21.0-32.0 [facility] Free T4 [Mass/Vol] 1.20 ng/dL 0.76-1.46 [facility] Urea nitrogen/Creatinine [Mass ratio] 26.3 mg/mg 10-20 [facility] No Panel InformationOrdered By: Ángel Rivera on 09-21-2022 Estimated GFR (MDRD) Amer 84 mL/min >60 [facility] Comment on above: GFR Calc Estimated GFR (MDRD) Non-Af Amer 69 mL/min >60 [facility] Comment on above: Non- GFR Calc Free Triiodothyronine (T3) pg/dL 2.6 pg/mL 2.18-3.98 [facility] Thyroid Stimulating Hormone (TSH) 1.69 uIU/mL 0.358-3.74 [facility] Serum or plasma calcium earnest urement (mass/volume)Ordered By: Ángel Rivera on 09-21-2022 Calcium [Mass/Vol] 9.7 mg/dL 8.5-10.1 [facility] Serum or plasma cholesterol in HDL measurement (mass/volume)Ordered By: Ángel Rivera on 09-21-2022 Cholesterol in HDL [Mass/Vol] 67 mg/dL >40 [facility] Comment on above: The drugs N-Acetylcy steine and Metamizole may falsely depress this assay. Reference Range HDL <40 mg/dL Low HDL Cholesterol HDL >or= 60 mg/dL High HDL Cholesterol Serum or plasma cholesterol in VLDL measurement (mass/volume)Ordered By: Ángel Rivera on 09-21-2022 Cholesterol in VLDL [Mass/Vol] 36 mg/dL 5-40 [facility] Serum or plasma creatinine m easurement (mass/volume)Ordered By: Ángel Rivera on 09-21-2022 Creatinine [Mass/Vol] 0.84 mg/dL 0.55-1.02 [facility] Comment on above: The validity of the calculated GFR & GFRAA in patients over 70 years has not been determined. Clinical correlation is essential. Serum or plasma low density lipoprotein (LDL) cholesterol measurement (mass/volume)Ordered By: Ángel Rivera on 09-21-2022 Cholesterol in LDL [Mass/Vol] 121 mg/dL 0-130 [facility] Serum or plasma urea nitroge n measurement (mass/volume)Ordered By: Ángel Rivera on 09-21-2022 Urea nitrogen [Mass/Vol] 22 mg/dL 7-18 [facility] Thin prep Papanicolaou smear with manual screeningOrdered By: Ángel Rivera on 09-21-2022 Thin prep Papanicolaou smear with manual screening 3 5-15 [facility] Basophil percentageOrdered B y: Dr. Rivera on 03-21-2022 Chloride [Moles/Vol] 101 mmol/L 98-107 [facility] Cholesterol [Mass/Vol] 214 mg/dL <200 [facility] Comment on above: <200 mg/dL Desirable 200-240 mg/dL Borderline >240 mg/dL High Risk Glucose [Mass/Vol] 93 mg/dL 74-106 [facility] Potassium [Moles/Vol] 4.2 mmol/L 3.5-5.1 [facility] Sodium [Moles/Vol] 136 mmol/L 136-145 [facility] Triglyceride [Mass/Vol] 133 mg/dL <199 [facility] Comment on above: The drugs N-Acetylcy steine and Metamizole may falsely depress this assay.Serum Triglycerides Reference Interval Normal <150 mg/dL Borderline high 150 - 199 mg/dL High 200 - 499 mg/dL Very High > or = 500 mg/dL Laboratory - Chemistry and C hemistry - challengeOrdered By: Dr. Rivera on 03-21-2022 CO2 [Moles/Vol] 28.0 mmol/L 21.0-32.0 [facility] Free T4 [Mass/Vol] 1.45 ng/dL 0.76-1.46 [facility] Urea nitrogen/Creatinine [Mass ratio] 23.5 mg/mg 10-20 [facility] No Panel InformationOrdered By: Dr. Rivera on 03-21-2022 Estimated GFR (MDRD) Amer 87 mL/min >60 [facility] Comment on above: GFR Calc Estimated GFR (MDRD) Non-Af Amer 72 mL/min >60 [facility] Comment on above: Non- GFR Calc Free Triiodothyronine (T3) pg/dL 2.3 pg/mL 2.18-3.98 [facility] Thyroid Stimulating Hormone (TSH) 1.49 uIU/mL 0.358-3.74 [facility] Serum or plasma calcium earnest urement (mass/volume)Ordered By: Dr. Rivera on 03-21-2022 Calcium [Mass/Vol] 9.9 mg/dL 8.5-10.1 [facility] Serum or plasma cholesterol in HDL measurement (mass/volume)Ordered By: Dr. Rivera on 03-21-2022 Cholesterol in HDL [Mass/Vol] 72 mg/dL >40 [facility] Comment on above: The drugs N-Acetylcy steine and Metamizole may falsely depress this assay. Reference Range HDL <40 mg/dL Low HDL Cholesterol HDL >or= 60 mg/dL High HDL Cholesterol Serum or plasma cholesterol in VLDL measurement (mass/volume)Ordered By: Dr. Rivera on 03-21-2022 Cholesterol in VLDL [Mass/Vol] 27 mg/dL 5-40 [facility] Serum or plasma creatinine m easurement (mass/volume)Ordered By: Dr. Rivera on 03-21-2022 Creatinine [Mass/Vol] 0.81 mg/dL 0.55-1.02 [facility] Comment on above: The validity of the calculated GFR & GFRAA in patients over 70 years has not been determined. Clinical correlation is essential. Serum or plasma low density lipoprotein (LDL) cholesterol measurement (mass/volume)Ordered By: Dr. Rivera on 03-21-2022 Cholesterol in LDL [Mass/Vol] 115 mg/dL 0-130 [facility] Serum or plasma urea nitroge n measurement (mass/volume)Ordered By: Dr. Rivera on 03-21-2022 Urea nitrogen [Mass/Vol] 19 mg/dL 7-18 [facility] Thin prep Papanicolaou smear with manual screeningOrdered By: Dr. Rivera on 03-21-2022 Thin prep Papanicolaou smear with manual screening 7 5-15 [facility] Basophil percentageon 2021 Chloride [Moles/Vol] 102 mmol/L 98-107 [facility] Work Phone: Cholesterol [Mass/Vol] 217 mg/dL <200 [facility] Work Phone: Comment on above: <200 mg/dL Desirable 200-240 mg/dL Borderline >240 mg/dL High Risk Glucose [Mass/Vol] 87 mg/dL 74-106 [facility] Work Phone: Potassium [Moles/Vol] 4.0 mmol/L 3.5-5.1 [facility] Work Phone: Sodium [Moles/Vol] 134 mmol/L 136-145 [facility] Work Phone: Triglyceride [Mass/Vol] 155 mg/dL <199 [facility] Work Phone: Comment on above: The drugs N-Acetylcy steine and Metamizole may falsely depress this assay.Serum Triglycerides Reference Interval Normal <150 mg/dL Borderline high 150 - 199 mg/dL High 200 - 499 mg/dL Very High > or = 500 mg/dL Laboratory - Chemistry and C hemistry - challengeon 09-13-2021 CO2 [Moles/Vol] 26.0 mmol/L 21.0-32.0 [facility] Work Phone: Free T4 [Mass/Vol] 1.27 ng/dL 0.76-1.46 [facility] Work Phone: Urea nitrogen/Creatinine [Mass ratio] 20.4 mg/mg 10-20 [facility] Work Phone: No Panel Informationon 09-13 Estimated GFR (MDRD) Amer 78 mL/min >60 [facility] Work Phone: Comment on above: GFR Calc Estimated GFR (MDRD) Non-Af Amer 65 mL/min >60 [facility] Work Phone: Comment on above: Non- GFR Calc Free Triiodothyronine (T3) pg/dL 2.6 pg/mL 2.18-3.98 [facility] Work Phone: Thyroid Stimulating Hormone (TSH) 1.39 uIU/mL 0.358-3.74 [facility] Work Phone: Serum or plasma calcium earnest urement (mass/volume)on 09-13-2021 Calcium [Mass/Vol] 9.9 mg/dL 8.5-10.1 [facility] Work Phone: Serum or plasma cholesterol in HDL measurement (mass/volume)on 09-13-2021 Cholesterol in HDL [Mass/Vol] 62 mg/dL >40 [facility] Work Phone: Comment on above: The drugs N-Acetylcy steine and Metamizole may falsely depress this assay. Reference Range HDL <40 mg/dL Low HDL Cholesterol HDL >or= 60 mg/dL High HDL Cholesterol Serum or plasma cholesterol in VLDL measurement (mass/volume)on 09-13-2021 Cholesterol in VLDL [Mass/Vol] 31 mg/dL 5-40 [facility] Work Phone: Serum or plasma creatinine m easurement (mass/volume)on 09-13-2021 Creatinine [Mass/Vol] 0.88 mg/dL 0.55-1.02 [facility] Work Phone: Comment on above: The validity of the calculated GFR & GFRAA in patients over 70 years has not been determined. Clinical correlation is essential. Serum or plasma low density lipoprotein (LDL) cholesterol measurement (mass/volume)on 09-13-2021 Cholesterol in LDL [Mass/Vol] 124 mg/dL 0-130 [facility] Work Phone: Serum or plasma urea nitroge n measurement (mass/volume)on 09-13-2021 Urea nitrogen [Mass/Vol] 18 mg/dL 7-18 [facility] Work Phone: Thin prep Papanicolaou smear with manual screeningon 09-13-2021 Thin prep Papanicolaou smear with manual screening 6 5-15 [facility] Work Phone: Vital Signs Date Time Vital Sign Value Performing Clinician Faci lity 07-01-2024 06:51-0400 Body mass index (BMI) [Ratio] 22.4 kg/m2 Dr. Ángel Rivera MD Work Phone: [facility] 07-01-2024 06:51-0400 Body weight 61.[address] Ángel Rivera MD Work Phone: [facility] 07-01-2024 06:51-0400 Diastolic blood pressure 86 mm[Hg] Dr. Ángel Rivera MD Work Phone: [facility] 07-01-2024 06:51-0400 Heart rate 98 /min Dr. Ángel Rivera MD Work Phone: [facility] 07-01-2024 06:51-0400 Respiratory rate 18 /min Dr. Ángel Rivera MD Work Phone: [phone] [place] [address] 07-01-2024 06:51-0400 Systolic blood pressure 136 mm[Hg] Dr. Ángel Rivera MD Work Phone: 0(757)630-391031 [address] [place] [address] 06-05-2024 15:28-0400 Body height 165.[address] Ángel Rivera MD Work Phone: [phone] [address] [address] 06-05-2024 15:28-0400 Body mass index (BMI) [Ratio] 24.6 kg/m2 Dr. Ángel Rivera MD Work Phone: [phone])154-089531 [address] [place] [address] 06-05-2024 15:28-0400 Body weight 67.[address] Ángel Rivera MD Work Phone: [phone])611-227031 [address] [place] [address] 06-05-2024 15:28-0400 Diastolic blood pressure 90 mm[Hg] Dr. Ángel Rivera MD Work Phone: 6([phone])695-352231 [address] [place] [address] 06-05-2024 15:28-0400 Heart rate 117 /min Dr. Ángel Rivera MD Work Phone: 9(244)819-168531 [address] [place] [address] 06-05-2024 15:28-0400 Respiratory rate 18 /min Dr. Ángel Rivera MD Work Phone: [phone] [address] [place] [address] 06-05-2024 15:28-0400 Systolic blood pressure 134 mm[Hg] Dr. Ángel Rivera MD Work Phone: 7(168)874-992237 [place] [address] 05-15-2023 10:25-0400 Body height 165.[address] Ángel Rivera Work Phone: 4([phone])688-000231 [address] [address] 05-15-2023 10:25-0400 Body mass index (BMI) [Ratio] 27.4 kg/m2 Dr. Ángel Rivera Work Phone: 4(954)357-524031 [address] [address] 05-15-2023 10:25-0400 Body weight 74.[address] Ángel Rivera Work Phone: 0([phone])958-661131 [address] [place] [address] 05-15-2023 10:25-0400 Diastolic blood pressure 82 mm[Hg] Dr. Ángel Rivera Work Phone: [facility] 05-15-2023 10:25-0400 Heart rate 94 /min Dr. Ángel Rivera Work Phone: [facility] 05-15-2023 10:25-0400 Respiratory rate 18 /min Dr. Ángel Rivera Work Phone: [facility] 05-15-2023 10:25-0400 Systolic blood pressure 144 mm[Hg] Dr. Ángel Rivera Work Phone: [facility] 04-24-2023 10:14-0400 Diastolic blood pressure 64 mm[Hg] Dr. Ángel Rivera Work Phone: [facility] 04-24-2023 10:14-0400 Heart rate 90 /min Dr. Ángel Rivera Work Phone: [facility] 04-24-2023 10:14-0400 Respiratory rate 16 /min Dr. Ángel Rivera Work Phone: [facility] 04-24-2023 10:14-0400 Systolic blood pressure 144 mm[Hg] Dr. Ángel Rivera Work Phone: [facility] 04-10-2023 12:55-0500 Body height 165.[address] Ángel Rivera Work Phone: [facility] 04-10-2023 12:55-0500 Body mass index (BMI) [Ratio] 27.3 kg/m2 Dr. Ángel Rivera Work Phone: [facility] 04-10-2023 12:55-0500 Body weight 74.[address] Ángel Rivera Work Phone: [facility] 04-10-2023 12:55-0500 Diastolic blood pressure 98 mm[Hg] Dr. Ángel Rivera Work Phone: [facility] 04-10-2023 12:55-0500 Heart rate 86 /min Dr. Ángel Rivera Work Phone: [facility] 04-10-2023 12:55-0500 Respiratory rate 18 /min Dr. Ángel Rivera Work Phone: [facility] 04-10-2023 12:55-0500 Systolic blood pressure 155 mm[Hg] Dr. Ángel Rivera Work Phone: [facility] Encounters Encounter Date Encounter Type Care Provider Facility Start: 07-14-2024 ambulatory Ángel Rivera Facility:[facility] Start: 07-02-2024 Non-patient / Non-visit Dr. Reba ROB -[facility] Start: 07-02-2024 End: 07-02-[address] Ángel Rivera MD Work Phone: [facility] Work Phone: Start: 07-02-2024 End: 07-02-2024 Patient encounter procedure Mikhail Demiter PA -[facility] Work Phone: Start: 07-01-2024 End: 07-01-2024 Patient encounter procedure Mikhail Demiter PA -[facility] Work Phone: Start: 07-01-2024 End: 07-02-[address] Ángel Rivera MD Work Phone: [facility] Work Phone: Start: 06-16-2024 End: 06-16-[address] Ángel Rivera MD Work Phone: [facility] Work Phone: Start: 06-16-2024 End: 06-16-2024 Patient encounter procedure Mikhail Demiter PA -Laboratory Work Phone: Start: 06-16-2024 End: 06-16-2024 ambulatory Ángel Rivera Facility:[facility] Start: 06-05-2024 End: 06-05-[address] Ángel Rivera MD Work Phone: [facility] Work Phone: Start: 06-05-2024 End: 06-05-2024 Patient encounter procedure Mikhail Demiter PA -Laboratory Work Phone: Start: 06-05-2024 End: 06-05-2024 ambulatory Ángel Rivera Facility:[facility] Start: 06-05-2024 End: 06-05-2024 Patient encounter procedure Mikhail OVERTON -[facility] Work Phone: Start: 06-05-2024 End: 06-05-2024 ambulatory Ángel Rivera Facility:[facility] Start: 04-28-2024 ambulatory [facility] Facility :[facility] Start: 04-23-2024 End: 04-23-[address] Ángel Rivera MD Work Phone: [facility] Work Phone: Start: 04-23-2024 End: 04-23-[address] Alfonso Ruano MD -Laboratory, [facility] Work Phone: Start: 04-22-2024 End: 04-23-[address] Ángel Rivera MD Work Phone: [facility] Work Phone: Start: 04-22-2024 End: 04-22-[address] Alfonso Ruano MD -Laboratory, [facility] Work Phone: Start: 04-22-2024 End: 04-22-2024 ambulatory [facility] Facility:[facility] Start: 03-18-2024 End: 03-18-[address] Ángel Rivera MD -Laboratory, [facility] Start: 03-18-2024 End: 03-18-2024 ambulatory Ángel Rivera Facility:[facility] Start: 11-22-2023 End: 11-22-2023 ambulatory Ángel Rivera Facility:[facility] Start: 11-22-2023 End: 11-22-2023 ambulatory Ángel Rivera Facility:[facility] Start: 09-19-2023 End: 09-19-2023 ambulatory Ángel Rivera Facility:[facility] Start: 05-15-2023 End: 05-15-[address] Ángel Rivera Work Phone: [facility] Work Phone: Start: 05-13-2023 Non-patient / Non-visit Dr. Herman Rivera Work Phone: [facility] Start: 05-13-2023 End: 05-13-[address] Ángel Rivera Work Phone: [facility] Work Phone: Start: 05-13-2023 End: 05-13-[address] [facility] Work [facility]: Start: 04-24-2023 End: 04-24-[address] Ángel Rivera Work Phone: [facility] Work Phone: Start: 04-24-2023 End: 04-24-[address] Ángel Rivera Work Phone: [facility] Work Phone: Start: 04-17-2023 End: 04-17-[address] Ángel Rivera Work Phone: [facility] Work Phone: Start: 04-17-2023 End: 04-17-[address] nÁgel Rivera [facility] Start: 04-10-2023 End: 04-10-[address] Ángel Rivera Work Phone: [facility] Work Phone: Start: 03-06-2023 End: 03-06-2023 ambulatory [facility] Work Phone: Start: 03-06-2023 End: 03-06-2023 Patient encounter procedure [facility] Start: 02-05-2023 End: 02-05-2023 ambulatory [facility] Work Phone: Start: 02-05-2023 End: 02-05-2023 Patient encounter procedure [facility] Start: 09-21-2022 End: 09-21-2022 ambulatory [facility] Work Phone: Start: 09-21-2022 End: 09-21-2022 Patient encounter procedure [facility] Start: 03-21-2022 End: 03-21-2022 ambulatory [facility] Work Phone: Start: 03-21-2022 End: 03-21-2022 Patient encounter procedure [facility] Start: 09-13-2021 End: 09-13-2021 Patient encounter procedure [facility] Procedures Date Procedure Procedure Detail Performing Clinician Start: 06-05-2024 Evaluation of diagno stic study results Dr. Ángel Rivera MD Work Phone: Start: 04-23-[address] e detection Dr. Ángel Rivera MD Work Phone: Start: 04-22-2024 Endomysial antibody IgA level Dr. Ángel Rivera MD Work Phone: Start: 03-18-2024 Measurement of renal function Dr. Ángel Rivera MD Work Phone: Comment on above: GFR Calc Plan of Treatment Date Care Activity Detail Author 24 Hour ECG [facility] Basic metabolic 2007 panel with ionized calcium - Serum or Plasma [facility] Basic metabolic 2007 panel with ionized calcium - Serum or Plasma [facility] Blood chemistry [facility] Complete blood count [facility] Immunizations Immunization Date Immunization Notes Care Provider Fa cility 10-28-2019 influenza, injectabl e, quadrivalent, preservative free [facility] 10-28-2019 influenza, seasonal, injectable [facility] Payers Date Payer Category Payer Private Health Insurance [id number] 2023 Self-pay [id number] 2016 [id number] Medicare [id number] Unknown [id number] 2.16.8 [id number] Unknown [id number] 2.16.8 [id number] Unknown [id number] 2.16.8 [id number] Unknown [id number] 2.16.8 [id number] Unknown [id number] 2.16.8 [id number] Unknown [id number] 2.16.8 [id number] Unknown [id number] 2.16.8 [id number] Unknown [id number] 2.16.8 [id number] Unknown [id number] 2.16.8 [id number] Unknown [id number] 2.16.8 [id number] Unknown [id number] 2.16.8 [id number] Unknown [id number] 2.16.8 [id number] Unknown [id number] 2.16.8 [id number] Unknown [id number] 2.16.8 [id number] Social History Date Type Detail Facility Start: 10-28-2019 End: 05-15-2023 Tobacco smoking status KYIS Unknown if ever smoked [facility] Start: 1940 Sex Assigned At Female [facility] Start: 05-15-2023 Tobacco smoking stat us NHIS Never smoked tobacco (finding) [facility] Start: 04-29-2024 End: 06-09-2024 Sex Female (finding) [facility] Evaluation note 06-05-2024 Note Date & Type Note Facility 06-05-2024 Evaluation note Diagnosis Onset Date Resolution Atrial fibrillation acute June 05, 2024 3:26pm Bilateral lower extremity edema acute June 05, 2024 3:26pm Dyspnea on exertion acute June 05, 2024 3:26pm Hypertension chronic June 05, 2024 3:26pm [facility] Work Phone: Evaluation note 06-05-2024 Note Date & Type Note Facility 06-05-2024 Evaluation note Diagnosis Onset Date Resolution Atrial fibrillation acute June 05, 2024 3:26pm Bilateral lower extremity edema acute June 05, 2024 3:26pm Dyspnea on exertion acute June 05, 2024 3:26pm Hypertension chronic June 05, 2024 3:26pm Atrial fibrillation acute June 122024 1:01pm Hypertension chronic July 01 1:01pm [facility] Work Phone: Evaluation note 06-05-2024 Note Date & Type Note Facility 06-05-2024 Evaluation note Diagnosis Onset Date Resolution Atrial fibrillation acute June 05, 2024 3:26pm Hypertension chronic June 05, 2024 3:26pm Bilateral lower extremity edema resolved June 05, 2024 3:26pm Dyspnea on exertion resolved June 05, 2024 3:26pm Atrial fibrillation acute June 122024 1:01pm Hypertension chronic July 01 1:01pm Bilateral lower extremity edema resolved July 01, 2024 1 :01pm Dyspnea on exertion resolved June 122024 1:01pm [facility] Work Phone: Evaluation note Note Date & Type Note Facility Evaluation note No assessment information availa ble [facility] Work Phone: Evaluation note Note Date & Type Note Facility Evaluation note Diagnosis Onset Date Atrial fibrillation acute Hypertension [facility] Work Phone: Evaluation note Note Date & Type Note Facility Evaluation note Diagnosis Onset Date Atrial fibrillation acute Hypertension chronic Atrial fibrillation acute Hypertension chronic [facility] Work Phone: Reason for referral (narrative) Note Date & Type Note Facility Reason for referral (narrative) No reason for referral information available [facility] Work Phone: Family History No Family History Records Found Relationship Condition Age at Onset Recorded Date/T bernadette mother Arthritis Unknown Malignant neoplasm of breast Unknown Hypertension Unknown Cardiac disease Unknown father Cardiac disease Unknown High blood cholesterol Unknown brother Malignant neoplasm of colon Unknown sister Disorder of thyroid Unknown Advance Directives No Advanced Directives Records Found Advance Directive Response Recorded Date/ Time Living Will Yes February 21 10:19am Power of Brand Ambassador Yes February 21, 2018 10:19am Advance Directive Response Recorded Date/ Time Living Will Yes February 21 9:19am Power of Brand Ambassador Yes February 21, 2018 9:19am Chief Complaint and Reason for Visit Chief Complaint NEW ONSET AFIB (DARRION SEN) Reason for Visit Atrial fibrillation Hypertension Chief Complaint NEW ONSET AFIB (DARRION SEN) E-ORDER HCTZ changed to Spironolactone L.L. Reason for Visit Atrial fibrillation Hypertension Chief Complaint NEW ONSET AFIB (DARRION SEN) E-ORDER HCTZ changed to Spironolactone L.L. AFIB 1 m fu Reason for Visit Atrial fibrillation Hypertension Atrial fibrillation Hypertension Chief Complaint Admit Date SEE ORDER April 22, 2024 3:3 8pm [facility] April 23, 2024 12: 49pm Chief Complaint Admit Date SEE ORDER April 22, 2024 3:3 8pm [facility] April 23, 2024 12: 49pm 6 M FU June 05, 2024 3:2 6pm eorder June 05, 2024 4:2 8pm Reason for Visit Admit Date Atrial fibrillation June 05, 2024 3:2 6pm Bilateral lower extremity edema June 052024 3:26pm Dyspnea on exertion June 05, 2024 3:2 6pm Hypertension June 05, 2024 3:2 6pm Chief Complaint Admit Date SEE ORDER April 22, 2024 3:3 8pm [facility] April 23, 2024 12: 49pm 6 M FU June 05, 2024 3:2 6pm eorder June 05, 2024 4:2 8pm INT LAB ORDER June 16, 2024 11:41a m Chief Complaint Admit Date SEE ORDER April 22, 2024 3:3 8pm [facility] April 23, 2024 12: 49pm 6 M FU June 05, 2024 3:2 6pm eorder June 05, 2024 4:2 8pm INT LAB ORDER June 16, 2024 11:41a m 4 WK FU July 01, 2024 1:01p m Reason for Visit Admit Date Atrial fibrillation June 05, 2024 3:2 6pm Bilateral lower extremity edema June 052024 3:26pm Dyspnea on exertion June 05, 2024 3:2 6pm Hypertension June 05, 2024 3:2 6pm Atrial fibrillation July 01, 2024 1:01p m Hypertension July 01, 2024 1:01p m Chief Complaint Admit Date SEE ORDER April 22, 2024 3:3 8pm [facility] April 23, 2024 12: 49pm 6 M FU June 05, 2024 3:2 6pm eorder June 05, 2024 4:2 8pm INT LAB ORDER June 16, 2024 11:41a m 4 WK FU July 01, 2024 1:01p m CHF, SOB July 02, 2024 12:43 pm Reason for Visit Admit Date Atrial fibrillation June 05, 2024 3:2 6pm Hypertension June 05, 2024 3:2 6pm Bilateral lower extremity edema June 052024 3:26pm Dyspnea on exertion June 05, 2024 3:2 6pm Atrial fibrillation July 01, 2024 1:01p m Hypertension July 01, 2024 1:01p m Bilateral lower extremity edema June 1:01pm Dyspnea on exertion July 01, 2024 1:01p m Summary Purpose Additional Source Comments Goals (unrecognized section and content) Goals may be documented in a n alternate sectionGoals may be documented in an alternate sectionGoals may be documented in an alternate sectionGoals may be documented in an alternate sectionGoals may be documented in an alternate sectionGoals may be documented in an alternate sectionGoals may be documented in an alternate sectionGoals may be documented in an alternate sectionGoals may be documented in an alternate sectionGoals may be documented in an alternate sectionGoals may be documented in an alternate sectionGoals may be documented in an alternate sectionGoals may be documented in an alternate sectionGoals may be documented in an alternate section Care Teams (unrecognized sec tion and content) Team Status: Active Member Role Status Dates Dr. Ángel Rivera MD Family Provider Active Dr. Ángel Rivera MD Primary Care Provider Active Team Status: Inactive Member Role Status Dates Dr. Ángel Rivera MD Primary Care Provi willy, Attending Provider, Referring Provider Active Team Status: Inactive Member Role Status Dates Dr. Ángel Rivera MD Primary Care Provider, Attending Provider Active Team Status: Inactive Member Role Status Dates Dr. Ángel Rivera MD Primary Care Provider, Referring Provider Active Dr. Orlando Almaraz MD Attending Provider Active Team Status: Inactive Member Role Status Dates Dr. Ángel Rivera MD Primary Care Provider Active Dr. Orlando Almaraz MD Attending Provider, Referring Provider Active Team Status: Active Member Role Status Dates Dr. Ángel Rivera MD Primary Care Provider Active Dr. Darryl Thomason MD Attending Provider Active Team Status: Inactive Member Role Status Dates Dr. Ángel Rivera MD Primary Care Provider Active Start: March 18, 2024 End: March 18, 2024 Dr. Ángel Rivera MD Attending Provider Active Start: March 18, 2024 End: March 18, 2024 Dr. Ángel Rivera MD Referring Provider Active Start: March 18, 2024 End: March 18, 2024 Team Status: Inactive Member Role Status Dates Dr. Ángel Rivera MD Primary Care Provider Active Start: April 22, 2024 End: April 22, 2024 Dr. Alfonso Ruano MD Attending Provider Active Start: April 22, 2024 End: April 22, 2024 Dr. Alfonso Ruano MD Referring Provider Active Start: April 22, 2024 End: April 22, 2024 Team Status: Active Member Role Status Dates Dr. Ángel Rivera MD Primary Care Provider Active Start: April 23, 2024 Dr. Alfonso Ruano MD Attending Provider Active Start: April 23, 2024 Dr. Alfonso Ruano MD Referring Provider Active Start: April 23, 2024 Team Status: Inactive Member Role Status Dates Dr. Ángel Rivera MD Primary Care Provider Active Start: April 23, 2024 End: April 23, 2024 Dr. Alfonso Ruano MD Attending Provider Active Start: April 23, 2024 End: April 23, 2024 Dr. Alfonso Ruano MD Referring Provider Active Start: April 23, 2024 End: April 23, 2024 Team Status: Inactive Member Role Status Dates Dr. Ángel Rivera MD Primary Care Provider Active Start: June 05, 2024 End: June 05, 2024 Dr. Ángel Rivera MD Referring Provider Active Start: June 05, 2024 End: June 05, 2024 HERMAN Terrazas Attending Provider Active St art: June 05, 2024 End: June 05, 2024 Team Status: Inactive Member Role Status Dates Dr. Ángel Rivera MD Primary Care Provider Active Start: June 05, 2024 End: June 05, 2024 HERMAN Terrazas Attending Provider Active St art: June 05, 2024 End: June 05, 2024 Mikhail Pradeep PA Referring Provider Active St art: June 05, 2024 End: June 05, 2024 Team Status: Active Member Role Status Dates Dr. Ángel Rivera MD Primary Care Provider Active Team Status: Inactive Member Role Status Dates Dr. Ángel Rivera MD Primary Care Provider Active Start: June 16, 2024 End: June 16, 2024 HERMAN Terrazas Attending Provider Active St art: June 16, 2024 End: June 16, 2024 HERMAN Terrazas Referring Provider Active St art: June 16, 2024 End: June 16, 2024 Team Status: Inactive Member Role Status Dates Dr. Ángel Rivera MD Primary Care Provider Active Start: July 01, 2024 End: July 01, 2024 Dr. Ángel Rivera MD Referring Provider Active Start: July 01, 2024 End: July 01, 2024 HERMAN Terrazas Attending Provider Active St art: July 01, 2024 End: July 01, 2024 Team Status: Inactive Member Role Status Dates Dr. Ángel Rivera MD Primary Care Provider Active Start: July 02, 2024 End: July 02, 2024 HERMAN Terrazas Attending Provider Active St art: July 02, 2024 End: July 02, 2024 HERMAN Terrazas Referring Provider Active St art: July 02, 2024 End: July 02, 2024 Team Status: Active Member Role Status Dates Dr. Ángel Rivera MD Primary Care Provider Active Start: July 02, 2024 Dr. Darryl Thomason MD Attending Provider Active S tart: July 02, 2024 INFORMATION SOURCE (unrecogn ized section and content) DATE CREATED AUTHOR 07/11/2024 [facility] FOR RECORDS PERTAINING TO PATIENTS WHO ARE OR HAVE BEEN ENROLLED IN A CHEMICAL DEPENDENCY/SUBSTANCEABUSE PROGRAM, SOME INFORMATION MAY BE OMITTED. This clinical summary was aggregated from multiple sources. Caution should be exercised in using it in the provision of clinical care. This summary normalizes information from multiple sources, and as a consequence, information in this document may materially change the coding, format and clinical context of patient data. In addition, data may be omitted in some cases. CLINICAL DECISIONS SHOULD BE BASED ON THE PRIMARY CLINICAL RECORDS. [facility]. provides no warranty or guarantee of the accuracy or completeness of information in this document.
== END | disposition home or self-care (01) ==
LOC: PSN 13:05
PROVIDERS: PCP Family Medicine; Referring Provider Student in an Organized Health Care Education/Training Program; Visit Provider Student in an Organized Health Care Education/Training Program
DX: I48.91 Unspecified atrial fibrillation (principal)
CPT/HCPCS: 93225; 93226

== ENCOUNTER → 2024-07-17 | Outpatient (CLI) | payer MEDICARE, SELFPAY ==
[2024-07-17 15:32] LABS: Anion Gap 13 (5-15); BUN 41 mg/dL (4-19); BUN/Creat Ratio 25.4 RATIO (10-20); Calcium,Total 10.3 mg/dL (7.6-11.0); Carbon Dioxide 17.7 mmol/L (21.0-32.0); Chloride 103 mmol/L (98-108); Creatinine, Serum 1.62 mg/dL (0.70-1.20); EST Glomerular Filtration Rate 31 (>60); Glucose 92 mg/dL (70-99); Potassium 4.5 mmol/L (3.3-5.1); Sodium Level 133 mmol/L (133-145)
== END | disposition home or self-care (01) ==
LOC: LAB 13:19
PROVIDERS: PCP Family Medicine; Referring Provider Student in an Organized Health Care Education/Training Program; Visit Provider Student in an Organized Health Care Education/Training Program
DX: I10 Essential (primary) hypertension (principal)
CPT/HCPCS: 36415; 80048

== ENCOUNTER → 2024-07-22 | Outpatient (CLI) | payer MEDICARE, SELFPAY ==
[2024-07-24 13:08] LABS: Fats, Neutral Normal (.); Fats, Total Normal (.)
[2024-07-24 23:07] LABS: Pancreatic Elastase, Fecal 123 (>200)
== END | disposition home or self-care (01) ==
LOC: MTLAB 14:16
PROVIDERS: PCP Family Medicine; Referring Provider Internal Medicine Gastroenterology; Visit Provider Internal Medicine Gastroenterology
DX: R19.7 Diarrhea, unspecified (principal)
CPT/HCPCS: 82653; 82705

== ENCOUNTER → 2024-08-17 | Outpatient (CLI) | payer MEDICARE, SELFPAY ==
[2024-08-17 16:21] LABS: Anion Gap 13 (5-15); BUN 36 mg/dL (4-19); BUN/Creat Ratio 24.5 RATIO (10-20); Calcium,Total 10.0 mg/dL (7.6-11.0); Carbon Dioxide 22.3 mmol/L (21.0-32.0); Chloride 102 mmol/L (98-108); Glucose 94 mg/dL (70-99); Potassium 3.9 mmol/L (3.3-5.1)
== END | disposition home or self-care (01) ==
LOC: LAB 14:38
PROVIDERS: PCP Family Medicine; Referring Provider Student in an Organized Health Care Education/Training Program; Visit Provider Student in an Organized Health Care Education/Training Program
DX: I10 Essential (primary) hypertension (principal)
CPT/HCPCS: 36415; 80048

== ENCOUNTER → 2024-08-31 | Outpatient (CLI) | payer MEDICARE, SELFPAY ==
[2024-08-31 13:32] LABS: Anion Gap 14 (5-15); BUN 23 mg/dL (4-19); BUN/Creat Ratio 18.3 RATIO (10-20); Calcium,Total 10.0 mg/dL (7.6-11.0); Carbon Dioxide 18.8 mmol/L (21.0-32.0); Chloride 102 mmol/L (98-108); Glucose 91 mg/dL (70-99); Potassium 4.7 mmol/L (3.3-5.1)
== END | disposition home or self-care (01) ==
LOC: LAB 12:17
PROVIDERS: PCP Family Medicine; Referring Provider Student in an Organized Health Care Education/Training Program; Visit Provider Student in an Organized Health Care Education/Training Program
DX: I10 Essential (primary) hypertension (principal)
CPT/HCPCS: 36415; 80048

== ENCOUNTER → 2024-09-01 | Outpatient (CLI) | payer MEDICARE, SELFPAY ==
--- NOTE | 2024-09-01 07:02 | CT_ITS ---
PROCEDURE: ABDOMEN WITH IV CONTRAST 09/01/2024 REASON FOR EXAM: PANCREATIC INSUFF TECHNIQUE: ABDOMEN WITH IV CONTRAST. Multiplanar Sagittal and Coronal images were obtained. One or more dose reduction techniques were used (e.g., Automated exposure control, adjustment of the mA and/or kV according to patient size, use of iterative reconstruction technique. CONTRAST: Isovue 370 VOLUME: 75 mL RADIATION DOSE SUMMARY: CTDlvol: 40 mGy DLP: 383 mGycm COMPARISON: 01/31/2018 FINDINGS: Tiny bilateral pleural effusions, adjacent atelectasis. Cardiac enlargement. Heterogeneous liver parenchymal enhancement, correlate for medical liver disease. Periportal tracking. Normal gallbladder. Normal pancreas, spleen, adrenal glands. Multiple simple renal cysts. On the left, series 2, image 38, redemonstration of a hyperdense cyst. No hydronephrosis. No retroperitoneal adenopathy. No free air. Nondistended bowel. No acute large bowel findings. Lumbar spine scoliosis and degeneration. CT/Abdomen WITH IV Contrast IMPRESSION: Possible medical liver disease. No acute abdominal findings. Reading Location: [place] [id number]
--- OUTSIDE RECORDS SUMMARY | 2024-09-01 07:04 | XMS RPT_ITS | CCD ---
Author Organization [facility] Care Team Providers Care Tool Machine Setup Operator Name Role Phone Dr. Ángel Rivera Primary Care Provider Dr. Ángel Rivera Referring Provider Dr. Orlando Almaraz Attending Provider [phone] Darryl Thomason Attending Provider Dr. Ángel Rivera MD Primary Care Provider [phone] Dr. Ángel Rivera MD Attending Provider [phone] Ángel Rivera MD Referring Provider [phone] Alfonso Rauno MD Attending Provider Dr. Alfonso Ruano MD Referring Provider Mikhail Washburn Attending Provider [phone] Mikhail Washburn Referring Provider [phone] Darryl Thomason MD Attending Provider [phone] Ángel Rivera MD Primary Care Provider Dr. Ángel Rivera MD Referring Provider [phone] Orlando Almaraz MD Attending Provider Ángel Rivera Primary Care Unavailable Mikhail Fernández Attending Unavailable Mikhail Fernández Referring Unavailable Orlando Almaraz Referring Unavailable Orlando Almaraz Attending Unavailable Ángel Rivera Primary Care Unavailable Ángel Rivera Referring Unavailable Ángel Rivera Attending Unavailable Ángel Rivera Primary Care Unavailable Ángel Rivera Primary Care Unavailable Mikhail Fernández Attending Unavailable Pradeep, Mikhail Referring Unavailable Ángel Rivera Primary Care Unavailable Demiter, Mikhail Attending Unavailable Pradeep, Mikhail Referring Unavailable Pradeep, Mikhail Referring Unavailable Rivera, Ángel Primary Care Unavailable Demiter, Mikhail Attending Unavailable Rivera, Ángel Primary Care Unavailable Jabour, Vincent Referring Unavailable Jabour, Vincent Attending Unavailable Jabour, Vincent Attending Unavailable Rivera, Ángel Primary Care Unavailable Jabour, Vincent Referring Unavailable Rivera, Ángel Primary Care Unavailable Jabour, Vincent Attending Unavailable Jabour, Vincent Attending Unavailable Rivera, Ángel Primary Care Unavailable Jabour, Vincent Referring Unavailable Rivera, Ángel Primary Care Unavailable Darryl Thomason Attending Unavailable Demiter, Mikhail Referring Unavailable Rivera, Ángel Primary Care Unavailable Orlando Almaraz Attending Unavailable Demiter, Mikhail Referring Unavailable Demiter, Mikhail Attending Unavailable Rivera, Ángel Primary Care Unavailable Rivera, Ángel Attending Unavailable Rivera, Ángel Primary Care Unavailable Rivera, Ángel Primary Care Unavailable Jabour, Alysiaent Attending Unavailable Jabour, Vincent Referring Unavailable Rivera, Ángel Primary Care Unavailable Demiter, Mikhail Attending Unavailable Demiter, Mikhail Referring Unavailable Rivera, Ángel Primary Care Unavailable Rivera, Ángel Referring Unavailable Demiter, Mikhail Attending Unavailable Rivera, Ángel Referring Unavailable Demiter, Mikhail Attending Unavailable Rivera, Ángel Primary Care Unavailable Rivera, Ángel Referring Unavailable Brina Cintron NP Attending Unavailable Rivera, Ángel Primary Care Unavailable Rivera, Ángel Primary Care Unavailable Rivera, Ángel Referring Unavailable Demiter, Mikhail Attending Unavailable Medications Current Medications Medication Drug Class(es) Dates Sig (Normalized) Sig (Original) apixaban 5 mg oral tablet (18 sources) Factor Xa Inhibitor Start: 07-20-2024 take 2.5 mg by mouth twice daily Apixaban (Eliquis) 5 mg tablet Active 2.5 mg PO TWICE A DAY July 20, 2024 12:05pm Start: 03-22-2023 End: 07-20-2024 take 1 tablet by mouth twice daily Apixaban (Eliquis) 5 mg tablet Discontinued 5 mg PO TWICE A DAY March 22, 2023 1:00am July 20, 2024 12:07pm 24 hr dilTIAZem hydrochloride 120 mg extended release oral capsule (6 sources) Calcium Channel Angella Start: 07-20-2024 End: 08-17-2024 take 1 capsule by mouth once daily in the morning, then take 1 capsule by mouth every twenty-four hours Diltiazem Hcl (Cartia Xt) 120 mg capsule,extended release 24hr Active 120 mg PO EVERY MORNING 30 3 August 17, 2024 2:15pm hydroxychloroquine sulfate 200 mg oral tablet (19 sources) Antimalarial, Antirheumatic Agent Start: 02-21-2018 take 1 tablet by mouth once daily Hydroxychloroquine 200 MG tablet Active 200 mg PO DAILY February 21, 2018 1:00am levothyroxine sodium 0.05 mg oral capsule (19 sources) l-Thyroxine Start: 02-19-2018 take 1 capsule by mouth once daily Levothyroxine 50 mcg capsule Active 50 ug PO DAILY February 19, 2018 1:00am 24 hr metoprolol succinate 50 mg extended [...] Daily Women 50 Plus) 800-100 mcg tablet (19 sources) Start: 02-19-2018 take 50-800 tablets by mouth once daily Mv-Mn-Folic Ac-Vit K-Herb 289 (Alive Once Daily Women 50 Plus) 800-100 mcg tablet Active 1 {tbl} PO DAILY 0 February 19, 2018 1:00am Start: 02-19-2018 take [...] 2018 1:00am sertraline 25 mg oral tablet (9 sources) Serotonin Reuptake Inhibitor Start: 06-05-2024 take 1 tablet by mouth once daily Sertraline 25 mg tablet Active 25 mg PO daily June 05, 2024 12:00am spironolactone 25 mg oral tablet (20 sources) Aldosterone Antagonist Start: 07-20-2024 take 1 tablet by mouth once daily Spironolactone 25 mg tablet Active 25 mg PO DAILY 90 3 July 20, 2024 12:06pm Start: 06-08-2024 End: 07-20-2024 take 1 tablet by mouth once daily Spironolactone 50 mg tablet Discontinued 50 mg PO DAILY 90 3 June 08, 2024 10:41am July 20, 2024 12:07pm Start: 04-17-2023 End: 06-08-2024 take 1 tablet by mouth once daily Spironolactone 25 mg tablet Discontinued 25 mg PO DAILY 30 5 October 15, 2023 8:04pm June 05, 2024 4:18pm Completed/Discontinued Medications Medication Drug Class(es) Dates Sig (Normalized) Sig (Original) amLODIPine 5 mg oral tablet (14 sources) Dihydropyridine Calcium Channel Angella Start: 03-22-2023 End: 06-08-2024 take 1 tablet by mouth once daily Amlodipine 5 mg tablet Discontinued 5 mg PO DAILY March 22, 2023 1:00am June 08, 2024 10:42am Antiarthritic Combination No.2 (Glucosamine-Chondr oitin) 900 mg tablet (19 sources) Start: 02-19-2018 End: 11-22-2023 take 1 tablet by mouth once daily Antiarthritic Combination No.2 (Glucosamine-Chond roitin) 900 mg tablet Discontinued 900 mg PO DAILY 0 February 19, 2018 1:00am November 22, 2023 10:49am Start: 02-19-2018 End: 11-22-2023 take 1 tablet by mouth once daily Antiarthritic Combination No.2 (Glucosamine-Chondroitin) 900 mg tablet Discontinued 900 mg PO [...] 2018 1:00am famotidine 20 mg oral tablet (14 sources) Histamine-2 Receptor Antagonist Start: 03-22-2023 End: 04-10-2023 take 1 tablet by mouth once daily Famotidine 20 mg tablet Discontinued 20 mg PO DAILY March 22, 2023 1:00am April 10, 2023 1:57pm furosemide 40 mg oral tablet (18 sources) Loop Diuretic Start: 08-17-2024 End: 08-17-2024 Furosemide 40 mg tablet Discontinued 40 mg PO .monwedfr August 17, 2024 12:00am August 17, 2024 2:13pm Start: 06-08-2024 End: 07-20-2024 take 1 tablet by mouth once daily in the morning Furosemide (Lasix) 40 mg tablet Discontinued 40 mg PO EVERY MORNING 30 July 01, 2024 1:35pm July 20, 2024 12:06pm hydroCHLOROthiazide 25 mg oral tablet (14 sources) Thiazide Diuretic Start: 04-10-2023 End: 04-17-2023 take 1 tablet by mouth once daily Hydrochlorothiazide 25 mg tablet Discontinued 25 mg PO DAILY 30 5 April 10, 2023 1:00am April 17, 2023 2:57pm lactobacillus acidophilus 1.5 mg oral capsule (19 sources) Start: 02-19-2018 End: 07-01-2024 Lactobacillus Acidophilus (Probiotic Acidophilus) 1.5 mg (250 million cell) capsule Discontinued 100 NMA PO DAILY February 19, 2018 1:00am July 01, 2024 1:07pm losartan potassium 50 mg oral tablet (20 sources) Angiotensin 2 Receptor Angella Start: 11-22-2023 End: 08-17-2024 take 2 tablets by mouth once daily Losartan 50 mg tablet Discontinued 100 mg PO DAILY November 22, 2023 4:12pm August 17, 2024 2:15pm Start: 02-19-2018 End: 11-22-2023 take 1 tablet by mouth once daily Losartan 50 mg tablet Discontinued 50 mg PO DAILY February 19, 2018 1:00am November 22, 2023 4:13pm omeprazole 20 mg delayed release oral tablet (19 sources) Proton Pump Inhibitor Start: 02-19-2018 End: 03-22-2023 take 1 tablet by mouth once daily Omeprazole 20 mg tablet,delayed release (DR/EC) Discontinued 20 mg PO DAILY February 19, 2018 1:00am March 22, 2023 3:29pm sucralfate 1000 mg oral tablet (19 sources) Aluminum Complex Start: 02-19-2018 End: 07-01-2024 take 1 tablet by mouth at bedtime Sucralfate 1 gram tablet Discontinued 1 g PO before meals and at bedtime February 19, 2018 1:00am July 01, 2024 1:07pm wheat dextrin 3000 mg powder for oral solution (19 sources) Start: 02-21-2018 End: 06-05-2024 Wheat Dextrin 1 EACH powder in packet Discontinued 1 NMA PO DAILY February 21, 2018 1:00am June 05, 2024 3:32pm Start: 02-21-2018 Wheat Dextrin Active 1 EACH PO DAILY February 21, 2018 1:00am Problems Problem Classification Problem Date Documented Da te Episodic/Chronic Cardiac dysrhythmias (20 sources) Atrial fibrillation; Translations: [Unspecified atrial fibrillation] Onset: 07-20-2024 04-10-2023 Chronic Comment on above: The patient has been in atrial fibs since February 05, 2023. The patient's [id number] score is equal to 4. Patient is [...] Hypertensive disorder; Translations: [Essential (primary) hypertension] Onset: 08-20-2024 02-19-2018 Chronic Other gastrointestinal disorders (19 sources) Diarrhea; Translations: [Diarrhea, unspecified] 02-24-2018 Episodic Other gastrointestinal disorders (1 source) Diarrhea, unspecified; Translations: [Diarrhea, unspecified] Onset: 07-29-2024 Episodic Other lower respiratory disease (20 sources) Dyspnea on exertion; Translations: [Other forms of dyspnea] 06-08-2024 Episodic Other lower respiratory disease (1 source) Shortness of breath; Translations: [Shortness of breath] Onset: 07-07-2024 Episodic Other lower respiratory disease (1 source) Other forms of dyspnea; Translations: [Other forms of dyspnea] Onset: 06-09-2024 Episodic Pancreatic disorders (not diabetes) (1 source) Other specified diseases of pancreas; Translations: [Other specified diseases of pancreas] Onset: 08-25-2024 Episodic Residual codes; unclassified (19 sources) History of colonoscopy; Translations: [Other specified postprocedural states] 02-19-2018 Episodic Comment on above: 03/2011 Residual codes; unclassified (20 sources) Bilateral lower limb edema; Translations: [Localized edema] 06-08-2024 Episodic Residual codes; unclassified (1 source) Edema, unspecified; Translations: [Edema, unspecified] Onset: 06-20-2024 Episodic Rheumatoid arthritis and related disease (19 sources) Rheumatoid arthritis; Translations: [Rheumatoid arthritis, unspecified] 02-19-2018 Chronic Thyroid disorders (15 sources) Hypothyroidism; Translations: [Hypothyroidism, unspecified] Onset: 10-17-2023 03-22-2023 Chronic Thyroid disorders (19 sources) Disorder of thyroid gland; Translations: [Disorder of thyroid, unspecified] 02-19-2018 Episodic Unclassified (1 source) Other persistent atrial fibrillation; Translations: [Other persistent atrial fibrillation] Onset: 06-05-2024 Results Test Name Value Interpretation Reference Range Facility Anion gap in Serum or Plasma Ordered By: Mikhail Fernández on 08-17-2024 Anion gap [Moles/Vol] 13 mmol/L 06-25 [facility] BUN/creatinine ratioOrdered By: Mikhail Fernández on 08-17-2024 Urea nitrogen/Creatinine [Mass ratio] 24.5 mg/mg High 11-30 [facility] Basic Metabolic Profile (BMP )on 08-17-2024 BUN/CRE 24.5 RATIO High 11-30 [facility] Comment on above: Performed By: #### L 506.0400, L501.9520, L501.33619, L500.4050, L500.4100 #### [facility] [address] [place], [address] Calcium [Mass/Vol] 10.0 mg/dL Normal 7.6-11.0 [facility] Comment on above: Performed By: #### L 506.0400, L501.9520, L501.49176, L500.4050, L500.4100 #### [facility] [address] [place], [address] Chloride [Moles/Vol] 102 mmol/L Normal 98-108 [facility] Comment on above: Performed By: #### L 506.0400, L501.9520, L501.76179, L500.4050, L500.4100 #### [facility] [address] [place], [address] CO2 [Moles/Vol] 22.3 mmol/L Normal 21.0-32.0 [facility] Comment on above: Performed By: #### L 506.0400, L501.9520, L501.03414, L500.4050, L500.4100 #### [facility] [address] [place], [address] Creatinine [Mass/Vol] 1.47 mg/dL High 0.70-1.20 [facility] Comment on above: Performed By: #### L 506.0400, L501.9520, L501.14040, L500.4050, L500.4100 #### [facility] [address] [place], [address] GAP 13 Normal 5-15 [facility] Comment on above: Performed By: #### L 506.0400, L501.9520, L501.47849, L500.4050, L500.4100 #### [facility] [address] [place], [address] GFR/1.73 sq M.predicted among non-blacks MDRD (S/P/Bld) [Vol rate/Area] 35 mL/min/{1.73_m2} Low >60 [facility] Comment on above: Result Comment: mL/m in/1.73m2 CKD-EPI Creatinine Equation (2020) Performed By: #### L 506.0400, L501.9520, L501.51890, L500.4050, L500.4100 #### [facility] [address] [place], [address] Glucose [Mass/Vol] 94 mg/dL Normal 70-99 [facility] Comment on above: Performed By: #### L 506.0400, L501.9520, L501.62322, L500.4050, L500.4100 #### [facility] [address] [place], [address] Potassium [Moles/Vol] 3.9 mmol/L Normal 3.3-5.1 [facility] Comment on above: Performed By: #### L 506.0400, L501.9520, L501.98078, L500.4050, L500.4100 #### [facility] [address] [place], [address] Sodium [Moles/Vol] 137 mmol/L Normal 133-145 [facility] Comment on above: Performed By: #### L 506.0400, L501.9520, L501.35433, L500.4050, L500.4100 #### [facility] [address] [place], [address] Urea nitrogen [Mass/Vol] 36 mg/dL High 4-19 [facility] Comment on above: Performed By: #### L 506.0400, L501.9520, L501.19086, L500.4050, L500.4100 #### [facility] [address] [place], [address] Carbon dioxide, total [Moles /volume] in Central venous bloodOrdered By: Mikhail Fernández on 08-17-2024 CO2 [Moles/Vol] 22.3 mmol/L 21.0-32.0 [facility] Cardiology Visit Reporton Cardiology Visit Report [facility] [address] [place] [address] OFFICE VISIT Date of Service: 08/17/24 MR#: [id number] Acct: [id number] Name: BRIAN KELLER Rep #: [id number] : 1940 Provider: HERMAN Terrazas Age/Sex: 84/F [place] [facility] [place] [place] Status: Signed Agree with assessment and plan. We need to get the patient on her rate modulating drugs consistently and then repeat the event monitor to make sure her rate is adequately controlled in the home environment. HPI HPI History of Present Illness Details: Brian Keller is an 84-year-old active white female who presents to the office today for follow-up for monitoring her cardiovascular health. She was diagnosed with atrial fibrillation Sendy 2023. And her heart rate has been controlled and she has been on oral anticoagulation since that point. We do not know when the patient actually went into atrial fibrillation. Patient has not been evaluated for DENY. She also has a history of hypertension that she reports has been elevated ever since the atrial fibrillation was diagnosed. Patient was seen in May 2024 with concerns of lower extremity edema and shortness of breath. She was treated with diuresis. Her echocardiogram demonstrated preserved ejection fraction. She was losing weight and having ongoing significant diarrhea. Her Lasix was decreased. A Holter monitor was obtained that demonstrated faster heart rates in the 150s at times. She was initiated on diltiazem. Upon presentation today, patient reports not taking her medications consistently. She has been obtaining low blood pressures at home in the 90s???100s/70s and she has been holding her blood pressure medications including metoprolol. She reports elevated heart rates in the 90s and 100s. She occasionally has heart rates in the 70s and 80s. She reports balance problems where she is finding herself mis-stepping. She experiences occasional dull left-sided chest pain that occurs minutes at a time. This is not directly associated with activity. This is similar to previously reported. Her lower extremity edema and shortness of breath have significantly improved. Further ROS below. Intake Vital Signs 07/01/24 06:51 08/17/24 13:40 Height 5 ft 5 in 5 ft 5 in BP 125/75 H Blood Pressure Location Lt brachial Position Sitting Respiration 18 Pulse 107 H Pulse Source Monitor Intake Visit Reasons: 4 WK FU Fee Clerk Required: No Accompanied by: Self Is patient in pain?: No Allergies No Known Allergies Allergy (Verified 08/17/24 13:40) Medications ???Medication ???Instructions ???Recorded ???Confirmed ???Type levothyroxine 50 mcg capsule 50 mcg PO DAILY 02/19/18 08/17/24 History multivit,mineral-folic acid 800 1 tab PO DAILY 02/19/18 08/17/24 H istory mcg-vit K 100 mcg-herbal no.289 tablet (Alive Once Daily Women 50 Plus) hydroxychloroquine 200 mg tablet 200 mg PO DAILY 02/21/18 07/01/24 History sertraline 25 mg tablet 25 mg PO QDAY 06/05/24 08/17/24 Hi story metoprolol succinate 50 mg 50 mg PO QDAY 07/01/24 08/17/24 Hi story tablet,extended release 24 hr apixaban 5 mg tablet (Eliquis) 2.5 mg PO BID 07/20/24 08/17/24 Hi story spironolactone 25 mg tablet 25 mg PO DAILY #90 tabs 07/20/24 0 08/17/24 Rx diltiazem HCl 120 mg 120 mg PO QAM #30 caps 08/17/24 Rx capsule,extended release 24 hr (Cartia XT) Have you fallen in the past year?: Yes (tripped over rug) [facility] Medical History Hypothyroidism Atrial fibrillation Diarrhea Hypertension [...] times per week ROS Const Const: Negative for fatigue or weakness Eyes Eyes: Negative for change in vision ENT ENT: Positive for balance problems; Negative for dizziness Cardio Chest Pain: Yes (occ) Character: dull Location: left chest (into shoulder area) Duration: minutes Palpitations: No Edema: None Resp Respiratory: Negative for SOB with act (more content not included)... Normal [facility] Chloride assayOrdered By: Neisha Fernández on 08-17-2024 Chloride [Moles/Vol] 102 mmol/L 98-108 [facility] Glomerular filtration rate ( GFR) estimation/1.73 sq m using serum, plasma, or whole bOrdered By: Mikhail Fernández on 08-17-2024 GFR/1.73 sq M.predicted among non-blacks MDRD (S/P/Bld) [Vol rate/Area] 35 mL/min/{1.73_m2} Low >60 [facility] Comment on above: mL/min/1.73m2 CKD-EP I Creatinine Equation (2020) Potassium measurement (mass/ volume)Ordered By: Mikhail Fernández on 08-17-2024 Potassium (Unsp spec) [Mass/Vol] 3.9 mmol/L 3.3-5.1 [facility] Serum creatinine measurement (mass/volume)Ordered By: Mikhail Fernández on 08-17-2024 Creatinine [Mass/Vol] 1.47 mg/dL High 0.70-1.20 [facility] Serum glucose measurement (m ass/volume)Ordered By: Mikhail Fernández on 08-17-2024 Glucose [Mass/Vol] 94 mg/dL 70-99 [facility] Serum or plasma calcium earnest urement (mass/volume)Ordered By: Mikhail Fernández on 08-17-2024 Calcium [Mass/Vol] 10.0 mg/dL 7.6-11.0 [facility] Serum or plasma urea nitroge n measurement (mass/volume)Ordered By: Mikhail Fernández on 08-17-2024 Urea nitrogen [Mass/Vol] 36 mg/dL High 4-19 [facility] Sodium levelOrdered By: Blayne Fernández on 08-17-2024 Sodium [Moles/Vol] 137 mmol/L 133-145 [facility] Fecal Fat, Qualitativeon FATS, NEUTRAL Normal Normal . [facility] Comment on above: Order Comment: Test( s) [id number], Neutral; [id number], Totalwas developed and its performance characteristicsdetermined by [facility]. It has not been cleared or approvedby the Food and Drug Administration. Result Comment: Norm al (<60 Droplets/HPF) Performed By: #### L 506.0400, L501.9520, L501.32634, L500.4050, L500.4100 #### [facility] [address] [place], [address] FATS, TOTAL Normal Normal . [facility] Comment on above: Order Comment: Test( s) [id number], Neutral; [id number]-Gysl, Totalwas developed and its performance characteristicsdetermined by [facility]. It has not been cleared or approvedby the Food and Drug Administration. Result Comment: Norm al (<100 Droplets/HPF) Performed at: [address] [id number] Director Of Manufacturing: Alfonso Packer PhD, Phone: [phone] Performed By: #### L 506.0400, L501.9520, L501.95327, L500.4050, L500.4100 #### [facility] [address] [place], [address] L7000.0750on 07-24-2024 P ELASTASE,FECA 123 Low >200 [facility] Comment on above: Result Comment: Resu lt Units: ug Elast./g Severe Pancreatic Insufficiency: <100 Moderate Pancreatic Insufficiency: 100 - 200 Normal: >200 Performed at: [facility] [address] [facility] [place], [place] [id number] Director Of Manufacturing: Kaylan Lorenzo MD, Phone: [phone] Performed By: #### L 506.0400, L501.1753, L501.49722, L500.4050, L500.4100 #### [facility] [address] [place], [address] Fecal fat detectionOrdered B y: Alfonso Ruano on 07-22-2024 Fat Ql (Stl) Normal . [facility] Comment on above: Normal (<100 Droplet s/HPF)Performed at: [facility] [address] [id number] Director: Alfonso Packre PhD, Phone: [phone] No Panel InformationOrdered By: Alfonso Ruano on 07-22-2024 Stool Neutral Fats Normal . [facility] Comment on above: Normal (<60 Droplets /HPF) Stool pancreatic elastase me asurement (mass/mass)Ordered By: Alfonso Ruano on 07-22-2024 Elastase.pancreatic (Stl) [Mass/Mass] 123 Low >200 [facility] Comment on above: Result Units: ug Niharika st./g Severe Pancreatic Insufficiency: <100 Moderate Pancreatic Insufficiency: 100 - 200 Normal: >200Performed at: [facility] [id number] [place], [place] [id number] Director: Kaylan Lorenzo MD, Phone: [phone] Anion gap in Serum or Plasma Ordered By: Mikhail Fernández on 07-17-2024 Anion gap [Moles/Vol] 13 mmol/L - [facility] BUN/creatinine ratioOrdered By: Mikhail Fernández on 07-17-2024 Urea nitrogen/Creatinine [Mass ratio] 25.4 mg/mg High - [facility] Basic Metabolic Profile (BMP )on 07-17-2024 BUN/CRE 25.4 RATIO High 10-20 [facility] Comment on above: Performed By: #### L 506.0400, L501.9520, L501.06033, L500.4050, L500.4100 #### [facility] [address] [place], [address] Calcium [Mass/Vol] 10.3 mg/dL Normal 7.6-11.0 [facility] Comment on above: Performed By: #### L 506.0400, L501.9520, L501.75939, L500.4050, L500.4100 #### [facility] [address] [place], [address] Chloride [Moles/Vol] 103 mmol/L Normal 98-108 [facility] Comment on above: Performed By: #### L 506.0400, L501.9520, L501.09417, L500.4050, L500.4100 #### [facility] [address] [place], [address] CO2 [Moles/Vol] 17.7 mmol/L Low 21.0-32.0 [facility] Comment on above: Performed By: #### L 506.0400, L501.9520, L501.38516, L500.4050, L500.4100 #### [facility] [address] [place], [address] Creatinine [Mass/Vol] 1.62 mg/dL High 0.70-1.20 [facility] Comment on above: Performed By: #### L 506.0400, L501.9520, L501.92849, L500.4050, L500.4100 #### [facility] [address] [place], [address] GAP 13 Normal 5-15 [facility] Comment on above: Performed By: #### L 506.0400, L501.9520, L501.51918, L500.4050, L500.4100 #### [facility] [address] [place], [address] GFR/1.73 sq M.predicted among non-blacks MDRD (S/P/Bld) [Vol rate/Area] 31 mL/min/{1.73_m2} Low >60 [facility] Comment on above: Result Comment: mL/m in/1.73m2 CKD-EPI Creatinine Equation (2020) Performed By: #### L 506.0400, L501.9520, L501.17350, L500.4050, L500.4100 #### [facility] [address] [place], [address] Glucose [Mass/Vol] 92 mg/dL Normal 70-99 [facility] Comment on above: Performed By: #### L 506.0400, L501.9520, L501.22861, L500.4050, L500.4100 #### [facility] [address] [place], [address] Potassium [Moles/Vol] 4.5 mmol/L Normal 3.3-5.1 [facility] Comment on above: Performed By: #### L 506.0400, L501.9520, L501.58644, L500.4050, L500.4100 #### [facility] [address] [place], [address] Sodium [Moles/Vol] 133 mmol/L Normal 133-145 [facility] Comment on above: Performed By: #### L 506.0400, L501.9520, L501.95607, L500.4050, L500.4100 #### [facility] [address] [place], [address] Urea nitrogen [Mass/Vol] 41 mg/dL High 4-19 [facility] Comment on above: Performed By: #### L 506.0400, L501.9520, L501.02716, L500.4050, L500.4102 #### [facility] [place], [address] Carbon dioxide, total [Moles /volume] in Central venous bloodOrdered By: Mikhail Fernández on 07-17-2024 CO2 [Moles/Vol] 17.7 mmol/L Low 21.0-32.0 [facility] Chloride assayOrdered By: Neisha Fernández on 07-17-2024 Chloride [Moles/Vol] 103 mmol/L 98-108 [facility] Glomerular filtration rate ( GFR) estimation/1.73 sq m using serum, plasma, or whole bOrdered By: Mikhail Fernández on 07-17-2024 GFR/1.73 sq M.predicted among non-blacks MDRD (S/P/Bld) [Vol rate/Area] 31 mL/min/{1.73_m2} Low >60 [facility] Comment on above: mL/min/1.73m2 CKD-EP I Creatinine Equation (2020) Potassium measurement (mass/ volume)Ordered By: Mikhail Fernández on 07-17-2024 Potassium (Unsp spec) [Mass/Vol] 4.5 mmol/L 3.3-5.1 [facility] Serum creatinine measurement (mass/volume)Ordered By: Mikhail Fernández on 07-17-2024 Creatinine [Mass/Vol] 1.62 mg/dL High 0.70-1.20 [facility] Serum glucose measurement (m ass/volume)Ordered By: Mikhail Fernández on 07-17-2024 Glucose [Mass/Vol] 92 mg/dL 70-99 [facility] Serum or plasma calcium earnest urement (mass/volume)Ordered By: Mikhail Fernández on 07-17-2024 Calcium [Mass/Vol] 10.3 mg/dL 7.6-11.0 [facility] Serum or plasma urea nitroge n measurement (mass/volume)Ordered By: Mikhail Fernández on 07-17-2024 Urea nitrogen [Mass/Vol] 41 mg/dL High 4-19 [facility] Sodium levelOrdered By: Blayne Fernández on 07-17-2024 Sodium [Moles/Vol] 133 mmol/L 133-145 [facility] Echo Completeon 07-02-2024 Echo Complete [facility] [address] [place] [address] Echo Complete 07/02/24 1252 MR#: [id number] Acct: [id number] Name: BRIAN KELLER Rep #: [id number] : 1940 84 From: Darryl Thomason MD Attending Dr: HERMAN Terrazas Status: REG CL I Ordering Dr: Mikhail Fernández Date: 07/02/24 Location: [facility] Sex: F C Admitted: Reason For Study [...] Terrazas Date Dictated: 07/02/24 1252 Date Transcribed: 07/02/241447 Boom Stick Man: Signed Normal [facility] Echocardiogram study reportO rdered By: Darryl Thomason on 07-02-2024 Study report [facility] [address] [place] [address] Echo Complete 07/02/24 1252 MR#: [id number] Acct: [id number] Name: BRIAN KELLER Rep #:[id number] : 1940 84 From: Darryl Berry Attending Dr: HERMAN Trerazas atus: REG CLI Ordering Dr: Mikhail Fernández Date: 07/02/24 Location: [facility] Sex: F C Admitted: Reason For Study [...] ~ Date Dictated: 07/02/24 1252 Date Transcribed: 07/02/248 Boom Stick Man: Signed [facility] Work Phone: Cardiology Visit Reporton Cardiology Visit Report [facility] [place] [address] OFFICE VISIT Date of Service: 07/01/24 MR#: [id number] Acct: [id number] Name: BRIAN KELLER Rep #: [id number] : 1940 Provider: HERMAN Terrazas Age/Sex: 84/F [place] [facility] [place] Status: Signed Agree with assessment and [...] Monitor Intake Visit Reasons: 4 WK FU Fee Clerk Required: No Is patient in pain?: No [...] Const: Negative (more content not included)... Normal [facility] Anion gap in Serum or Plasma Ordered By: Mikhail Fernández on 06-16-2024 Anion gap [Moles/Vol] 13 mmol/L - [facility] BUN/creatinine ratioOrdered By: Mikhail Fernández on 06-16-2024 Urea nitrogen/Creatinine [Mass ratio] 17.3 mg/mg - [facility] Basic Metabolic Profile (BMP )on 06-16-2024 BUN/CRE 17.3 RATIO Normal - [facility] Comment on above: Performed By: #### L 500.2500 #### [facility] [place], [address] Calcium [Mass/Vol] 9.8 mg/dL Normal 7.6-11.0 [facility] Comment on above: Performed By: #### L 500.2500 #### [facility] [address] [place], [address] Chloride [Moles/Vol] 94 mmol/L Low 98-108 [facility] Comment on above: Performed By: #### L 500.2500 #### [facility] [address] [place], [address] CO2 [Moles/Vol] 24.3 mmol/L Normal 21.0-32.0 [facility] Comment on above: Performed By: #### L 500.2500 #### [facility] [address] [place], [address] Creatinine [Mass/Vol] 1.15 mg/dL Normal 0.70-1.20 [facility] Comment on above: Performed By: #### L 500.2500 #### [facility] [address] [place], [address] GAP 13 Normal 5-15 [facility] Comment on above: Performed By: #### L 500.2500 #### [facility] [address] [place], [address] GFR/1.73 sq M.predicted among non-blacks MDRD (S/P/Bld) [Vol rate/Area] 46 mL/min/{1.73_m2} Low >60 [facility] Comment on above: Result Comment: mL/m in/1.73m2 CKD-EPI Creatinine Equation (2020) Performed By: #### L 500.2500 #### [facility] [address] [place], [address] Glucose [Mass/Vol] 113 mg/dL High 70-99 [facility] Comment on above: Performed By: #### L 500.2500 #### [facility] [address] [place], [address] Potassium [Moles/Vol] 3.3 mmol/L Normal 3.3-5.1 [facility] Comment on above: Performed By: #### L 500.2500 #### [facility] [address] [place], [place], [address] Sodium [Moles/Vol] 131 mmol/L Low 133-145 [facility] Comment on above: Performed By: #### L 500.2500 #### [facility] [address] [place], [place], [address] Urea nitrogen [Mass/Vol] 20 mg/dL High 4-19 [facility] Comment on above: Performed By: #### L 500.2500 #### [facility] [address] [place], [place], [address] Carbon dioxide, total [Moles /volume] in Central venous bloodOrdered By: Mikhail Fernández on 06-16-2024 CO2 [Moles/Vol] 24.3 mmol/L 21.0-32.0 [facility] Chloride assayOrdered By: Neisha Fernández on 06-16-2024 Chloride [Moles/Vol] 94 mmol/L Low 98-108 [facility] Glomerular filtration rate ( GFR) estimation/1.73 sq m using serum, plasma, or whole bOrdered By: Mikhail Fernández on 06-16-2024 GFR/1.73 sq M.predicted among non-blacks MDRD (S/P/Bld) [Vol rate/Area] 46 mL/min/{1.73_m2} Low >60 [facility] Comment on above: mL/min/1.73m2 CKD-EP I Creatinine Equation (2020) Potassium measurement (mass/ volume)Ordered By: Mikhail Fernández on 06-16-2024 Potassium (Unsp spec) [Mass/Vol] 3.3 mmol/L 3.3-5.1 [facility] Serum creatinine measurement (mass/volume)Ordered By: Mikhail Fernández on 06-16-2024 Creatinine [Mass/Vol] 1.15 mg/dL 0.70-1.20 [facility] Serum glucose measurement (m ass/volume)Ordered By: Mikhail Fernández on 06-16-2024 Glucose [Mass/Vol] 113 mg/dL High 70-99 [facility] Serum or plasma calcium earnest urement (mass/volume)Ordered By: Mikhail Fernández on 06-16-2024 Calcium [Mass/Vol] 9.8 mg/dL 7.6-11.0 [facility] Serum or plasma urea nitroge n measurement (mass/volume)Ordered By: Mikhail Fernández on 06-16-2024 Urea nitrogen [Mass/Vol] 20 mg/dL High 4-19 [facility] Sodium levelOrdered By: Blayne Fernández on 06-16-2024 Sodium [Moles/Vol] 131 mmol/L Low 133-145 [facility] 12 Lead E[place] [facility] [place] 06-05-2024 12 Lead EKG performed by [facility] [address] [place] [address] 12 Lead EKG performed [place] [facility] [place] 06/05/24 154 MR#: [id number] Acct: [id number] Name: BRIAN KELLER Rep #: [id number] : 1940 84 From: Mikhail OVERTON Attending Dr: HERMAN Terrazas Status: DEP B Ordering Dr: Mikhail Fernández Date: 06/05/24 Location: [facility] [place] Sex: F C Admitted: BMS/12 Lead EKG performed [place] [facility] [place] ECG Report Interpretation At rial fibrillation -Old anterior infarct. - Diffuse nonspecific T-abnormality. ABNORMALNo New Changes Compared to ECG 05/15/2023 Electronically signed on 06/09/2024 at 14:[address] Orlando Florez Software Version [id number] 06/09/24 1418 Date Mikhail OVERTON CC: Dr. Ángel Rivera MD Date Dictated: 06/05/24 154 Date Transcribed: 06/05/241542 Boom Stick Man: FREDDIE Signed Normal [facility] Cardiology Visit Reporton Cardiology Visit Report [facility] [address] [place] [address] OFFICE VISIT Date of Service: 06/05/24 MR#: [id number] Acct: [id number] Name: BRIAN KELLER Rep #: [id number] : 1940 Provider: HERMAN Terrazas Age/Sex: 84/F [place] [facility] [place] Status: Signed Agree with the assessment [...] NIBP Intake Visit Reasons: 6 M FU Fee Clerk Required: No Accompanied by: Self Is patient in pain?: No Allergies No Known Allergies Allergy (Verified 10/11/24 16:12) Medications ???Medication ???Instructions ???Recorded ???Confirmed ???Type [...] Muscle ach (more content not included)... Normal [facility] L503.7505on 06-05-2024 Natriuretic peptide B (Bld) [Mass/Vol] 6786 pg/mL High <=1800 [facility] Comment on above: Result Comment: Hear t Failure Unlikely: < 300 pg/mL Heart Failure Likely < 50 Years: > 450 pg/mL 50-75 Years: > 900 pg/mL >75 Years: > 1800 pg/mL Performed By: #### L 506.0400, L501.9520, L501.19681, L500.4050, L500.4100 #### [facility] [address] [place], [place], [address] Natriuretic peptide.B prohor soraya N-Terminal [Mass/Vol]Ordered By: Mikhail Fernández on 06-05-2024 Natriuretic peptide B (Bld) [Mass/Vol] 6786 pg/mL High <1800 [facility] Comment on above: Heart Failure Unlike ly: < 300 pg/mLHeart Failure Likely< 50 Years: > 450 pg/mL50-75 Years: > 900 pg/mL>75 Years: > 1800 pg/mL Natriuretic peptide.B prohor soraya N-Terminal [Mass/volume] in Serum or PlasmaOrdered By: Mikhail Fernández on 06-05-2024 Natriuretic peptide.B prohormone N-Terminal [Mass/Vol] 6786 pg/mL High <1800 [facility] Comment on above: Heart Failure Unlike ly: < 300 pg/mLHeart Failure Likely< 50 Years: > 450 pg/mL50-75 Years: > 900 pg/mL>75 Years: > 1800 pg/mL Calprotectin, Stoolon [address] 80 ug/g Normal 0-120 [facility] Comment on above: Result Comment: Conc entration Interpretation Follow-Up < 5 - 50 ug/g Normal None >50 -120 ug/g Borderline Re-evaluate in 4-6 weeks >120 ug/g Abnormal Repeat as clinically indicated Performed at: - [facility] [id number] Director Of Manufacturing: Kaylan Lorenzo MD, Phone: [phone] Performed By: #### L 506.0400, L501.9520, L501.87249, L500.4050, L500.4100 #### [facility] [address] [facility] [place], [address] Celiac Disease Profileon ENDOMYSIAL IGA Negative Normal Negative [facility] Comment on above: Performed By: #### L 506.0400, L501.9520, L501.99873, L500.4050, L500.4100 #### [facility] [address] [place], [place], [address] IMMUNOGLOB A QN 253 mg/dL Normal 64-422 [facility] Comment on above: Result Comment: Perf ormed at: - [facility] [address] [id number] Director Of Manufacturing: Alfonso Packer PhD, Phone: [phone] Performed By: #### L 506.0400, L501.9520, L501.47322, L500.4050, L500.4100 #### [facility] [address] [place], [place], [address] tTG IGA <2 Normal 0-3 [facility] Comment on above: Result Comment: Nega tive 0 - 3 Weak Positive 4 - 10 Positive >10 Tissue Transglutaminase (tTG) has been identified as the endomysial antigen. Studies have demonstr- ated that endomysial IgA antibodies have over 99% specificity for gluten sensitive enteropathy. Performed By: #### L 506.0400, L501.9520, L501.14158, L500.4050, L500.4100 #### [facility] [address] [place], [address] C. difficile DNA EDGARDO+probe Q l (Unsp spec)Ordered By: Alfonso Ruano on 04-23-2024 Clostridioides difficile (PCR) [facility] CDIFF (PCR)on 04-23-2024 CDIFF Pending 027 027 NAP1-B1 Presumptive Negative *for epidemiolologic???use C. Diff PCR Negative- No toxigenic C. Diff Detected Normal [facility] Comment on above: Performed By: #### L 506.0400, L501.9520, L501.32896, L500.4050, L500.4100 #### [facility] [address] [place], [place], [address] Calprotectin stoolOrdered By : Alfonso Ruano on 04-23-2024 Calprotectin stool 80 ug/g 0-120 [facility] Comment on above: Concentration Interp retation Follow-Up< 5 - 50 ug/g Normal None>50 -120 ug/g Borderline Re-evaluate in 4-6 weeks >120 ug/g Abnormal Repeat as clinically indicatedPerformed at: - [facility] [id number] Director: Kaylan Lorenzo MD, Phone: [phone] Stool Calprotectin 80 ug/g 0-120 [facility] Comment on above: Concentration Interp retation Follow-Up< 5 - 50 ug/g Normal None>50 -120 ug/g Borderline Re-evaluate in 4-6 weeks >120 ug/g Abnormal Repeat as clinically indicatedPerformed at: BN - [facility] [address] [id number] Director: Kaylan Lorenzo MD, Phone: [phone] Clostridium difficile detect ion by polymerase chain reactionOrdered By: Alfonso Ruano on 04-23-2024 C. difficile DNA EDGARDO+probe Ql (Unsp spec) [facility] CRPon 04-22-2024 C-REACTIVE PROT < 3.00 Normal 0.0-3.0 [facility] Comment on above: Order Comment: PHILIPPE HARRIS WAS GIVEN A STOOL KIT WILL RETURN SAMPLE [id number] WERE DONE Performed By: #### L 506.0400, L501.9520, L501.80377, L500.4050, L500.4100 #### [facility] [address] [place], [place], [address] CRP [Mass/Vol]Ordered By: Sallie Ruano on 04-22-2024 C-Reactive Protein Extended Range < 3.00 mg/L 0.0-3.0 [facility] Endomysial IgA antibody assa yOrdered By: Alfonso Ruano on 04-22-2024 Endomysial IgA Antibody Negative Negative [facility] IgA [Mass/Vol]Ordered By: Sallie Ruano on 04-22-2024 Immunoglobulin A 253 mg/dL 64-422 [facility] Comment on above: Performed at: [facility] [address] [id number] Director: Alfonso Packer PhD, Phone: [phone] Serum or plasma C reactive p rotein measurement (mass/volume)Ordered By: Alfonso Ruano on 04-22-2024 CRP [Mass/Vol] mg/L 0.0-3.0 [facility] Serum or plasma IgA measurem ent (mass/volume)Ordered By: Alfonso Ruano on 04-22-2024 IgA [Mass/Vol] 253 mg/dL 64-422 [facility] Comment on above: Performed at: [facility] [address] [id number] Director: Alfonso Packer PhD, Phone: [phone] Serum tissue transglutaminas e (tTG) IgA antibody assay (units/volume)Ordered By: Alfonso Ruano on 04-22-2024 tTG IgA Qn (S) <2 U/mL 0-3 [facility] Comment on above: Negative 0 - 3 Weak Positive 4 - 10 Positive >10 Tissue Transglutaminase (tTG) has been identified as the endomysial antigen. Studies have demonstr- ated that endomysial IgA antibodies have over 99% specificity for gluten sensitive enteropathy. tTG IgA Qn (S)Ordered By: Sallie Ruano on 04-22-2024 Tissue Transglutaminase IgA Ab <2 U/mL 0-3 [facility] Comment on above: Negative 0 - 3 Weak Positive 4 - 10 Positive >10 Tissue Transglutaminase (tTG) has been identified as the endomysial antigen. Studies have demonstr- ated that endomysial IgA antibodies have over 99% specificity for gluten sensitive enteropathy. Albumin to globulin ratioOrd ered By: Ángel Rivera on 03-18-2024 Albumin/Globulin [Mass ratio] 1.4 {ratio} 0.9-2.4 [facility] Bilirubin, totalOrdered By: Ángel Rivera on 03-18-2024 Bilirubin [Mass/Vol] 0.60 mg/dL 0.20-1.00 [facility] Comment on above: For patients on eltr ombopag therapy, use of Dimension [place] TBIL is not recommended. Blood urea nitrogen (BUN)/cr eatinine ratioOrdered By: Ángel Rivera on 03-18-2024 Urea nitrogen/Creatinine [Mass ratio] 25.7 mg/mg High 10-20 [facility] Carbon dioxide measurementOr dered By: Ángel Rivera on 03-18-2024 CO2 [Moles/Vol] 26.0 mmol/L 21.0-32.0 [facility] Chloride measurementOrdered By: Ángel Rivera on 03-18-2024 Chloride [Moles/Vol] 101 mmol/L 98-107 [facility] Comprehensive Metabolic Prof ilon 03-18-2024 Albumin [Mass/Vol] 4.0 g/dL Normal 3.2-5.0 [facility] Comment on above: Performed By: #### L 506.0400, L501.9532, L501.64921, L500.4050, L500.4100 #### [facility] [place], [address] Albumin/Globulin [Mass ratio] 1.4 {ratio} Normal 0.9-2.4 [facility] Comment on above: Performed By: #### L 506.0400, L501.9520, L501.63981, L500.4050, L500.4100 #### [facility] [address] [place], [address] ALK P 62 U/L Normal 45-117 [facility] Comment on above: Performed By: #### L 506.0400, L501.9520, L501.70362, L500.4050, L500.4100 #### [facility] [address] [place], [address] ALT [Catalytic activity/Vol] 28 U/L Normal 13-56 [facility] Comment on above: Performed By: #### L 506.0400, L501.9520, L501.23002, L500.4050, L500.4100 #### [facility] [address] [place], [address] AST [Catalytic activity/Vol] 23 U/L Normal 15-37 [facility] Comment on above: Performed By: #### L 506.0400, L501.9520, L501.94052, L500.4050, L500.4100 #### [facility] [address] [place], [address] Bilirubin [Mass/Vol] 0.60 mg/dL Normal 0.20-1.00 [facility] Comment on above: Result Comment: For patients on eltrombopag therapy, use of Dimension [place] TBIL is not recommended. Performed By: #### L 506.0400, L501.9520, L501.20846, L500.4050, L500.4100 #### [facility] [address] [place], [address] BUN/CRE 25.7 RATIO High 10-20 [facility] Comment on above: Performed By: #### L 506.0400, L501.9520, L501.21465, L500.4050, L500.4100 #### [facility] [address] [place], [address] CA,Total 10.1 mg/dL Normal 8.5-10.1 [facility] Comment on above: Performed By: #### L 506.0400, L501.9520, L501.26350, L500.4050, L500.4100 #### [facility] [address] [place], [address] Chloride [Moles/Vol] 101 mmol/L Normal 98-107 [facility] Comment on above: Performed By: #### L 506.0400, L501.9520, L501.97137, L500.4050, L500.4100 #### [facility] [address] [place], [address] CO2 [Moles/Vol] 26.0 mmol/L Normal 21.0-32.0 [facility] Comment on above: Performed By: #### L 506.0400, L501.9520, L501.79681, L500.4050, L500.4100 #### [facility] [address] [place], [address] Creatinine [Mass/Vol] 1.13 mg/dL High 0.55-1.02 [facility] Comment on above: Result Comment: The validity of the calculated GFR GFRAA in patients over 70 years has not been determined. Clinical correlation is essential. Performed By: #### L 506.0400, L501.9520, L501.98995, L500.4050, L500.4100 #### [facility] [address] [place], [address] EST GFR - AA 59 mL/min Low >60 [facility] Comment on above: Result Comment: Afri can Swiss GFR Calc Performed By: #### L 506.0400, L501.9520, L501.36967, L500.4050, L500.4100 #### [facility] [address] [place], [address] GAP 7 Normal 5-15 [facility] Comment on above: Performed By: #### L 506.0400, L501.9520, L501.13727, L500.4050, L500.4100 #### [facility] [address] [place], [address] GFR/1.73 sq M.predicted among non-blacks MDRD (S/P/Bld) [Vol rate/Area] 49 mL/min/{1.73_m2} Low >60 [facility] Comment on above: Result Comment: Non- GFR Calc Performed By: #### L 506.0400, L501.9520, L501.90365, L500.4050, L500.4100 #### [facility] [address] [place], [address] Globulin (S) [Mass/Vol] 2.9 g/dL Normal 2.2-4.2 [facility] Comment on above: Performed By: #### L 506.0400, L501.9520, L501.05535, L500.4050, L500.4100 #### [facility] [address] [place], [address] Glucose [Mass/Vol] 90 mg/dL Normal 74-106 [facility] Comment on above: Performed By: #### L 506.0400, L501.9520, L501.68684, L500.4050, L500.4100 #### [facility] [address] [place], [address] Potassium [Moles/Vol] 4.5 mmol/L Normal 3.5-5.1 [facility] Comment on above: Performed By: #### L 506.0400, L501.9520, L501.19605, L500.4050, L500.4100 #### [facility] [address] [place], [address] Sodium [Moles/Vol] 134 mmol/L Low 136-145 [facility] Comment on above: Performed By: #### L 506.0400, L501.9520, L501.77104, L500.4050, L500.4100 #### [facility] [address] [place], [address] T PROT 6.9 g/dL Normal 6.4-8.2 [facility] Comment on above: Performed By: #### L 506.0400, L501.9520, L501.44049, L500.4050, L500.4100 #### [facility] [address] [place], [address] Urea nitrogen [Mass/Vol] 29 mg/dL High 7-18 [facility] Comment on above: Performed By: #### L 506.0400, L501.9520, L501.46056, L500.4050, L500.4100 #### [facility] [address] [place], [address] Direct serum free thyroxine (FT4) measurementOrdered By: Ángel Rivera on 03-18-2024 Free T4 [Mass/Vol] 1.35 ng/dL 0.76-1.46 [facility] Estimated glomerular filtrat ion rate (GFR) AmericanOrdered By: Ángel Rivera on 03-18-2024 Estimated GFR (MDRD) Amer 59 mL/min Low >60 [facility] Comment on above: GFR Calc Free T3on 03-18-2024 Free T3 [Mass/Vol] 2.4 pg/mL Normal 2.18-3.98 [facility] Comment on above: Performed By: #### L 506.0400, L501.9520, L501.96546, L500.4050, L500.4100 #### [facility] [address] [place], [address] Free Y1Oitvsrk By: Ángel potter on 03-18-2024 Free T3 [Mass/Vol] 2.4 pg/mL 2.18-3.98 [facility] Free Triiodothyronine (T3) pg/dL 2.4 pg/mL 2.18-3.98 [facility] Glomerular filtration rate ( GFR) estimationOrdered By: Ángel Rivera on 03-18-2024 Estimated GFR (MDRD) Non-Af Amer 49 mL/min Low >60 [facility] Comment on above: Non- GFR Calc GFR/1.73 sq M.predicted among non-blacks MDRD (S/P/Bld) [Vol rate/Area] 49 mL/min/{1.73_m2} Low >60 [facility] Comment on above: Non- GFR Calc Glucose measurementOrdered B y: Ángel Rivera on 03-18-2024 Glucose [Mass/Vol] 90 mg/dL 74-106 [facility] High density lipoprotein (HD L) measurementOrdered By: Ángel Rivera on 03-18-2024 Cholesterol in HDL [Mass/Vol] 63 mg/dL >40 [facility] Comment on above: The drugs N-Acetylcy steine and Metamizole may falsely depress this assay. Reference Range HDL <40 mg/dL Low HDL Cholesterol HDL >or= 60 mg/dL High HDL Cholesterol Laboratory - Chemistry and C hemistry - challengeOrdered By: Ángel Rivera on 03-18-2024 AST [Catalytic activity/Vol] 23 U/L 15-37 [facility] Lipid Profileon 03-18-2024 Cholesterol [Mass/Vol] 185 mg/dL Normal 200 [facility] Comment on above: Result Comment: <200 mg/dL Desirable 200-240 mg/dL Borderline >240 mg/dL High Risk Performed By: #### L 506.0400, L501.9520, L501.90693, L500.4050, L500.4100 #### [facility] [address] [place], [address] Cholesterol in HDL [Mass/Vol] 63 mg/dL Normal [facility] Comment on above: Result Comment: The drugs N-Acetylcysteine and Metamizole may falsely depress this assay. Reference Range HDL <40 mg/dL Low HDL Cholesterol HDL >or= 60 mg/dL High HDL Cholesterol Performed By: #### L 506.0400, L501.9520, L501.52601, L500.4050, L500.4100 #### [facility] [address] [place], [address] Cholesterol in LDL [Mass/Vol] 89 mg/dL Normal 0-130 [facility] Comment on above: Performed By: #### L 506.0400, L501.9520, L501.94578, L500.4050, L500.4100 #### [facility] [address] [place], [address] Cholesterol in VLDL [Mass/Vol] 33 mg/dL Normal 5-40 [facility] Comment on above: Performed By: #### L 506.0400, L501.9520, L501.70816, L500.4050, L500.4100 #### [facility] [address] [place], [address] Triglyceride [Mass/Vol] 165 mg/dL Normal [facility] Comment on above: Result Comment: The drugs N-Acetylcysteine and Metamizole may falsely depress this assay. Serum Triglycerides Reference Interval Normal <150 mg/dL Borderline high 150 - 199 mg/dL High 200 - 499 mg/dL Very High > or = 500 mg/dL Performed By: #### L 506.0400, L501.9520, L501.39373, L500.4050, L500.4100 #### [facility] [address] [place], [address] Low density lipoprotein (LDL ) cholesterol measurementOrdered By: Ángel Rivera on 03-18-2024 Cholesterol in LDL [Mass/Vol] 89 mg/dL 0-130 [facility] Potassium measurementOrdered By: Ángel Rivera on 03-18-2024 Potassium [Moles/Vol] 4.5 mmol/L 3.5-5.1 [facility] Serum anion gap measurementO rdered By: Ángel Rivera on 03-18-2024 Anion gap [Moles/Vol] 7 mmol/L 5-15 [facility] Serum globulin measurementOr dered By: Ángel Rivera on 03-18-2024 Globulin (S) [Mass/Vol] 2.9 g/dL 2.2-4.2 [facility] Serum or plasma alanine faustin otransferase (ALT) measurementOrdered By: Ángel Rivera on 03-18-2024 ALT [Catalytic activity/Vol] 28 U/L 13-56 [facility] Serum or plasma albumin earnest urement (mass/volume)Ordered By: Ángel Rivera on 03-18-2024 Albumin [Mass/Vol] 4.0 g/dL 3.2-5.0 [facility] Serum or plasma alkaline josefina sphatase measurementOrdered By: Ángel Rivera on 03-18-2024 ALP [Catalytic activity/Vol] 62 U/L 45-117 [facility] Serum or plasma calcium earnest urement (mass/volume)Ordered By: Ángel Rivera on 03-18-2024 Calcium [Mass/Vol] 10.1 mg/dL 8.5-10.1 [facility] Serum or plasma cholesterol measurement (mass/volume)Ordered By: Ángel Rivera on 03-18-2024 Cholesterol [Mass/Vol] 185 mg/dL <200 [facility] Comment on above: <200 mg/dL Desirable 200-240 mg/dL Borderline >240 mg/dL High Risk Serum or plasma creatinine m easurement (mass/volume)Ordered By: Ángel Rivera on 03-18-2024 Creatinine [Mass/Vol] 1.13 mg/dL High 0.55-1.02 [facility] Comment on above: The validity of the calculated GFR & GFRAA in patients over 70 years has not been determined. Clinical correlation is essential. Serum or plasma thyroid stim ulating hormone (TSH) measurement (units/volume)Ordered By: Ángel Rivera on 03-18-2024 TSH Qn 1.530 uIU/mL 0.358-3.740 [facility] Serum or plasma urea nitroge n measurement (mass/volume)Ordered By: Ángel Rivera on 03-18-2024 Urea nitrogen [Mass/Vol] 29 mg/dL High 7-18 [facility] Sodium levelOrdered By: Ángel Rivera on 03-18-2024 Sodium [Moles/Vol] 134 mmol/L Low 136-145 [facility] T4 Free Directon 03-18-2024 T4 FREE DIRECT 1.35 ng/dL Normal 0.76-1.46 [facility] Comment on above: Performed By: #### L 506.0400, L501.9520, L501.86777, L500.4050, L500.4100 #### [facility] [address] [place], [place], [id number] TSH QnOrdered By: Ángel murillo on 03-18-2024 Thyroid Stimulating Hormone (TSH) 1.530 uIU/mL 0.358-3.740 [facility] Thyroid Stim Hormone (TSH)on 03-18-2024 TSH 1.530 uIU/mL Normal 0.358-3.740 [facility] Comment on above: Performed By: #### L 506.0400, L501.9520, L501.45098, L500.4050, L500.4100 #### [facility] [address] [place], [place], [id number] Total proteinOrdered By: Holley Rivera on 03-18-2024 Protein [Mass/Vol] 6.9 g/dL 6.4-8.2 [facility] Triglycerides measurementOrd ered By: Ángel Rivera on 03-18-2024 Triglyceride [Mass/Vol] 165 mg/dL <199 [facility] Comment on above: The drugs N-Acetylcy steine and Metamizole may falsely depress this assay.Serum Triglycerides Reference Interval Normal <150 mg/dL Borderline high 150 - 199 mg/dL High 200 - 499 mg/dL Very High > or = 500 mg/dL Very low density lipoprotein (VLDL) cholesterol measurementOrdered By: Ángel Rivera on 03-18-2024 Very low density lipoprotein (VLDL) cholesterol measurement 33 mg/dL -40 [facility] VLDL Cholesterol 33 mg/dL [facility] Basic Metabolic Profile (BMP )on 11-22-2023 BUN/CRE 23.8 RATIO High 11-30 [facility] Comment on above: Performed By: #### L 506.0400, L501.9520, L501.71976, L500.4050, L500.4100 #### [facility] [address] [place], [address] CA,Total 10.5 mg/dL High 8.5-10.1 [facility] Comment on above: Performed By: #### L 506.0400, L501.9520, L501.57225, L500.4050, L500.4100 #### [facility] [address] [place], [address] Chloride [Moles/Vol] 100 mmol/L Normal 98-107 [facility] Comment on above: Performed By: #### L 506.0400, L501.9520, L501.60794, L500.4050, L500.4100 #### [facility] [address] [place], [address] CO2 [Moles/Vol] 24.0 mmol/L Normal 21.0-32.0 [facility] Comment on above: Performed By: #### L 506.0400, L501.9520, L501.23678, L500.4050, L500.4100 #### [facility] [address] [place], [address] Creatinine [Mass/Vol] 0.97 mg/dL Normal 0.55-1.02 [facility] Comment on above: Result Comment: The validity of the calculated GFR GFRAA in patients over 70 years has not been determined. Clinical correlation is essential. Performed By: #### L 506.0400, L501.9520, L501.22429, L500.4050, L500.4100 #### [facility] [address] [place], [address] EST GFR - AA 70 mL/min Normal >60 [facility] Comment on above: Result Comment: Afri can Swiss GFR Calc Performed By: #### L 506.0400, L501.9520, L501.97298, L500.4050, L500.4100 #### [facility] [address] [place], [address] GAP 8 Normal 5-15 [facility] Comment on above: Performed By: #### L 506.0400, L501.9520, L501.58975, L500.4050, L500.4100 #### [facility] [address] [place], [address] GFR/1.73 sq M.predicted among non-blacks MDRD (S/P/Bld) [Vol rate/Area] 58 mL/min/{1.73_m2} Low >60 [facility] Comment on above: Result Comment: Non- GFR Calc Performed By: #### L 506.0400, L501.9520, L501.44347, L500.4050, L500.4100 #### [facility] [address] [place], [address] Glucose [Mass/Vol] 104 mg/dL Normal 74-106 [facility] Comment on above: Result Comment: Fast ing Glucose result from 100 to 125 mg/dL suggests IMPAIRED HOMEOSTASIS per A.D.A. criteria. Performed By: #### L 506.0400, L501.9520, L501.34437, L500.4050, L500.4100 #### [facility] [address] [place], [address] Potassium [Moles/Vol] 4.3 mmol/L Normal 3.5-5.1 [facility] Comment on above: Performed By: #### L 506.0400, L501.9520, L501.84322, L500.4050, L500.4100 #### [facility] [address] [place], [address] Sodium [Moles/Vol] 131 mmol/L Low 136-145 [facility] Comment on above: Performed By: #### L 506.0400, L501.9520, L501.78864, L500.4050, L500.4100 #### [facility] [address] [place], [address] Urea nitrogen [Mass/Vol] 23 mg/dL High 7-18 [facility] Comment on above: Performed By: #### L 506.0400, L501.9520, L501.43659, L500.4050, L500.4100 #### [facility] [address] [place], [address] CBC-Complete Blood Cnt No Di ffon 11-22-2023 Erythrocyte distribution width (RBC) [Ratio] 12.7 % Normal 11.6-14.6 [facility] Comment on above: Performed By: #### L 506.0400, L501.9520, L501.34407, L500.4050, L500.4100 #### [facility] [address] [place], [address] Hematocrit (Bld) [Volume fraction] 39.8 % Normal 37-47 [facility] Comment on above: Performed By: #### L 506.0400, L501.9520, L501.52846, L500.4050, L500.4100 #### [facility] [address] [place], [address] Hemoglobin (Bld) [Mass/Vol] 13.2 g/dL Normal 12.0-15.0 [facility] Comment on above: Performed By: #### L 506.0400, L501.9520, L501.35762, L500.4050, L500.4100 #### [facility] [address] [place], [address] MCH (RBC) [Entitic mass] 29.9 pg Normal 27.0-32.0 [facility] Comment on above: Performed By: #### L 506.0400, L501.9520, L501.67472, L500.4050, L500.4100 #### [facility] [address] [place], [address] MCHC (RBC) [Mass/Vol] 33.2 g/dL Normal 32-36 [facility] Comment on above: Performed By: #### L 506.0400, L501.9520, L501.50556, L500.4050, L500.4100 #### [facility] [address] [place], [address] MCV (RBC) [Entitic vol] 90.0 fL Normal 81-99 [facility] Comment on above: Performed By: #### L 506.0400, L501.9520, L501.19506, L500.4050, L500.4100 #### [facility] [address] [place], [address] Platelet mean volume (Bld) [Entitic vol] 9.1 fL Normal 6.2-12.0 [facility] Comment on above: Performed By: #### L 506.0400, L501.9520, L501.28533, L500.4050, L500.4100 #### [facility] [address] [place], [address] Platelets (Bld) [#/Vol] 328 10*3/uL Normal 150-450 [facility] Comment on above: Performed By: #### L 506.0400, L501.9520, L501.37660, L500.4050, L500.4100 #### [facility] [address] [place], [address] RBC (Bld) [#/Vol] 4.42 10*6/uL Normal 4.2-5.4 [facility] Comment on above: Performed By: #### L 506.0400, L501.9520, L501.33604, L500.4050, L500.4100 #### [facility] [address] [place], [address] RDW SD 42.0 fl Normal 35.1-43.9 [facility] Comment on above: Performed By: #### L 506.0400, L501.9520, L501.23291, L500.4050, L500.4100 #### [facility] [address] [place], [address] WBC (Bld) [#/Vol] 10.2 10*3/uL Normal 4.4-11.0 [facility] Comment on above: Performed By: #### L 506.0400, L501.9520, L501.66482, L500.4050, L500.4100 #### [facility] [address] [place], [address] Cardiology Visit Reporton Cardiology Visit Report [facility] [address] [place] [address] OFFICE VISIT Date of Service: 11/22/23 MR#: [id number] Acct: [id number] Name: BRIAN KELLER Rep #: [id number] : 1940 Provider: MELISSA koch Age/Sex: 83/F [place] [facility] [place] Status: Signed [facility] History of Present Illness Details: This is a very pleasant 83-year-old active white female who presents to the office today for a cardiovascular visit. She was diagnosed with atrial fibrillation God[place] 2023. And her heart rate has been controlled [...] the past year?: No PFSH Medical History (Reviewed 11/22/23 @ 16:09 by Brina Cintron PIANO MACHINE OPERATOR, PIANO MACHINE OPERATOR-C) Hypothyroidism Atrial fibrillation Diarrhea Hypertension Rheumatoid arthritis [...] for lightheadedness (more content not included)... Normal [facility] Basic Metabolic Profile (BMP )on 09-19-2023 BUN/CRE 21.9 RATIO High 10-20 [facility] Comment on above: Performed By: #### L 501.9520, L100.0100, L501.79878, L506.0400, L500.2500, L500.4100 #### [facility] [address] [place], [address] CA,Total 9.4 mg/dL Normal 8.5-10.1 [facility] Comment on above: Performed By: #### L 501.9520, L100.0100, L501.82974, L506.0400, L500.2500, L500.4100 #### [facility] [address] [place], [address] Chloride [Moles/Vol] 97 mmol/L Low 98-107 [facility] Comment on above: Performed By: #### L 501.9520, L100.0100, L501.39119, L506.0400, L500.2500, L500.4100 #### [facility] [address] [place], [address] CO2 [Moles/Vol] 24.0 mmol/L Normal 21.0-32.0 [facility] Comment on above: Performed By: #### L 501.9520, L100.0100, L501.96640, L506.0400, L500.2500, L500.4100 #### [facility] [address] [place], [address] Creatinine [Mass/Vol] 1.05 mg/dL High 0.55-1.02 [facility] Comment on above: Result Comment: The validity of the calculated GFR GFRAA in patients over 70 years has not been determined. Clinical correlation is essential. Performed By: #### L 501.9520, L100.0100, L501.91019, L506.0400, L500.2500, L500.4100 #### [facility] [address] [place], [address] EST GFR - AA 64 mL/min Normal >60 [facility] Comment on above: Result Comment: Afri can Swiss GFR Calc Performed By: #### L 501.9520, L100.0100, L501.54436, L506.0400, L500.2500, L500.4100 #### [facility] [address] [place], [address] GAP 8 Normal 5-15 [facility] Comment on above: Performed By: #### L 501.9520, L100.0100, L501.56178, L506.0400, L500.2500, L500.4100 #### [facility] [address] [place], [address] GFR/1.73 sq M.predicted among non-blacks MDRD (S/P/Bld) [Vol rate/Area] 53 mL/min/{1.73_m2} Low >60 [facility] Comment on above: Result Comment: Non- GFR Calc Performed By: #### L 501.9520, L100.0100, L501.10174, L506.0400, L500.2500, L500.4100 #### [facility] [address] [place], [address] Glucose [Mass/Vol] 88 mg/dL Normal 74-106 [facility] Comment on above: Performed By: #### L 501.9520, L100.0100, L501.68257, L506.0400, L500.2500, L500.4100 #### [facility] [address] [place], [address] Potassium [Moles/Vol] 4.5 mmol/L Normal 3.5-5.1 [facility] Comment on above: Performed By: #### L 501.9520, L100.0100, L501.05305, L506.0400, L500.2500, L500.4100 #### [facility] [address] [place], [address] Sodium [Moles/Vol] 129 mmol/L Low 136-145 [facility] Comment on above: Performed By: #### L 501.9520, L100.0100, L501.81712, L506.0400, L500.2500, L500.4100 #### [facility] [address] [place], [address] Urea nitrogen [Mass/Vol] 23 mg/dL High 7-18 [facility] Comment on above: Performed By: #### L 501.9520, L100.0100, L501.66033, L506.0400, L500.2500, L500.4100 #### [facility] [address] [place], [address] CBC W/Diff, Automatedon 08-0 8-4 Absolute Lymph 1.13 X10 3/uL Normal 0.83-4.51 [facility] Comment on above: Performed By: #### L 501.9520, L100.0100, L501.00578, L506.0400, L500.2500, L500.4100 #### [facility] [address] [place], [address] Absolute Neut 6.7 X10 3/uL Normal 2.0-7.7 [facility] Comment on above: Performed By: #### L 501.9520, L100.0100, L501.61018, L506.0400, L500.2500, L500.4100 #### [facility] [address] [place], [address] Basophils/100 WBC (Bld) 0.8 % Normal 0-1 [facility] Comment on above: Performed By: #### L 501.9520, L100.0100, L501.08194, L506.0400, L500.2500, L500.4100 #### [facility] [address] [place], [address] Eosinophils/100 WBC (Bld) 1.2 % Normal 0-5 [facility] Comment on above: Performed By: #### L 501.9520, L100.0100, L501.78526, L506.0400, L500.2500, L500.4100 #### [facility] [address] [place], [address] Erythrocyte distribution width (RBC) [Ratio] 12.5 % Normal 11.6-14.6 [facility] Comment on above: Performed By: #### L 501.9520, L100.0100, L501.13997, L506.0400, L500.2500, L500.4100 #### [facility] [address] [place], [address] Hematocrit (Bld) [Volume fraction] 37.9 % Normal 37-47 [facility] Comment on above: Performed By: #### L 501.9520, L100.0100, L501.30441, L506.0400, L500.2500, L500.4100 #### [facility] [address] [place], [address] Hemoglobin (Bld) [Mass/Vol] 12.4 g/dL Normal 12.0-15.0 [facility] Comment on above: Performed By: #### L 501.9520, L100.0100, L501.47177, L506.0400, L500.2500, L500.4100 #### [facility] [address] [place], [address] IG% 0.500 Normal 0.0-0.9 [facility] Comment on above: Result Comment: IG% - Immature Granulocytes (promyelocytes, myelocytes and metamyelocytes) > 1% indicates that a LEFT SHIFT is Present. Performed By: #### L 501.9520, L100.0100, L501.42301, L506.0400, L500.2500, L500.4100 #### [facility] [address] [place], [address] Lymphocytes/100 WBC (Bld) 13.1 % Low 19-41 [facility] Comment on above: Performed By: #### L 501.9520, L100.0100, L501.27132, L506.0400, L500.2500, L500.4100 #### [facility] [address] [place], [address] MCH (RBC) [Entitic mass] 29.6 pg Normal 27.0-32.0 [facility] Comment on above: Performed By: #### L 501.9520, L100.0100, L501.47956, L506.0400, L500.2500, L500.4100 #### [facility] [address] [place], [address] MCHC (RBC) [Mass/Vol] 32.7 g/dL Normal 32-36 [facility] Comment on above: Performed By: #### L 501.9520, L100.0100, L501.33804, L506.0400, L500.2500, L500.4100 #### [facility] [address] [place], [address] MCV (RBC) [Entitic vol] 90.5 fL Normal 81-99 [facility] Comment on above: Performed By: #### L 501.9520, L100.0100, L501.62514, L506.0400, L500.2500, L500.4100 #### [facility] [address] [place], [address] Monocytes/100 WBC (Bld) 7.1 % Normal 0-10 [facility] Comment on above: Performed By: #### L 501.9520, L100.0100, L501.43746, L506.0400, L500.2500, L500.4100 #### [facility] [address] [place], [address] Neutrophils/100 WBC (Bld) 77.3 % High 47-70 [facility] Comment on above: Performed By: #### L 501.9520, L100.0100, L501.40872, L506.0400, L500.2500, L500.4100 #### [facility] [address] [place], [address] Nucleated RBC (Bld) [#/Vol] 0 10*3/uL Normal 0-5 [facility] Comment on above: Performed By: #### L 501.9520, L100.0100, L501.43933, L506.0400, L500.2500, L500.4100 #### [facility] [address] [place], [address] Platelet mean volume (Bld) [Entitic vol] 9.7 fL Normal 6.2-12.0 [facility] Comment on above: Performed By: #### L 501.9520, L100.0100, L501.30691, L506.0400, L500.2500, L500.4100 #### [facility] [address] [place], [address] Platelets (Bld) [#/Vol] 271 10*3/uL Normal 150-450 [facility] Comment on above: Performed By: #### L 501.9520, L100.0100, L501.88907, L506.0400, L500.2500, L500.4100 #### [facility] [address] [place], [address] RBC (Bld) [#/Vol] 4.19 10*6/uL Low 4.2-5.4 [facility] Comment on above: Performed By: #### L 501.9520, L100.0100, L501.85453, L506.0400, L500.2500, L500.4100 #### [facility] [address] [place], [address] RDW SD 41.4 fl Normal 35.1-43.9 [facility] Comment on above: Performed By: #### L 501.9520, L100.0100, L501.88474, L506.0400, L500.2500, L500.4100 #### [facility] [address] [place], [address] WBC (Bld) [#/Vol] 8.6 10*3/uL Normal 4.4-11.0 [facility] Comment on above: Performed By: #### L 501.9520, L100.0100, L501.39959, L506.0400, L500.2500, L500.4100 #### [facility] [address] [place], [address] Free T3on 09-19-2023 Free T3 [Mass/Vol] 2.2 pg/mL Normal 2.18-3.98 [facility] Comment on above: Performed By: #### L 501.9520, L100.0100, L501.82643, L506.0400, L500.2500, L500.4100 #### [facility] [address] [place], [address] Lipid Profileon 09-19-2023 Cholesterol [Mass/Vol] 175 mg/dL Normal 200 [facility] Comment on above: Result Comment: <200 mg/dL Desirable 200-240 mg/dL Borderline >240 mg/dL High Risk Performed By: #### L 501.9520, L100.0100, L501.49277, L506.0400, L500.2500, L500.4100 #### [facility] [address] [place], [address] Cholesterol in HDL [Mass/Vol] 58 mg/dL Normal [facility] Comment on above: Result Comment: The drugs N-Acetylcysteine and Metamizole may falsely depress this assay. Reference Range HDL <40 mg/dL Low HDL Cholesterol HDL >or= 60 mg/dL High HDL Cholesterol Performed By: #### L [id number], L100.0100, L501.86020, L506.0400, L500.2500, L500.4100 #### [facility] [address] [place], [address] Cholesterol in LDL [Mass/Vol] 81 mg/dL Normal 0-130 [facility] Comment on above: Performed By: #### L [id number], L100.0100, L501.21574, L506.0400, L500.2500, L500.4100 #### [facility] [address] [place], [address] Cholesterol in VLDL [Mass/Vol] 36 mg/dL Normal 5-40 [facility] Comment on above: Performed By: #### L [id number], L100.0100, L501.90905, L506.0400, L500.2500, L500.4100 #### [facility] [address] [place], [address] Triglyceride [Mass/Vol] 182 mg/dL Normal [facility] Comment on above: Result Comment: The drugs N-Acetylcysteine and Metamizole may falsely depress this assay. Serum Triglycerides Reference Interval Normal <150 mg/dL Borderline high 150 - 199 mg/dL High 200 - 499 mg/dL Very High > or = 500 mg/dL Performed By: #### L [id number], L100.0100, L501.84173, L506.0400, L500.2500, L500.4100 #### [facility] [address] [place], [address] T4 Free Directon 09-19-2023 T4 FREE DIRECT 1.26 ng/dL Normal 0.76-1.46 [facility] Comment on above: Performed By: #### L 506.0400, L501.9520, L501.53098, L500.4050, L500.4100 #### [facility] [address] [place], [address] Thyroid Stim Hormone (TSH)on 09-19-2023 TSH 2.27 uIU/mL Normal 0.358-3.74 [facility] Comment on above: Performed By: #### L 506.0400, L501.9520, L501.16888, L500.4050, L500.4100 #### [facility] [address] [place], [place], [id number] Basophil percentageOrdered B y: Orlando Almaraz on 04-24-2023 Chloride [Moles/Vol] 102 mmol/L 98-107 [facility] Glucose [Mass/Vol] 86 mg/dL 74-106 [facility] Potassium [Moles/Vol] 4.3 mmol/L 3.5-5.1 [facility] Sodium [Moles/Vol] 137 mmol/L 136-145 [facility] - Chemistry and C hemistry - challengeOrdered By: Orlando Almaraz on 04-24-2023 CO2 [Moles/Vol] 28.0 mmol/L 21.0-32.0 [facility] Urea nitrogen/Creatinine [Mass ratio] 24.5 mg/mg 10-20 [facility] No Panel InformationOrdered By: Orlando Almaraz on 04-24-2023 Estimated GFR (MDRD) Amer 73 mL/min >60 [facility] Comment on above: GFR Calc Estimated GFR (MDRD) Non-Af Amer 60 mL/min >60 [facility] Comment on above: Non- GFR Calc Serum or plasma calcium earnest urement (mass/volume)Ordered By: Orlando Almaraz on 04-24-2023 Calcium [Mass/Vol] 9.9 mg/dL 8.5-10.1 [facility] Serum or plasma creatinine m easurement (mass/volume)Ordered By: Orlando Almaraz on 04-24-2023 Creatinine [Mass/Vol] 0.94 mg/dL 0.55-1.02 [facility] Comment on above: The validity of the calculated GFR & GFRAA in patients over 70 years has not been determined. Clinical correlation is essential. Serum or plasma urea nitroge n measurement (mass/volume)Ordered By: Orlando Almaraz on 04-24-2023 Urea nitrogen [Mass/Vol] 23 mg/dL 7-18 [facility] Thin prep Papanicolaou smear with manual screeningOrdered By: Orlando Almaraz on 04-24-2023 Thin prep Papanicolaou smear with manual screening 7 5-15 [facility] Basophil percentageOrdered B y: Orlando Almaraz on 04-17-2023 Chloride [Moles/Vol] 98 mmol/L 98-107 [facility] Glucose [Mass/Vol] 89 mg/dL 74-106 [facility] Potassium [Moles/Vol] 4.1 mmol/L 3.5-5.1 [facility] Sodium [Moles/Vol] 132 mmol/L 136-145 [facility] - Chemistry and C hemistry - challengeOrdered By: Orladno Almaraz on 04-17-2023 CO2 [Moles/Vol] 28.0 mmol/L 21.0-32.0 [facility] Urea nitrogen/Creatinine [Mass ratio] 33.0 mg/mg 10-20 [facility] No Panel InformationOrdered By: Orlando Almaraz on 04-17-2023 Estimated GFR (MDRD) Amer 68 mL/min >60 [facility] Comment on above: GFR Calc Estimated GFR (MDRD) Non-Af Amer 56 mL/min >60 [facility] Comment on above: Non- GFR Calc Serum or plasma calcium earnest urement (mass/volume)Ordered By: Orlando Almaraz on 04-17-2023 Calcium [Mass/Vol] 9.6 mg/dL 8.5-10.1 [facility] Serum or plasma creatinine m easurement (mass/volume)Ordered By: Orlando Almaraz on 04-17-2023 Creatinine [Mass/Vol] 1.00 mg/dL 0.55-1.02 [facility] Comment on above: The validity of the calculated GFR & GFRAA in patients over 70 years has not been determined. Clinical correlation is essential. Serum or plasma urea nitroge n measurement (mass/volume)Ordered By: Orlando Almaraz on 04-17-2023 Urea nitrogen [Mass/Vol] 33 mg/dL 7-18 [facility] Thin prep Papanicolaou smear with manual screeningOrdered By: Orlando Almaraz on 04-17-2023 Thin prep Papanicolaou smear with manual screening 6 5-15 [facility] Basophil percentageOrdered B y: Ángel Rivera on 03-06-2023 Chloride [Moles/Vol] 103 mmol/L 98-107 [facility] Cholesterol [Mass/Vol] 192 mg/dL <200 [facility] Comment on above: <200 mg/dL Desirable 200-240 mg/dL Borderline >240 mg/dL High Risk Glucose [Mass/Vol] 85 mg/dL 74-106 [facility] Potassium [Moles/Vol] 4.2 mmol/L 3.5-5.1 [facility] Comment on above: Slight Hemolysis, Re sult may be falsely increased. Sodium [Moles/Vol] 134 mmol/L 136-145 [facility] Triglyceride [Mass/Vol] 153 mg/dL <199 [facility] Comment on above: The drugs N-Acetylcy steine and Metamizole may falsely depress this assay.Serum Triglycerides Reference Interval Normal <150 mg/dL Borderline high 150 - 199 mg/dL High 200 - 499 mg/dL Very High > or = 500 mg/dL High density lipoprotein (HD L) measurementOrdered By: Ángel Rivera on 03-06-2023 Cholesterol in HDL (Body fld) [Mass/Vol] 66 mg/dL >40 [facility] Comment on above: The drugs N-Acetylcy steine and Metamizole may falsely depress this assay. Reference Range HDL <40 mg/dL Low HDL Cholesterol HDL >or= 60 mg/dL High HDL Cholesterol Laboratory - Chemistry and C hemistry - challengeOrdered By: Ángel Rivera on 03-06-2023 CO2 [Moles/Vol] 25.0 mmol/L 21.0-32.0 [facility] Urea nitrogen/Creatinine [Mass ratio] 21.5 mg/mg 10-20 [facility] Low density lipoprotein (LDL ) cholesterol measurementOrdered By: Ángel Rivera on 03-06-2023 Cholesterol in LDL (Body fld) [Moles/Vol] 95 mg/dL 0-130 [facility] No Panel InformationOrdered By: Ángel Rivera on 03-06-2023 Estimated GFR (MDRD) Amer 78 mL/min >60 [facility] Comment on above: GFR Calc Estimated GFR (MDRD) Non-Af Amer 65 mL/min >60 [facility] Comment on above: Non- GFR Calc Free Triiodothyronine (T3) pg/dL 2.6 pg/mL 2.18-3.98 [facility] Serum or plasma calcium earnest urement (mass/volume)Ordered By: Ángel Rivera on 03-06-2023 Calcium [Mass/Vol] 9.8 mg/dL 8.5-10.1 [facility] Serum or plasma creatinine m easurement (mass/volume)Ordered By: Ángel Rivera on 03-06-2023 Creatinine [Mass/Vol] 0.88 mg/dL 0.55-1.02 [facility] Comment on above: The validity of the calculated GFR & GFRAA in patients over 70 years has not been determined. Clinical correlation is essential. Serum or plasma thyroid stim ulating hormone (TSH) measurement (units/volume)Ordered By: Ángel Rivera on 03-06-2023 TSH Qn 2.70 uIU/mL 0.358-3.74 [facility] Serum or plasma urea nitroge n measurement (mass/volume)Ordered By: Ángel Rivera on 03-06-2023 Urea nitrogen [Mass/Vol] 19 mg/dL 7-18 [facility] Thin prep Papanicolaou smear with manual screeningOrdered By: Ángel Rivera on 03-06-2023 Thin prep Papanicolaou smear with manual screening 6 5-15 [facility] Thin prep Papanicolaou smear with manual screening 1.46 ng/dL 0.76-1.46 [facility] Very low density lipoprotein (VLDL) cholesterol measurementOrdered By: Ángel Rivera on 03-06-2023 Cholesterol in VLDL Calc [Moles/Vol] 31 mg/dL 5-40 [facility] Basophil percentageOrdered B y: Ángel Rivera on 02-05-2023 Bilirubin [Mass/Vol] 0.60 mg/dL 0.20-1.00 [facility] Comment on above: For patients on eltr ombopag therapy, use of Dimension [place] TBIL is not recommended. Chloride [Moles/Vol] 104 mmol/L 98-107 [facility] Glucose [Mass/Vol] 105 mg/dL 74-106 [facility] Comment on above: Fasting Glucose resu lt from 100 to 125 mg/dL suggests IMPAIRED HOMEOSTASIS per A.D.A. criteria. Potassium [Moles/Vol] 3.8 mmol/L 3.5-5.1 [facility] Protein [Mass/Vol] 7.7 g/dL 6.4-8.2 [facility] Sodium [Moles/Vol] 138 mmol/L 136-145 [facility] WBC (Bld) [#/Vol] 9.5 10*3/uL 4.4-11.0 [facility] Blood erythrocytes count (nu mber/volume)Ordered By: Ángel Rivera on 02-05-2023 RBC (Bld) [#/Vol] 4.52 10*6/uL 4.2-5.4 [facility] Blood hemoglobin measurement (mass/volume)Ordered By: Ángel Rivera on 02-05-2023 Hemoglobin (Bld) [Mass/Vol] 13.2 g/dL 12.0-15.0 [facility] Blood platelet mean volumeOr dered By: Ángel Rivera on 02-05-2023 Platelet mean volume (Bld) [Entitic vol] 9.6 fL 6.2-12.0 [facility] Determination of erythrocyte mean corpuscular volume (MCV)Ordered By: Ángel Rivera on 02-05-2023 MCV (RBC) [Entitic vol] 91.4 fL 81-99 [facility] Hematocrit Auto (Bld) [Volum e fraction]Ordered By: Ángel Rivera on 02-05-2023 Hematocrit (Bld) [Volume fraction] 41.3 % 37-47 [facility] - Chemistry and C hemistry - challengeOrdered By: Ángel Rivera on 02-05-2023 ALP [Catalytic activity/Vol] 68 U/L 45-117 [facility] ALT [Catalytic activity/Vol] 26 U/L 13-56 [facility] CO2 [Moles/Vol] 28.0 mmol/L 21.0-32.0 [facility] Globulin (S) [Mass/Vol] 3.4 g/dL 2.2-4.2 [facility] Urea nitrogen/Creatinine [Mass ratio] 19.7 mg/mg 10-20 [facility] - Hematology and Cell countsOrdered By: Ángel Rivera on 02-05-2023 Erythrocyte distribution width (RBC) [Entitic vol] 43.2 fL 35.1-43.9 [facility] Erythrocyte distribution width (RBC) [Ratio] 12.9 % 11.6-14.6 [facility] MCH (RBC) [Entitic mass] 29.2 pg 27.0-32.0 [facility] MCHC Auto (RBC) [Mass/Vol]Or dered By: Ángel Rivera on 02-05-2023 MCHC (RBC) [Mass/Vol] 32.0 g/dL 32-36 [facility] No Panel InformationOrdered By: Ángel Rivera on 02-05-2023 Estimated GFR (MDRD) Amer 75 mL/min >60 [facility] Comment on above: GFR Calc Estimated GFR (MDRD) Non-Af Amer 62 mL/min >60 [facility] Comment on above: Non- GFR Calc Thyroid Stimulating Hormone (TSH) 2.26 uIU/mL 0.358-3.74 [facility] Vitamin D 25-Hydroxy 51.6 ng/mL [facility] Comment on above: Vitamin D 25(OH) Sta tus Range Deficiency <20 ng/mL (50nmol/L) Insufficiency 20 - 30 ng/mL (50 - 75 nmol/L) Sufficiency 30 - 100 ng/mL (75 - 250 nmol/L) Toxicity >100 ng/mL (>250 nmol/L) Platelets bldOrdered By: Holley Rivera on 02-05-2023 Platelets (Bld) [#/Vol] 308 10*3/uL 150-450 [facility] Serum or plasma albumin earnest urement (mass/volume)Ordered By: Ángel Rivera on 02-05-2023 Albumin [Mass/Vol] 4.3 g/dL 3.2-5.0 [facility] Serum or plasma albumin/glob ulin mass ratioOrdered By: Ángel Rivera on 02-05-2023 Albumin/Globulin [Mass ratio] 1.3 {ratio} 0.9-2.4 [facility] Serum or plasma calcium earnest urement (mass/volume)Ordered By: Ángel Rivera on 02-05-2023 Calcium [Mass/Vol] 10.1 mg/dL 8.5-10.1 [facility] Serum or plasma creatinine m easurement (mass/volume)Ordered By: Ángel Rivera on 02-05-2023 Creatinine [Mass/Vol] 0.91 mg/dL 0.55-1.02 [facility] Comment on above: The validity of the calculated GFR & GFRAA in patients over 70 years has not been determined. Clinical correlation is essential. Serum or plasma urea nitroge n measurement (mass/volume)Ordered By: Ángel Rivera on 02-05-2023 Urea nitrogen [Mass/Vol] 18 mg/dL 7-18 [facility] Thin prep Papanicolaou smear with manual screeningOrdered By: Ángel Rivera on 02-05-2023 Thin prep Papanicolaou smear with manual screening 24 U/L 15-37 [facility] Thin prep Papanicolaou smear with manual screening 6 5-15 [facility] Basophil percentageOrdered B y: Ángel Rivera on 09-21-2022 Chloride [Moles/Vol] 105 mmol/L 98-107 [facility] Cholesterol [Mass/Vol] 224 mg/dL <200 [facility] Comment on above: <200 mg/dL Desirable 200-240 mg/dL Borderline >240 mg/dL High Risk Glucose [Mass/Vol] 87 mg/dL 74-106 [facility] Potassium [Moles/Vol] 4.1 mmol/L 3.5-5.1 [facility] Sodium [Moles/Vol] 137 mmol/L 136-145 [facility] Triglyceride [Mass/Vol] 182 mg/dL <199 [facility] Comment on above: The drugs N-Acetylcy steine and Metamizole may falsely depress this assay.Serum Triglycerides Reference Interval Normal <150 mg/dL Borderline high 150 - 199 mg/dL High 200 - 499 mg/dL Very High > or = 500 mg/dL Laboratory - Chemistry and C hemistry - challengeOrdered By: Ángel Rivera on 09-21-2022 CO2 [Moles/Vol] 29.0 mmol/L 21.0-32.0 [facility] Free T4 [Mass/Vol] 1.20 ng/dL 0.76-1.46 [facility] Urea nitrogen/Creatinine [Mass ratio] 26.3 mg/mg 10-20 [facility] No Panel InformationOrdered By: Ángel Rivera on 09-21-2022 Estimated GFR (MDRD) Amer 84 mL/min >60 [facility] Comment on above: GFR Calc Estimated GFR (MDRD) Non-Af Amer 69 mL/min >60 [facility] Comment on above: Non- GFR Calc Free Triiodothyronine (T3) pg/dL 2.6 pg/mL 2.18-3.98 [facility] Thyroid Stimulating Hormone (TSH) 1.69 uIU/mL 0.358-3.74 [facility] Serum or plasma calcium earnest urement (mass/volume)Ordered By: Ángel Rivera on 09-21-2022 Calcium [Mass/Vol] 9.7 mg/dL 8.5-10.1 [facility] Serum or plasma cholesterol in HDL measurement (mass/volume)Ordered By: Ángel Rivera on 09-21-2022 Cholesterol in HDL [Mass/Vol] 67 mg/dL >40 [facility] Comment on above: The drugs N-Acetylcy steine and Metamizole may falsely depress this assay. Reference Range HDL <40 mg/dL Low HDL Cholesterol HDL >or= 60 mg/dL High HDL Cholesterol Serum or plasma cholesterol in VLDL measurement (mass/volume)Ordered By: Ángel Rivera on 09-21-2022 Cholesterol in VLDL [Mass/Vol] 36 mg/dL 5-40 [facility] Serum or plasma creatinine m easurement (mass/volume)Ordered By: Ángel Rivera on 09-21-2022 Creatinine [Mass/Vol] 0.84 mg/dL 0.55-1.02 [facility] Comment on above: The validity of the calculated GFR & GFRAA in patients over 70 years has not been determined. Clinical correlation is essential. Serum or plasma low density lipoprotein (LDL) cholesterol measurement (mass/volume)Ordered By: Ángel Rivera on 09-21-2022 Cholesterol in LDL [Mass/Vol] 121 mg/dL 0-130 [facility] Serum or plasma urea nitroge n measurement (mass/volume)Ordered By: Ángel Rivera on 09-21-2022 Urea nitrogen [Mass/Vol] 22 mg/dL 7-18 [facility] Thin prep Papanicolaou smear with manual screeningOrdered By: Ángel Rivera on 09-21-2022 Thin prep Papanicolaou smear with manual screening 3 5-15 [facility] Basophil percentageOrdered B y: Dr. Rivera on 03-21-2022 Chloride [Moles/Vol] 101 mmol/L 98-107 [facility] Cholesterol [Mass/Vol] 214 mg/dL <200 [facility] Comment on above: <200 mg/dL Desirable 200-240 mg/dL Borderline >240 mg/dL High Risk Glucose [Mass/Vol] 93 mg/dL 74-106 [facility] Potassium [Moles/Vol] 4.2 mmol/L 3.5-5.1 [facility] Sodium [Moles/Vol] 136 mmol/L 136-145 [facility] Triglyceride [Mass/Vol] 133 mg/dL <199 [facility] Comment on above: The drugs N-Acetylcy steine and Metamizole may falsely depress this assay.Serum Triglycerides Reference Interval Normal <150 mg/dL Borderline high 150 - 199 mg/dL High 200 - 499 mg/dL Very High > or = 500 mg/dL Laboratory - Chemistry and C hemistry - challengeOrdered By: Dr. Rivera on 03-21-2022 CO2 [Moles/Vol] 28.0 mmol/L 21.0-32.0 [facility] Free T4 [Mass/Vol] 1.45 ng/dL 0.76-1.46 [facility] Urea nitrogen/Creatinine [Mass ratio] 23.5 mg/mg 10-20 [facility] No Panel InformationOrdered By: Dr. Rivera on 03-21-2022 Estimated GFR (MDRD) Amer 87 mL/min >60 [facility] Comment on above: GFR Calc Estimated GFR (MDRD) Non-Af Amer 72 mL/min >60 [facility] Comment on above: Non- GFR Calc Free Triiodothyronine (T3) pg/dL 2.3 pg/mL 2.18-3.98 [facility] Thyroid Stimulating Hormone (TSH) 1.49 uIU/mL 0.358-3.74 [facility] Serum or plasma calcium earnest urement (mass/volume)Ordered By: Dr. Rivera on 03-21-2022 Calcium [Mass/Vol] 9.9 mg/dL 8.5-10.1 [facility] Serum or plasma cholesterol in HDL measurement (mass/volume)Ordered By: Dr. Rivera on 03-21-2022 Cholesterol in HDL [Mass/Vol] 72 mg/dL >40 [facility] Comment on above: The drugs N-Acetylcy steine and Metamizole may falsely depress this assay. Reference Range HDL <40 mg/dL Low HDL Cholesterol HDL >or= 60 mg/dL High HDL Cholesterol Serum or plasma cholesterol in VLDL measurement (mass/volume)Ordered By: Dr. Rivera on 03-21-2022 Cholesterol in VLDL [Mass/Vol] 27 mg/dL 5-40 [facility] Serum or plasma creatinine m easurement (mass/volume)Ordered By: Dr. Rivera on 03-21-2022 Creatinine [Mass/Vol] 0.81 mg/dL 0.55-1.02 [facility] Comment on above: The validity of the calculated GFR & GFRAA in patients over 70 years has not been determined. Clinical correlation is essential. Serum or plasma low density lipoprotein (LDL) cholesterol measurement (mass/volume)Ordered By: Dr. Rivera on 03-21-2022 Cholesterol in LDL [Mass/Vol] 115 mg/dL 0-130 [facility] Serum or plasma urea nitroge n measurement (mass/volume)Ordered By: Dr. Rivera on 03-21-2022 Urea nitrogen [Mass/Vol] 19 mg/dL 7-18 [facility] Thin prep Papanicolaou smear with manual screeningOrdered By: Dr. Rivera on 03-21-2022 Thin prep Papanicolaou smear with manual screening 7 5-15 [facility] Basophil percentageon 2021 Chloride [Moles/Vol] 102 mmol/L 98-107 [facility] Work Phone: Cholesterol [Mass/Vol] 217 mg/dL <200 [facility] Work Phone: Comment on above: <200 mg/dL Desirable 200-240 mg/dL Borderline >240 mg/dL High Risk Glucose [Mass/Vol] 87 mg/dL 74-106 [facility] Work Phone: Potassium [Moles/Vol] 4.0 mmol/L 3.5-5.1 [facility] Work Phone: Sodium [Moles/Vol] 134 mmol/L 136-145 [facility] Work Phone: Triglyceride [Mass/Vol] 155 mg/dL <199 [facility] Work Phone: Comment on above: The drugs N-Acetylcy steine and Metamizole may falsely depress this assay.Serum Triglycerides Reference Interval Normal <150 mg/dL Borderline high 150 - 199 mg/dL High 200 - 499 mg/dL Very High > or = 500 mg/dL Laboratory - Chemistry and C hemistry - challengeon 09-13-2021 CO2 [Moles/Vol] 26.0 mmol/L 21.0-32.0 [facility] Work Phone: Free T4 [Mass/Vol] 1.27 ng/dL 0.76-1.46 [facility] Work Phone: Urea nitrogen/Creatinine [Mass ratio] 20.4 mg/mg 10-20 [facility] Work Phone: No Panel Informationon 09-13 Estimated GFR (MDRD) Amer 78 mL/min >60 [facility] Work Phone: Comment on above: GFR Calc Estimated GFR (MDRD) Non-Af Amer 65 mL/min >60 [facility] Work Phone: Comment on above: Non- GFR Calc Free Triiodothyronine (T3) pg/dL 2.6 pg/mL 2.18-3.98 [facility] Work Phone: Thyroid Stimulating Hormone (TSH) 1.39 uIU/mL 0.358-3.74 [facility] Work Phone: Serum or plasma calcium earnest urement (mass/volume)on 09-13-2021 Calcium [Mass/Vol] 9.9 mg/dL 8.5-10.1 [facility] Work Phone: Serum or plasma cholesterol in HDL measurement (mass/volume)on 09-13-2021 Cholesterol in HDL [Mass/Vol] 62 mg/dL >40 [facility] Work Phone: Comment on above: The drugs N-Acetylcy steine and Metamizole may falsely depress this assay. Reference Range HDL <40 mg/dL Low HDL Cholesterol HDL >or= 60 mg/dL High HDL Cholesterol Serum or plasma cholesterol in VLDL measurement (mass/volume)on 09-13-2021 Cholesterol in VLDL [Mass/Vol] 31 mg/dL 5-40 [facility] Work Phone: Serum or plasma creatinine m easurement (mass/volume)on 09-13-2021 Creatinine [Mass/Vol] 0.88 mg/dL 0.55-1.02 [facility] Work Phone: Comment on above: The validity of the calculated GFR & GFRAA in patients over 70 years has not been determined. Clinical correlation is essential. Serum or plasma low density lipoprotein (LDL) cholesterol measurement (mass/volume)on 09-13-2021 Cholesterol in LDL [Mass/Vol] 124 mg/dL 0-130 [facility] Work Phone: Serum or plasma urea nitroge n measurement (mass/volume)on 09-13-2021 Urea nitrogen [Mass/Vol] 18 mg/dL 7-18 [facility] Work Phone: Thin prep Papanicolaou smear with manual screeningon 09-13-2021 Thin prep Papanicolaou smear with manual screening 6 5-15 [facility] Work Phone: Vital Signs Date Time Vital Sign Value Performing Clinician Faci taniya 08-17-2024 13:40-0400 Body height 165.[address] Ángel Rivera MD Work Phone: [facility] 08-17-2024 13:40-0400 Diastolic blood pressure 75 mm[Hg] Dr. Ángel Rivera MD Work Phone: [facility] 08-17-2024 13:40-0400 Heart rate 107 /min Dr. Ángel Rivera MD Work Phone: [phone] [place] [address] 08-17-2024 13:40-0400 Respiratory rate 18 /min Dr. Ángel Rivera MD Work Phone: [phone] [place] [address] 08-17-2024 13:40-0400 Systolic blood pressure 125 mm[Hg] Dr. Ángel Rivera MD Work Phone: [phone] [place] [address] 07-01-2024 06:51-0400 Body mass index (BMI) [Ratio] 22.4 kg/m2 Dr. Ángel Rivera MD Work Phone: [phone] [place] [address] 07-01-2024 06:51-0400 Body weight 61.[address] Ángel Rivera MD Work Phone: [phone] [place] [address] 07-01-2024 06:51-0400 Diastolic blood pressure 86 mm[Hg] Dr. Ángel Rivera MD Work Phone: [phone] [place] [address] 07-01-2024 06:51-0400 Heart rate 98 /min Dr. Ángel Rivera MD Work Phone: [phone] [place] [address] 07-01-2024 06:51-0400 Respiratory rate 18 /min Dr. Ángel Rivera MD Work Phone: [phone] [place] [address] 07-01-2024 06:51-0400 Systolic blood pressure 136 mm[Hg] Dr. Ángel Rivera MD Work Phone: [phone] [place] [address] 06-05-2024 15:28-0400 Body height 165.[address] Ángel Rivera MD Work Phone: [phone] [place] [address] 06-05-2024 15:28-0400 Body mass index (BMI) [Ratio] 24.6 kg/m2 Dr. Ángel Rivera MD Work Phone: [phone] [place] [address] 06-05-2024 15:28-0400 Body weight 67.[address] Ángel Rivera MD Work Phone: [phone] [place] [address] 06-05-2024 15:28-0400 Diastolic blood pressure 90 mm[Hg] Dr. Ángel Rivera MD Work Phone: [facility] 06-05-2024 15:28-0400 Heart rate 117 /min Dr. Ángel Rivera MD Work Phone: [facility] 06-05-2024 15:28-0400 Respiratory rate 18 /min Dr. Ángel Rivera MD Work Phone: [facility] 06-05-2024 15:28-0400 Systolic blood pressure 134 mm[Hg] Dr. Ángel Rivera MD Work Phone: [facility] 05-15-2023 10:25-0400 Body height 165.[address] Ángel Rivera Work Phone: [facility] 05-15-2023 10:25-0400 Body mass index (BMI) [Ratio] 27.4 kg/m2 Dr. Ángel Rivera Work Phone: [facility] 05-15-2023 10:25-0400 Body weight 74.[address] Ángel Rivera Work Phone: [facility] 05-15-2023 10:25-0400 Diastolic blood pressure 82 mm[Hg] Dr. Ángel Rivera Work Phone: [facility] 05-15-2023 10:25-0400 Heart rate 94 /min Dr. Ángel Rivera Work Phone: [facility] 05-15-2023 10:25-0400 Respiratory rate 18 /min Dr. Ángel Rivera Work Phone: [facility] 05-15-2023 10:25-0400 Systolic blood pressure 144 mm[Hg] Dr. Ángel Rivera Work Phone: [facility] 04-24-2023 10:14-0400 Diastolic blood pressure 64 mm[Hg] Dr. Ángel Rivera Work Phone: [facility] 04-24-2023 10:14-0400 Heart rate 90 /min Dr. Ángel Rivera Work Phone: [facility] 04-24-2023 10:14-0400 Respiratory rate 16 /min Dr. Ángel Rivera Work Phone: [facility] 04-24-2023 10:14-0400 Systolic blood pressure 144 mm[Hg] Dr. Ángel Rivera Work Phone: [facility] 04-10-2023 12:55-0500 Body height 165.[address] Ángel Rivera Work Phone: [facility] 04-10-2023 12:55-0500 Body mass index (BMI) [Ratio] 27.3 kg/m2 Dr. Ángel Rivera Work Phone: [facility] 04-10-2023 12:55-0500 Body weight 74.[address] Ángel Rivera Work Phone: [facility] 04-10-2023 12:55-0500 Diastolic blood pressure 98 mm[Hg] Dr. Ángel Rivera Work Phone: [facility] 04-10-2023 12:55-0500 Heart rate 86 /min Dr. Ángel Rivera Work Phone: [facility] 04-10-2023 12:55-0500 Respiratory rate 18 /min Dr. Ángel Rivera Work Phone: [facility] 04-10-2023 12:55-0500 Systolic blood pressure 155 mm[Hg] Dr. Ángel Rivera Work Phone: [facility] Encounters Encounter Date Encounter Type Care Provider Facility Start: 09-01-2024 ambulatory Alfonso naomi Facility :[facility] Start: 08-17-2024 End: 08-17-2024 Patient encounter procedure Mikhail OVERTON -[facility] Work Phone: Start: 08-17-2024 End: 08-17-[address] Ángel Rivera MD Work Phone: -[facility] Start: 08-17-2024 End: 08-17-2024 ambulatory Mikhail Fernández Facility:[facility] Start: 07-22-2024 End: 07-22-[address] Ángel Rivera MD Work Phone: [facility] Work Phone: Start: 07-22-2024 End: 07-22-[address] Alfonso Ruano MD -[facility] [place] Work Phone: Start: 07-22-2024 End: 07-22-2024 ambulatory Ángel Rivera Facility:[facility] Start: 07-17-2024 End: 07-17-[address] Ángel Rivera MD Work Phone: [facility] Work Phone: Start: 07-17-2024 End: 07-17-2024 Patient encounter procedure Mikhail Fernández PA -Laboratory Work Phone: Start: 07-17-2024 End: 07-17-2024 ambulatory Mikhail Fernández Facility:[facility] Start: 07-14-2024 Non-patient / Non-visit Dr. Orlando Almaraz MD -[facility] Work Phone: Start: 07-14-2024 End: 07-14-[address] Ángel Rivera MD Work Phone: [facility] Work Phone: Start: 07-14-2024 End: 07-14-2024 Patient encounter procedure Mikhail OVERTON -Pulmonary Services/Neurology Work Phone: Start: 07-14-2024 End: 07-14-2024 ambulatory Ángel Rivera Facility:[facility] Start: 07-02-2024 Non-patient / Non-visit Dr. Reba ROB -[facility] Start: 07-02-2024 End: 07-02-[address] Ángel Rivera MD Work Phone: [facility] Work Phone: Start: 07-02-2024 End: 07-02-2024 Patient encounter procedure Mikhail Fernández PA -Cardiovascular Services Work Phone: Start: 07-01-2024 End: 07-01-2024 Patient encounter procedure Mikhail Saskiaiter PA -[facility] Work Phone: Start: 07-01-2024 End: 07-02-[address] Ángel Rivera MD Work Phone: [facility] Work Phone: Start: 06-16-2024 End: 06-16-[address] Ángel Rivera MD Work Phone: [facility] Work Phone: Start: 06-16-2024 End: 06-16-2024 Patient encounter procedure Mikhail Pradeep PA -Laboratory Work Phone: Start: 06-16-2024 End: 06-16-2024 ambulatory Ángel Rivera Facility:[facility] Start: 06-05-2024 End: 06-05-[address] Ángel Rivera MD Work Phone: [facility] Work Phone: Start: 06-05-2024 End: 06-05-2024 Patient encounter procedure Mikhail Saskiaana maria PA -Laboratory Work Phone: Start: 06-05-2024 End: 06-05-2024 ambulatory Ángel Rivera [place] Start: 06-05-2024 End: 06-05-2024 Patient encounter procedure Mikhail Saskiaiter PA -[facility] Work Phone: Start: 06-05-2024 End: 06-05-2024 ambulatory Ángel Rivera Facility:[facility] Start: 04-28-2024 ambulatory Ángel Rivera Facility:[facility] Start: 04-23-2024 End: 04-23-[address] Ángel Rivera MD Work Phone: [facility] Work Phone: Start: 04-23-2024 End: 04-23-[address] [facility] Start: 04-22-2024 End: 04-23-[address] Ángel Rivera MD Work Phone: [facility] Work Phone: Start: 04-22-2024 End: 04-22-[address] Alfonso Ruano MD -Laboratory, [place] Work Phone: Start: 04-22-2024 End: 04-22-2024 ambulatory Alfonso Ruano Facility:[facility] Start: 03-18-2024 End: 03-18-[address] [facility] Start: 03-18-2024 End: 03-18-2024 ambulatory Ángel Rivera Facility:[facility] Start: 11-22-2023 End: 11-22-2023 ambulatory Ángel Rivera [place] [place] Start: 11-22-2023 End: 11-22-2023 ambulatory Orlando Almaraz Facility:[facility] Start: 09-19-2023 End: 09-19-2023 ambulatory Ángel Rivera Facility:[facility] Start: 05-15-2023 End: 05-15-[address] Ángel Rivera Work Phone: [facility] Work Phone: Start: 05-13-2023 Non-patient / Non-visit Dr. Herman Rivera Work Phone: [facility] Start: 05-13-2023 End: 05-13-[address] Ángel Rivera Work Phone: [facility] Work Phone: Start: 05-13-2023 End: 05-13-[address] [facility] Start: 04-24-2023 End: 04-24-[address] Ángel Rivera Work Phone: [facility] Work Phone: Start: 04-24-2023 End: 04-24-[address] Ángel Rivera Work Phone: [facility] Work Phone: Start: 04-17-2023 End: 04-17-[address] Ángel Rivera Work Phone: [facility] Work Phone: Start: 04-17-2023 End: 04-17-[address] Ángel Rivera Work Phone: [facility] Work Phone: Start: 04-10-2023 End: 04-10-[address] Ángel Rivera Work Phone: [facility] Work Phone: Start: 03-06-2023 End: 03-06-2023 ambulatory [facility] Work Phone: Start: 03-06-2023 End: 03-06-2023 Patient encounter procedure [facility] Start: 02-05-2023 End: 02-05-2023 ambulatory [facility] Work Phone: Start: 02-05-2023 End: 02-05-2023 Patient encounter procedure [facility] Start: 09-21-2022 End: 09-21-2022 ambulatory [facility] Work Phone: Start: 09-21-2022 End: 09-21-2022 Patient encounter procedure [facility] Start: 03-21-2022 End: 03-21-2022 ambulatory [facility] Work Phone: Start: 03-21-2022 End: 03-21-2022 Patient encounter procedure [facility] Start: 09-13-2021 End: 09-13-2021 Patient encounter procedure [facility] Procedures Date Procedure Procedure Detail Performing Clinician [...] Care Activity Detail Author 24 Hour ECG [facility] Basic metabolic 2007 panel with ionized calcium - Serum or Plasma [facility] Basic metabolic 2007 panel with ionized calcium - Serum or Plasma [facility] Basic metabolic 2007 panel with ionized calcium - Serum or Plasma [facility] Blood chemistry [facility] Complete blood count [facility] Elastase.pancreatic [Presence] in Stool [facility] Fat [Mass/mass] in Stool [facility] Fat.neutral [Presence] in Stool [facility] Immunizations Immunization Date Immunization Notes Care Provider Fa [facility] 10-28-2019 influenza, injectabl e, quadrivalent, preservative free [facility] 10-28-2019 influenza, seasonal, injectable [facility] Payers Date Payer Category Payer Private Health Insurance 101 [id number] 2023 Self-pay [id number] 2016 [id number] Medicare [id number] Unknown [id number] 2.16.8 [id number] Unknown [id number] 2.16.8 [id number] Unknown [id number] 2.16.8 [id number] Unknown [id number] 2.16.8 [id number] Unknown [id number] 2.16.8 [id number] Unknown [id number] 2.16.8 [id number] Unknown [id number] 2.16.8 [id number] Unknown [id number] 2.16.8 [id number] Unknown [id number] 2.16.8 [id number] Unknown [id number] 2.16.8 [id number] Unknown [id number] 2.16.8 [id number] Unknown [id number] 2.16.8 [id number] Unknown [id number] 2.16.8 [id number] Unknown [id number] 2.16.8 [id number] Unknown [id number] 2.16.8 [id number] Unknown [id number] 2.16.8 [id number] Unknown [id number] 2.16.8 [id number] Unknown [id number] 2.16.8 [id number] Unknown [id number] 2.16.8 [id number] Unknown [id number] 2.16.8 [id number] Social History Date Type Detail Facility Start: 10-28-2019 End: 05-15-2023 Tobacco smoking status NHIS Unknown if ever smoked [facility] Start: 1940 Sex Assigned At Female W [facility] Start: 05-15-2023 Tobacco smoking stat us NHIS Never smoked tobacco (finding) [facility] Start: 04-29-2024 End: 06-09-2024 Sex Female (finding) [facility] Evaluation note 06-05-2024 Note Date & Type Note Facility 06-05-2024 Evaluation note Diagnosis Onset Date Resolution Atrial fibrillation acute June 05, 2024 3:26pm Bilateral lower extremity edema acute June 05, 2024 3:26pm Dyspnea on exertion acute June 05, 2024 3:26pm Hypertension chronic June 05, 2024 3:26pm [facility] Work Phone: Evaluation note 06-05-2024 Note Date & Type Note Facility 06-05-2024 Evaluation note Diagnosis Onset Date Resolution Atrial fibrillation acute June 05, 2024 3:26pm Bilateral lower extremity edema acute June 05, 2024 3:26pm Dyspnea on exertion acute June 05, 2024 3:26pm Hypertension chronic June 05, 2024 3:26pm Atrial fibrillation acute June 122024 1:01pm Hypertension chronic July 01 1:01pm [employer] [employer] Work Phone: Evaluation note 06-05-2024 Note Date [...] Dyspnea on exertion resolved June 122024 1:01pm [facility] Work Phone: Evaluation note 06-05-2024 Note [...] Dyspnea on exertion resolved June 122024 1:01pm Atrial fibrillation acute August 17, 2024 1:38pm Hypertension chronic August 17 1:38pm Bilateral lower extremity edema resolved August 17, 2024 1 :38pm Dyspnea on exertion resolved August 17, 2024 1:38pm [facility] Work Phone: Evaluation note 06-05-2024 Note Date [...] Dyspnea on exertion resolved June 122024 1:01pm Atrial fibrillation acute August 17, 2024 1:38pm Hypertension chronic August 17 1:38pm Bilateral lower extremity edema resolved August 17, 2024 1 :38pm [facility] Work Phone: Evaluation note Note Date & Type Note Facility Evaluation note No assessment information availa [facility] Work Phone: Evaluation note Note Date & Type Note Facility Evaluation note Diagnosis Onset Date Atrial fibrillation acute Hypertension [facility] Work Phone: Evaluation note Note Date & Type Note Facility Evaluation note Diagnosis Onset Date Atrial fibrillation acute Hypertension chronic Atrial fibrillation acute Hypertension [facility] Work Phone: Reason for referral (narrative) Note Date & Type Note Facility Reason for referral (narrative) No reason for referral information available [facility] Work Phone: Family History No Family History [...] Will Yes February 21 10:19am Power of Italian Lecturer Yes February 21, 2018 10:19am Advance Directive Response Recorded Date/ Time Living Will Yes February 21 9:19am Power of Italian Lecturer Yes February 21, 2018 9:19am Chief Complaint [...] on exertion July 01, 2024 1:01p m Chief Complaint Admit Date SEE ORDER April 22, 2024 3:3 8pm [facility] April 23, 2024 12: 49pm 6 M FU June 05, 2024 3:2 6pm eorder June 05, 2024 4:2 8pm INT LAB ORDER June 16, 2024 11:41a m 4 WK FU July 01, 2024 1:01p m CHF, SOB July 02, 2024 12:43 pm AFIB July 14, 2024 1:05p m Chief Complaint Admit Date SEE ORDER April 22, 2024 3:3 8pm [facility] April 23, 2024 12: 49pm 6 M FU June 05, 2024 3:2 6pm eorder June 05, 2024 4:2 8pm INT LAB ORDER June 16, 2024 11:41a m 4 WK FU July 01, 2024 1:01p m CHF, SOB July 02, 2024 12:43 pm AFIB July 14, 2024 1:05p m Atrial fibrillation July 14, 2024 1:29p m STOOL July 22, 2024 2:15 pm Chief Complaint Admit Date SEE ORDER April 22, 2024 3:3 8pm [facility] April 23, 2024 12: 49pm 6 M FU June 05, 2024 3:2 6pm eorder June 05, 2024 4:2 8pm INT LAB ORDER June 16, 2024 11:41a m 4 WK FU July 01, 2024 1:01p m CHF, SOB July 02, 2024 12:43 pm AFIB July 14, 2024 1:05p m Atrial fibrillation July 14, 2024 1:29p m STOOL July 22, 2024 2:15 pm 4 WK FU August 17, 2024 1:38p m Reason for Visit Admit Date Atrial fibrillation June 05, 2024 3:2 6pm Hypertension June 05, 2024 3:2 6pm Bilateral lower extremity edema June 052024 3:26pm Dyspnea on exertion June 05, 2024 3:2 6pm Atrial fibrillation July 01, 2024 1:01p m Hypertension July 01, 2024 1:01p m Bilateral lower extremity edema June 1:01pm Dyspnea on exertion July 01, 2024 1:01p m Atrial fibrillation August 17, 2024 1:38p m Hypertension August 17, 2024 1:38p m Bilateral lower extremity edema August 1:38pm Dyspnea on exertion August 17, 2024 1:38p m Reason for Visit Admit Date Atrial fibrillation June 05, 2024 3:2 6pm Hypertension June 05, 2024 3:2 6pm Bilateral lower extremity edema June 052024 3:26pm Dyspnea on exertion June 05, 2024 3:2 6pm Atrial fibrillation July 01, 2024 1:01p m Hypertension July 01, 2024 1:01p m Bilateral lower extremity edema June 1:01pm Dyspnea on exertion July 01, 2024 1:01p m Atrial fibrillation August 17, 2024 1:38p m Hypertension August 17, 2024 1:38p m Bilateral lower extremity edema August 1:38pm Summary Purpose Additional Source Comments Goals (unrecognized [...] 2024 End: June 05, 2024 HERMAN Terrazas Referring Provider Active St art: June 05, [...] July 02, 2024 End: July 02, 2024 Mikhail Demiter , PA Referring Provider Active St art: July 02, 2024 End: July 02, 2024 Team Status: Active Member Role Status Dates Dr. Ángel Rivera MD Primary Care Provider Active Start: July 02, 2024 Dr. Darryl Thomason MD Attending Provider Active S tart: July 02, 2024 Team Status: Inactive Member Role Status Dates Dr. Ángel Rivera MD Primary Care Provider Active Start: July 14, 2024 End: July 14, 2024 Mikhailjose manuel Fernández , PA Attending Provider Active St art: July 14, 2024 End: July 14, 2024 Mikhail Demiter , PA Referring Provider Active St art: July 14, 2024 End: July 14, 2024 Team Status: Active Member Role Status Dates Dr. Ángel Rivera MD Primary Care Provider Active Start: July 17, 2024 Mikhail Pradeep , PA Attending Provider Active St art: July 17, 2024 Mikhail Pradeep , PA Referring Provider Active St art: July 17, 2024 Team Status: Active Member Role Status Dates Dr. Ángel Rivera MD Primary Care Provider Active Start: July 14, 2024 Dr. Orlando Almaraz MD Attending Provider Active Start: July 14, 2024 Mikhail Demiter , PA Referring Provider Active St art: July 14, 2024 Team Status: Inactive Member Role Status Dates Dr. Ángel Rivera MD Primary Care Provider Active Start: July 17, 2024 End: July 17, 2024 Mikhail Demiter , PA Attending Provider Active St art: July 17, 2024 End: July 17, 2024 Mikhail Demiter , PA Referring Provider Active St art: July 17, 2024 End: July 17, 2024 Team Status: Active Member Role Status Dates Dr. Ángel Rivera MD Primary Care Provider Active Start: July 22, 2024 Dr. Alfonso Ruano MD Attending Provider Active Start: July 22, 2024 Dr. Alfonso Ruano MD Referring Provider Active Start: July 22, 2024 Team Status: Inactive Member Role Status Dates Dr. Ángel Rivera MD Primary Care Provider Active Start: July 22, 2024 End: July 22, 2024 Dr. Alfonso Ruano MD Attending Provider Active Start: July 22, 2024 End: July 22, 2024 Dr. Alfonso Ruano MD Referring Provider Active Start: July 22, 2024 End: July 22, 2024 Team Status: Active Member Role/Relationship Status Dates Dr. Ángel Rivera MD Primary Care Provider Active Team Status: Inactive Member Role/Relationship Status Dates Dr. Ángel Rivera MD Primary Care Provider Active Start: April 22, 2024 End: April 22, 2024 Dr. Alfonso Ruano MD Attending Provider Active Start: April 22, 2024 End: April 22, 2024 Dr. Alfonso Ruano MD Referring Provider Active Start: April 22, 2024 End: April 22, 2024 Team Status: Inactive Member Role/Relationship Status Dates Dr. Ángel Rivera MD Primary Care Provider Active Start: April 23, 2024 End: April 23, 2024 Dr. Alfonso Ruano MD Attending Provider Active Start: April 23, 2024 End: April 23, 2024 Dr. Alfonso Ruano MD Referring Provider Active Start: April 23, 2024 End: April 23, 2024 Team Status: Inactive Member Role/Relationship Status Dates Dr. Ángel Rivera MD Primary Care Provider Active Start: June 05, 2024 End: June 05, 2024 Dr. Ángel Rivera MD Referring Provider Active Start: June 05, 2024 End: June 05, 2024 HERMAN Terrazas Attending Provider Active St art: June 05, 2024 End: June 05, 2024 Team Status: Inactive Member Role/Relationship Status Dates Dr. Ángel Rivera MD Primary Care Provider Active Start: June 05, 2024 End: June 05, 2024 HERMAN Terrazas Attending Provider Active St art: June 05, 2024 End: June 05, 2024 HERMAN Terrazas Referring Provider Active St art: June 05, 2024 End: June 05, 2024 Team Status: Inactive Member Role/Relationship Status Dates Dr. Ángel Rivera MD Primary Care Provider Active Start: June 16, 2024 End: June 16, 2024 HERMAN Terrazas Attending Provider Active St art: June 16, 2024 End: June 16, 2024 HREMAN Terrazas Referring Provider Active St art: June 16, 2024 End: June 16, 2024 Team Status: Inactive Member Role/Relationship Status Dates Dr. Ángel Rivera MD Primary Care Provider Active Start: July 01, 2024 End: July 01, 2024 Dr. Ángel Rivera MD Referring Provider Active Start: July 01, 2024 End: July 01, 2024 Mikhail Fernández PA Attending Provider Active St art: July 01, 2024 End: July 01, 2024 Team Status: Inactive Member Role/Relationship Status Dates Dr. Ángel Rivera MD Primary Care Provider Active Start: July 02, 2024 End: July 02, 2024 Mikhailjose manuel Fernández , PA Attending Provider Active St art: July 02, 2024 End: July 02, 2024 Mikhailjose manuel Fernández , [place] Referring Provider Active St art: July 02, 2024 End: July 02, 2024 Team Status: Active Member Role/Relationship Status Dates Dr. Ángel Rivera MD Primary Care Provider Active Start: July 02, 2024 Dr. Darryl Thomason MD Attending Provider Active S tart: July 02, 2024 Team Status: Inactive Member Role/Relationship Status Dates Dr. Ángel Rivera MD Primary Care Provider Active Start: July 14, 2024 End: July 14, 2024 Mikhail Fernández PA Attending Provider Active St art: July 14, 2024 End: July 14, 2024 Mikhail Pradeep , PA Referring Provider Active St art: July 14, 2024 End: July 14, 2024 Team Status: Active Member Role/Relationship Status Dates Dr. Ángel Rivera MD Primary Care Provider Active Start: July 14, 2024 Dr. Orlando Almaraz MD Attending Provider Active Start: July 14, 2024 Mikhail Fernández , PA Referring Provider Active St art: July 14, 2024 Team Status: Inactive Member Role/Relationship Status Dates Dr. Ángel Rivera MD Primary Care Provider Active Start: July 17, 2024 End: July 17, 2024 Mikhailjose manuel Fernández , PA Attending Provider Active St art: July 17, 2024 End: July 17, 2024 Mikhail Pradeep , PA Referring Provider Active St art: July 17, 2024 End: July 17, 2024 Team Status: Inactive Member Role/Relationship Status Dates Dr. Ángel Rivera MD Primary Care Provider Active Start: July 22, 2024 End: July 22, 2024 Dr. Alfonso Ruano MD Attending Provider Active Start: July 22, 2024 End: July 22, 2024 Dr. Alfonso Ruano MD Referring Provider Active Start: July 22, 2024 End: July 22, 2024 Team Status: Inactive Member Role/Relationship Status Dates Dr. Ángel Rivera MD Primary Care Provider Active Start: August 17, 2024 End: August 17, 2024 Dr. Ángel Rivera MD Referring Provider Active Start: August 17, 2024 End: August 17, 2024 HERMAN Terrazas Attending Provider Active St art: August 17, 2024 End: August 17, 2024 Team Status: Inactive Member Role/Relationship Status Dates Dr. Ángel Rivera MD Primary Care Provider Active Start: August 17, 2024 End: August 17, 2024 HERMAN Terrazas Attending Provider Active St art: August 17, 2024 End: August 17, 2024 HERMAN Terrazas Referring Provider Active St art: August 17, 2024 End: August 17, 2024 INFORMATION SOURCE (unrecogn ized section and content) DATE CREATED AUTHOR 08/28/2024 [facility] FOR RECORDS PERTAINING TO PATIENTS WHO ARE [...] BE BASED ON THE PRIMARY CLINICAL RECORDS. [facility]. provides no warranty or guarantee of the accuracy or completeness of information in this document.
== END | disposition home or self-care (01) ==
LOC: CT 07:01
PROVIDERS: PCP Family Medicine; Referring Provider Internal Medicine Gastroenterology; Visit Provider Internal Medicine Gastroenterology
DX: K86.89 Other specified diseases of pancreas (principal); R63.4 Abnormal weight loss
CPT/HCPCS: 74160; Q9967; A4216

== ENCOUNTER → 2024-09-21 | Outpatient (CLI) | payer MEDICARE, SELFPAY ==
[2024-09-21 17:03] LABS: AST(SGOT) 23 U/L (<=31); Alanine Aminotransfer ALT/SGPT 15 U/L (<=34); Albumin, Serum 4.4 g/dL (3.4-4.8); Alkaline Phosphatase 56 U/L (35-104); Anion Gap 13 (5-15); BUN 32 mg/dL (4-19); BUN/Creat Ratio 25.6 RATIO (10-20); Calcium,Total 10.2 mg/dL (7.6-11.0); Carbon Dioxide 20.6 mmol/L (21.0-32.0); Chloride 101 mmol/L (98-108); Free T3 1.8 pg/mL (2.18-3.98); Globulin 2.0 g/dL (2.2-4.2); Glucose 90 mg/dL (70-99); Potassium 4.3 mmol/L (3.3-5.1)
== END | disposition home or self-care (01) ==
LOC: MFPLAB 11:22
PROVIDERS: PCP Family Medicine; Visit Provider Family Medicine
DX: E03.9 Hypothyroidism, unspecified (principal); R60.9 Edema, unspecified
CPT/HCPCS: 36415; 80053; 84439; 84443; 84481